=== PATIENT | male | born 1955 | race Caucasian/White ===

== ENCOUNTER 2017-11-16 15:55 | Emergency (ER) | payer OTHER, SELFPAY ==
[2017-11-16 16:01] VITALS: BP 130/86; PULSE 94; RESP 18; TEMP 36.9; O2SAT 98
--- NOTE | 2017-11-16 18:49 | ED.EXTPRO ---
HPI - Extremity Problem General Chief complaint: Extremity Problem,Nontraumatic Stated complaint: STATES NEEDS ARM DRAINED Time Seen by Provider: 11/16/17 17:33 Source: patient Limitations: no limitations History of Present Illness HPI Narrative: This a 62-year-old male comes to the emergency department with complaint of swelling and pain in his left elbow. Patient states that he noticed swelling in the last 2 days. He has always had a little bit of a fluid collection on the end of his elbow but he started getting painful just recently and then in the last day has been having swelling and redness. Had a area swelling at the end of the elbow has increased dramatically in size. Patient denies any fevers, he denies any numbness or tingling in his extremity. He is having pain, he is able to flex and extend his elbow but full flexion is comfortable. He has not had similar symptoms in the past. He has not had any nausea or vomiting no chest pain or shortness of breath. He has not had any injuries or cuts to the area. He does have a history of blood pressure, cholesterol as well as coronary artery disease with a prior CA. He states he has had no coronary artery stents. He has had drainage of his left knee in the past but states that that was a different circumstance. He denies any medication allergies. He does take aspirin daily. Related Data Home Medications Medication Instructions Recorded Confirmed ASPIRIN (#ASPIRIN) 81 mg PO QDAY #0 01/26/11 11/16/17 Previous Rx's Medication Instructions Recorded lisinopril 0 PO QDAY #180 tab 06/01/16 alendronate [Fosamax] 70 mg PO Q7D@0730 #12 tab 12/01/16 atorvastatin 80 mg PO HS #90 tab 12/01/16 prednisone 5 mg tablet See Label Instructions PO DAILY 10/13/17 #100 tab clindamycin HCl 300 mg PO QID #40 caplet 11/16/17 Allergies Allergy/AdvReac Type Severity Reaction Status Date / Time No Known Allergies Allergy Uncoded 11/16/17 16:01 Review of Systems Review of Systems All systems reviewed & are unremarkable except as noted in HPI and below Constitutional Denies fever(s) Cardiovascular Denies chest pain and Denies dyspnea Respiratory Denies dyspnea Gastrointestinal Gastrointestinal: Denies nausea and Denies vomiting Musculoskeletal Reports as per HPI, Reports joint swelling, Denies muscle weakness, Denies numbness and Denies tingling Integumentary/Breasts Reports erythema Neurologic Denies numbness and Denies tingling COUNT INCLUDES THE [facility] Medical History CAD (coronary artery disease) (Chronic) GERD (gastroesophageal reflux disease) (Chronic) Gout (Chronic) Hyperlipidemia (Chronic) Hypertension (Chronic) Osteopenia (Chronic) Steroid-dependent asthma (Chronic) Non-STEMI (non-ST elevated myocardial infarction) (Resolved 06/2009) Surgical History Status post arthroscopy (Resolved 2002) Status post cardiac catheterization (Resolved 06/2009) Social History Smoking Status: Never smoker Exam Narrative Exam Narrative: GENERAL: Alert and oriented x three, well-nourished, well-appearing male in mild distress. HEENT: Head normocephalic, atraumatic, EOMI, pupils reactive, face symmetric, moist mucous membranes NECK: Supple, full range of motion CARDIOVASCULAR: Regular rate and rhythm without murmurs, rubs or gallops. RESPIRATORY: Breath sounds equal bilaterally, no wheezes rales or rhonchi. EXTREMITIES: Normal range of motion of left upper extremity although patient has more pain with full flexion, he is fairly comfortable with flexion-extension. 2+ radial pulse on the left. He does have swelling of the left upper extremity as well as erythema extending from the elbow extending retirement up the arm. Patient also has some swelling extending towards the wrist. He has equal corpsman bilaterally. Full range of motion of all 5 fingers and muscle strength, patient has a 6 cm by 4 cm area of swelling over the elbow in the area of the bursa and extending distally. It is 10, platelets tender to palpation with what appears to be whiteheads forming although there is no drainage currently. no clubbing. Neurovascularly intact. NEUROLOGICAL: Cranial nerves II through XII grossly intact. Moving all extremities SKIN: Warm, dry, no petechiae, no rashes or lesions. Initial Vital Signs Initial Vital Signs: Vital Signs Temperature 98.4 F 11/16/17 16:01 Pulse Rate 94 H 11/16/17 16:01 Respiratory Rate 18 11/16/17 16:01 Blood Pressure 130/86 11/16/17 16:01 Pulse Oximetry 98 11/16/17 16:01 Procedures Bursa Procedure Time Out Performed: Yes Side of body: left Site of Procedure: olecranon bursa XRAY Obtained: none Antisepsis Used: Povidone-Iodine1% Local Anesthetic: lidocaine 1% Amount of anesthesia used (mL): 6 Fluid obtained (mL): 20 Fluid Type: bloody (Serosanguineous.) Patient Tolerated Procedure: Well Complications: none Additional Comments: Bandage was applied. Fluid was sent for analysis. Course Orders Ordered: ED Orders 11/16/17 22:39 Body Fluid Culture Stat Discontinued Medications Clindamycin HCl (Cleocin) 300 mg PO NOW ONE Stop: 11/16/17 21:36 Last Admin: 11/16/17 21:30 Dose: 300 mg Vancomycin HCl 1,250 mg/ (Sodium Chloride) 250 mls @ 250 mls/hr IV NOW ONE Stop: 11/16/17 18:48 Last Infusion: 11/16/17 21:10 Dose: 0 mls/hr Admin: 11/16/17 19:11 Dose: 250 mls/hr Consultations Consultation #1: Dr. Laith ndiaye, call back @[phone]. Asks for aspiration she does not currently recommend I and D and recommends keflex vs. other antibiotic. Does not recommend travel at this time. Time: 18:56 Vital Signs - 8 hr 11/16/17 16:01 11/16/17 20:29 Temperature 98.4 F 100.5 F H Pulse Rate 94 H 80 Respiratory Rate 18 18 Blood Pressure 130/86 Blood Pressure [Left Arm] 120/75 Pulse Oximetry 98 98 MDM - Extremity (Nontraumatic) Lab Data Result diagrams: 11/16/17 19:00 11/16/17 19:00 Lab Results 11/16/17 11/16/17 11/16/17 Range/Units 19:00 19:00 19:00 WBC 10.2 (4.5-11.0) X10^3/uL RBC 4.24 L (4.5-5.9) X10^6/uL Hgb 14.0 (13.5-17.5) g/dL Hct 41.3 (41-53) % MCV 97.2 (80-100) fL MCH 32.9 (26-34) PG MCHC 33.9 (30-36) % RDW 14.8 (11.6-14.8) % Plt Count 171 (150-400) X10^3/uL Neut % (Auto) 75.4 H (50-75) % Lymph % (Auto) 19.8 L (25-40) % [place] % (Auto) 3.9 (3-14) % Eos % (Auto) 0.6 L (2-4) % Baso % (Auto) 0.3 (0-2) % Neut # (Auto) 7700 H (5314-3349) /uL ESR 61 H (0-15) MM/HR Sodium 140 (137-145) mmol/L Potassium 4.2 (3.4-5.1) mmol/L Chloride 102 (98-107) mmol/L Carbon Dioxide 27 (22-32) mmol/L BUN 17 (9-20) mg/dL Creatinine 1.00 (0.66-1.25) mg/dL Estimated GFR > 60.0 (>60) mL/min BUN/Creatinine Ratio 17.0 (6-22) Glucose 95 (80-110) mg/dL Lactate (0.7-2.1) mmol/L Calcium 9.1 (8.4-10.2) mg/dL Total Bilirubin 0.7 (0.2-1.3) mg/dL AST 28 (17-59) IU/L ALT 34 (21-72) IU/L Alkaline Phosphatase 65 (38-126) U/L C-Reactive Protein 6.9 H (<1.0) mg/dL Total Protein 7.5 (6.3-8.2) g/dL Albumin 4.2 (3.5-5.0) g/dL Globulin 3.3 (1.7-4.1) g/dL Albumin/Globulin Ratio 1.3 (1.0-2.8) Procalcitonin 0.07 (<0.5) ng/mL Fluid Color Fluid Appearance Fluid RBC /uL Fld Tot Nucleated Cell /uL Fluid Polynuclear WBCs % Fluid Mononuclear WBCs % Fluid Eosinophils % Body Fluid Clot 11/16/17 11/16/17 Range/Units 19:00 21:25 WBC (4.5-11.0) X10^3/uL RBC (4.5-5.9) X10^6/uL Hgb (13.5-17.5) g/dL Hct (41-53) % MCV (80-100) fL MCH (26-34) PG MCHC (30-36) % RDW (11.6-14.8) % Plt Count (150-400) X10^3/uL Neut % (Auto) (50-75) % Lymph % (Auto) (25-40) % [place] % (Auto) (3-14) % Eos % (Auto) (2-4) % Baso % (Auto) (0-2) % Neut # (Auto) (8652-7726) /uL ESR (0-15) MM/HR Sodium (137-145) mmol/L Potassium (3.4-5.1) mmol/L Chloride (98-107) mmol/L Carbon Dioxide (22-32) mmol/L BUN (9-20) mg/dL Creatinine (0.66-1.25) mg/dL Estimated GFR (>60) mL/min BUN/Creatinine Ratio (6-22) Glucose (80-110) mg/dL Lactate 0.8 (0.7-2.1) mmol/L Calcium (8.4-10.2) mg/dL Total Bilirubin (0.2-1.3) mg/dL AST (17-59) IU/L ALT (21-72) IU/L Alkaline Phosphatase (38-126) U/L C-Reactive Protein (<1.0) mg/dL Total Protein (6.3-8.2) g/dL Albumin (3.5-5.0) g/dL Globulin (1.7-4.1) g/dL Albumin/Globulin Ratio (1.0-2.8) Procalcitonin (<0.5) ng/mL Fluid Color Yellow Fluid Appearance [place] 51579 /uL Fld Tot Nucleated Cell 520 /uL Fluid Polynuclear WBCs 90 % Fluid Mononuclear WBCs 10 % Fluid Eosinophils 0 % Body Fluid Clot Specimen clotted MDM Narrative Medical decision making narrative: Discussed with patient he does not appear to have purulent fluid on his initial evaluation. Fluid was sent for analysis. Patient was asked return in the morning for re-evaluation and possibly repeat antibiotics and/or admission. Patient does not appear to have any signs of sepsis. He does have an elevated ESR and CRP. Case was discussed with Dr. Ozuna from Orthopedic surgery. We discussed that I suspect that he has an infection of the bursa. Patient is quite adamant that he would like to return home and ordered travel to [place] tomorrow late in the afternoon. We discussed that I do not recommend this but he was given antibiotics in case he did choose to travel. Discharge Plan Departure Patient Disposition: Home Clinical Impression: Bursitis, Cellulitis Discharge Date/Time: 11/16/17 21:45 Interventions: ED Discharge Assessment Last Done: 11/16/17 21:54 Instructions: DI for Cellulitis -- Adult Activity Restrictions/Additional Instructions: Return to the ER by 9am tomorrow. Start antibiotics and take until gone. I do not recommend travel but if you do return to an ER if you have fevers greater than 100.4F, increasing swelling, numbness, weakness or worsening signs of infection. Prescriptions: New clindamycin HCl 300 mg capsule 300 mg PO QID Qty: 40 RF: 0 No Action ASPIRIN (#ASPIRIN) 81 mg PO QDAY Qty: 0 RF: 0 lisinopril 20 MG tablet PO QDAY Qty: 180 RF: 3 atorvastatin 80 MG tablet 80 mg PO HS Qty: 90 RF: 3 alendronate [Fosamax] 70 MG tablet 70 mg PO Q7D@0730 Qty: 12 RF: 3 prednisone 5 mg tablet See Label Instructions PO DAILY Qty: 100 RF: 0
--- NOTE | 2017-11-16 18:52 | ED_ITS ---
HPI - Extremity Problem General Chief complaint: Extremity Problem,Nontraumatic Stated complaint: STATES NEEDS ARM DRAINED Time Seen by Provider: 11/16/17 17:33 Source: patient Limitations: no limitations History of Present Illness HPI Narrative: This a 62-year-old male comes to the emergency department with complaint of swelling and pain in his left elbow. Patient states that he noticed swelling in the last 2 days. He has always had a little bit of a fluid collection on the end of his elbow but he started getting painful just recently and then in the last day has been having swelling and redness. Had a area swelling at the end of the elbow has increased dramatically in size. Patient denies any fevers, he denies any numbness or tingling in his extremity. He is having pain, he is able to flex and extend his elbow but full flexion is comfortable. He has not had similar symptoms in the past. He has not had any nausea or vomiting no chest pain or shortness of breath. He has not had any injuries or cuts to the area. He does have a history of blood pressure, cholesterol as well as coronary artery disease with a prior ID. He states he has had no coronary artery stents. He has had drainage of his left knee in the past but states that that was a different circumstance. He denies any medication allergies. He does take aspirin daily. Related Data Home Medications Medication Instructions Recorded Confirmed ASPIRIN (#ASPIRIN) 81 mg PO QDAY #0 01/26/11 11/16/17 Previous Rx's Medication Instructions Recorded lisinopril 0 PO QDAY #180 tab 06/01/16 alendronate [Fosamax] 70 mg PO Q7D@0730 #12 tab 12/01/16 atorvastatin 80 mg PO HS #90 tab 12/01/16 prednisone 5 mg tablet See Label Instructions PO DAILY 10/13/17 #100 tab clindamycin HCl 300 mg PO QID #40 caplet 11/16/17 Allergies Allergy/AdvReac Type Severity Reaction Status Date / Time No Known Allergies Allergy Uncoded 11/16/17 16:01 Review of Systems Review of Systems All systems reviewed & are unremarkable except as noted in HPI and below Constitutional Denies fever(s) Cardiovascular Denies chest pain and Denies dyspnea Respiratory Denies dyspnea Gastrointestinal Gastrointestinal: Denies nausea and Denies vomiting Musculoskeletal Reports as per HPI, Reports joint swelling, Denies muscle weakness, Denies numbness and Denies tingling Integumentary/Breasts Reports erythema Neurologic Denies numbness and Denies tingling [facility] Medical History CAD (coronary artery disease) (Chronic) GERD (gastroesophageal reflux disease) (Chronic) Gout (Chronic) Hyperlipidemia (Chronic) Hypertension (Chronic) Osteopenia (Chronic) Steroid-dependent asthma (Chronic) Non-STEMI (non-ST elevated myocardial infarction) (Resolved 06/2009) Surgical History Status post arthroscopy (Resolved 2002) Status post cardiac catheterization (Resolved 06/2009) Social History Smoking Status: Never smoker Exam Narrative Exam Narrative: GENERAL: Alert and oriented x three, well-nourished, well- appearing male in mild distress. HEENT: Head normocephalic, atraumatic, EOMI, pupils reactive, face symmetric, moist mucous membranes NECK: Supple, full range of motion CARDIOVASCULAR: Regular rate and rhythm without murmurs, rubs or gallops. RESPIRATORY: Breath sounds equal bilaterally, no wheezes rales or rhonchi. EXTREMITIES: Normal range of motion of left upper extremity although patient has more pain with full flexion, he is fairly comfortable with flexion- extension. 2+ radial pulse on the left. He does have swelling of the left upper extremity as well as erythema extending from the elbow extending intermediate up the arm. Patient also has some swelling extending towards the wrist. 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 Full range of motion of all 5 fingers and muscle strength, patient has a 6 cm by 4 cm area of swelling over the elbow in the area of the bursa and extending distally. It is 10, platelets tender to palpation with what appears to be whiteheads forming although there is no drainage currently. no clubbing. Neurovascularly intact. NEUROLOGICAL: Cranial nerves II through XII grossly intact. Moving all extremities SKIN: Warm, dry, no petechiae, no rashes or lesions. Initial Vital Signs Initial Vital Signs: Vital Signs Temperature 98.4 F 11/16/17 16:01 Pulse Rate 94 H 11/16/17 16:01 Respiratory Rate 18 11/16/17 16:01 Blood Pressure 130/86 11/16/17 16:01 Pulse Oximetry 98 11/16/17 16:01 Procedures Bursa Procedure Time Out Performed: Yes Side of body: left Site of Procedure: olecranon bursa XRAY Obtained: none Antisepsis Used: Povidone-Iodine1% Local Anesthetic: lidocaine 1% Amount of anesthesia used (mL): 6 Fluid obtained (mL): 20 Fluid Type: bloody (Serosanguineous.) Patient Tolerated Procedure: Well Complications: none Additional Comments: Bandage was applied. Fluid was sent for analysis. Course Orders Ordered: ED Orders 11/16/17 22:39 Body Fluid Culture Stat Discontinued Medications Clindamycin HCl (Cleocin) 300 mg PO NOW ONE Stop: 11/16/17 21:36 Last Admin: 11/16/17 21:30 Dose: 300 mg Vancomycin HCl 1,250 mg/ (Sodium Chloride) 250 mls @ 250 mls/hr IV NOW ONE Stop: 11/16/17 18:48 Last Infusion: 11/16/17 21:10 Dose: 0 mls/hr Admin: 11/16/17 19:11 Dose: 250 mls/hr Consultations Consultation #1: Dr. Laith ndiaye, call back @[phone]. Asks for aspiration she does not currently recommend I and D and recommends keflex vs. other antibiotic. Does not recommend travel at this time. Time: 18:56 Vital Signs - 8 hr 11/16/17 16:01 11/16/17 20:29 Temperature 98.4 F 100.5 F H Pulse Rate 94 H 80 Respiratory Rate 18 18 Blood Pressure 130/86 Blood Pressure [Left Arm] 120/75 Pulse Oximetry 98 98 MDM - Extremity (Nontraumatic) Lab Data Result diagrams: 11/16/17 19:00 11/16/17 19:00 Lab Results 11/16/17 11/16/17 11/16/17 Range/Units 19:00 19:00 19:00 WBC 10.2 (4.5-11.0) X10^3/uL RBC 4.24 L (4.5-5.9) X10^6/uL Hgb 14.0 (13.5-17.5) g/dL Hct 41.3 (41-53) % MCV 97.2 (80-100) fL MCH 32.9 (26-34) PG MCHC 33.9 (30-36) % RDW 14.8 (11.6-14.8) % Plt Count 171 (150-400) X10^3/uL Neut % (Auto) 75.4 H (50-75) % Lymph % (Auto) 19.8 L (25-40) % [place] % (Auto) 3.9 (3-14) % Eos % (Auto) 0.6 L (2-4) % Baso % (Auto) 0.3 (0-2) % Neut # (Auto) 7700 H (6859-0570) /uL ESR 61 H (0-15) MM/HR Sodium 140 (137-145) mmol/L Potassium 4.2 (3.4-5.1) mmol/L Chloride 102 (98-107) mmol/L Carbon Dioxide 27 (22-32) mmol/L BUN 17 (9-20) mg/dL Creatinine 1.00 (0.66-1.25) mg/dL Estimated GFR > 60.0 (>60) mL/min BUN/Creatinine Ratio 17.0 (6-22) Glucose 95 (80-110) mg/dL Lactate (0.7-2.1) mmol/L Calcium 9.1 (8.4-10.2) mg/dL Total Bilirubin 0.7 (0.2-1.3) mg/dL AST 28 (17-59) IU/L ALT 34 (21-72) IU/L Alkaline Phosphatase 65 (38-126) U/L C-Reactive Protein 6.9 H (<1.0) mg/dL Total Protein 7.5 (6.3-8.2) g/dL Albumin 4.2 (3.5-5.0) g/dL Globulin 3.3 (1.7-4.1) g/dL Albumin/Globulin Ratio 1.3 (1.0-2.8) Procalcitonin 0.07 (<0.5) ng/mL Fluid Color Fluid Appearance Fluid RBC /uL Fld Tot Nucleated Cell /uL Fluid Polynuclear WBCs % Fluid Mononuclear WBCs % Fluid Eosinophils % Body Fluid Clot 11/16/17 11/16/17 Range/Units 19:00 21:25 WBC (4.5-11.0) X10^3/uL RBC (4.5-5.9) X10^6/uL Hgb (13.5-17.5) g/dL Hct (41-53) % MCV (80-100) fL MCH (26-34) PG MCHC (30-36) % RDW (11.6-14.8) % Plt Count (150-400) X10^3/uL Neut % (Auto) (50-75) % Lymph % (Auto) (25-40) % [place] % (Auto) (3-14) % Eos % (Auto) (2-4) % Baso % (Auto) (0-2) % Neut # (Auto) (7449-2450) /uL ESR (0-15) MM/HR Sodium (137-145) mmol/L Potassium (3.4-5.1) mmol/L Chloride (98-107) mmol/L Carbon Dioxide (22-32) mmol/L BUN (9-20) mg/dL Creatinine (0.66-1.25) mg/dL Estimated GFR (>60) mL/min BUN/Creatinine Ratio (6-22) Glucose (80-110) mg/dL Lactate 0.8 (0.7-2.1) mmol/L Calcium (8.4-10.2) mg/dL Total Bilirubin (0.2-1.3) mg/dL AST (17-59) IU/L ALT (21-72) IU/L Alkaline Phosphatase (38-126) U/L C-Reactive Protein (<1.0) mg/dL Total Protein (6.3-8.2) g/dL Albumin (3.5-5.0) g/dL Globulin (1.7-4.1) g/dL Albumin/Globulin Ratio (1.0-2.8) Procalcitonin (<0.5) ng/mL Fluid Color Yellow Fluid Appearance [place] 58671 /uL Fld Tot Nucleated Cell 520 /uL Fluid Polynuclear WBCs 90 % Fluid Mononuclear WBCs 10 % Fluid Eosinophils 0 % Body Fluid Clot Specimen clotted MDM Narrative Medical decision making narrative: Discussed with patient he does not appear to have purulent fluid on his initial evaluation. Fluid was sent for analysis. Patient was asked return in the morning for re-evaluation and possibly repeat antibiotics and/or admission. Patient does not appear to have any signs of sepsis. He does have an elevated ESR and CRP. Case was discussed with Dr. Ozuna from Orthopedic surgery. We discussed that I suspect that he has an infection of the bursa. Patient is quite adamant that he would like to return home and ordered travel to [place] tomorrow late in the afternoon. We discussed that I do not recommend this but he was given antibiotics in case he did choose to travel. Discharge Plan Departure Patient Disposition: Home Clinical Impression: Bursitis, Cellulitis Discharge Date/Time: 11/16/17 21:45 Interventions: ED Discharge Assessment Last Done: 11/16/17 21:54 Instructions: DI for Cellulitis -- Adult Activity Restrictions/Additional Instructions: Return to the ER by 9am tomorrow. Start antibiotics and take until gone. I do not recommend travel but if you do return to an ER if you have fevers greater than 100.4F, increasing swelling, numbness, weakness or worsening signs of infection. Prescriptions: New clindamycin HCl 300 mg capsule 300 mg PO QID Qty: 40 RF: 0 No Action ASPIRIN (#ASPIRIN) 81 mg PO QDAY Qty: 0 RF: 0 lisinopril 20 MG tablet PO QDAY Qty: 180 RF: 3 atorvastatin 80 MG tablet 80 mg PO HS Qty: 90 RF: 3 alendronate [Fosamax] 70 MG tablet 70 mg PO Q7D@0730 Qty: 12 RF: 3 prednisone 5 mg tablet See Label Instructions PO DAILY Qty: 100 RF: 0
[2017-11-16 19:11] LABS: Add Manual Diff / Slide Review NO; Basophils Percent Auto 0.3 % (0-2); Eosinophils Percent Auto 0.6 % (2-4); Hematocrit 41.3 % (41-53); Lymphocytes Percent Auto 19.8 % (25-40); Mean Corpuscular HGB Conc 33.9 % (30-36); Mean Corpuscular Hemoglobin 32.9 PG (26-34); Mean Corpuscular Volume 97.2 fL (80-100); Monocytes Percent Auto 3.9 % (3-14); Neutrophils Absolute Auto 7700 /uL (3000-5900); Neutrophils Percent Auto 75.4 % (50-75); Platelet Count 171 X10^3/uL (150-400); Red Blood Cell Count 4.24 X10^6/uL (4.5-5.9); Red Cell Distribution Width 14.8 % (11.6-14.8); White Blood Cell Count 10.2 X10^3/uL (4.5-11.0)
[2017-11-16] MEDS: VANCOMYCIN 1,250 MG in SODIUM CHLORIDE 0.9% 250 ML IV (19:11)
[2017-11-16 19:29] LABS: Erythrocyte Sedimentation Rate 61 MM/HR (0-15)
[2017-11-16 19:31] LABS: Lactate (Lactic Acid) 0.8 mmol/L (0.7-2.1)
[2017-11-16 19:32] LABS: Alanine Aminotransferase 34 IU/L (21-72); Albumin 4.2 g/dL (3.5-5.0); Albumin Globulin Ratio 1.3 (1.0-2.8); Alkaline Phosphatase 65 U/L (38-126); Aspartate Aminotransferase 28 IU/L (17-59); Bilirubin Total 0.7 mg/dL (0.2-1.3); Blood Urea Nitrogen 17 mg/dL (9-20); C-Reactive Protein Quant 6.9 mg/dL (<1.0); Calcium 9.1 mg/dL (8.4-10.2); Carbon Dioxide 27 mmol/L (22-32); Chloride 102 mmol/L (98-107); Estimated Glomerular Filt Rate > 60.0 mL/min (>60); Globulin 3.3 g/dL (1.7-4.1); Glucose 95 mg/dL (80-110); HEMOLYSIS < 15 (0-50); Potassium 4.2 mmol/L (3.4-5.1); Sodium 140 mmol/L (137-145); Total Protein 7.5 g/dL (6.3-8.2)
[2017-11-16 20:17] LABS: Procalcitonin 0.07 ng/mL (<0.5)
[2017-11-16 20:29] VITALS: BP 120/75; PULSE 80; RESP 18; TEMP 38.1; O2SAT 98
[2017-11-16] MEDS: CLINDAMYCIN 150 MG CAPSULE 300 MG PO (21:30)
--- NOTE | 2017-11-16 21:52 | PC.NURSE ---
his left arm was dressed with 4by 4 and kerlix and then coban after had i and d the site.no drainage at site.his right arm iv was left patent and in place and covered with coban for possible use in am.
[2017-11-16 23:12] LABS: Body Fluid Appearance HAZY; Body Fluid Clotted? SPECIMEN CLOTTED; Body Fluid Color YELLOW; Body Fluid Tot Nucleated Cells 520 /uL
[2017-11-16 23:13] LABS: Body Fluid Red Blood Cells 12994 /uL
[2017-11-16 23:14] LABS: Eosinophils Body Fluid 0 %; Mononuclear WBC Body Fluid 10 %; Other Cells Body Fluid 0 %; Polynuclear WBC Body Fluid 90 %
== END 2017-11-16 21:45 | disposition home or self-care (01) ==
PROVIDERS: Emergency Provider Emergency Medicine; Family Provider Family Medicine; PCP Family Medicine
DX: M70.32 Other bursitis of elbow, left elbow (principal); L03.114 Cellulitis of left upper limb
CPT/HCPCS: 23931; 36591; 80053; 83605; 84145; 85025; 85651; 86140; 87040; 89051; 89060; 96365; 96366; 99283; 99284

== ENCOUNTER 2017-11-17 08:56 | Emergency (ER) | payer OTHER, SELFPAY ==
[2017-11-17] MEDS: VANCOMYCIN 1,000 MG/200 ML FROZ.PIGGY 200 MG IV (09:20)
--- NOTE | 2017-11-17 09:36 | ED_ITS ---
HPI - Recheck/Abnormal Lab/Rx General Chief Complaint: Recheck/Abnormal Lab/Rx Stated Complaint: ER CALLED SAID TO COME BACK (ELBOW) Time Seen by Provider: 11/17/17 09:02 Source: patient Mode of arrival: ambulatory Limitations: no limitations History of Present Illness HPI narrative: Patient is here for recheck of his left elbow bursitis and cellulitis for which she was evaluated yesterday. Patient states that he has not developed any new symptoms; he thinks the redness might be better and the swelling also. He denies fevers or increased pain in the elbow. Patient was seen yesterday by Dr. piyush portillo and Orthopedics was consulted. Per orthopedics recommendation, the patient's olecranon bursa was aspirated, but I and D was recommended against by Orthopedics. Patient was given a dose of IV vancomycin, and as he is scheduled to fly to [place] this afternoon, he was asked to return and have his elbow rechecked. complaint: other (Cellulitis recheck.) Initial visit (ago): day(s) (One) Initial visit for: cellulitis Returns today for: other Symptoms since prior visit: no new symptoms Context: planned re-check Associated symptoms: none Related Data Home Medications Medication Instructions Recorded Confirmed ASPIRIN (#ASPIRIN) 81 mg PO QDAY #0 01/26/11 11/16/17 Previous Rx's Medication Instructions Recorded lisinopril 0 PO QDAY #180 tab 06/01/16 alendronate [Fosamax] 70 mg PO Q7D@0730 #12 tab 12/01/16 atorvastatin 80 mg PO HS #90 tab 12/01/16 prednisone 5 mg tablet See Label Instructions PO DAILY 10/13/17 #100 tab clindamycin HCl 300 mg PO QID #40 caplet 11/16/17 Allergies Allergy/AdvReac Type Severity Reaction Status Date / Time No Known Drug Allergies Allergy Verified 11/17/17 09:02 Review of Systems Review of Systems All systems reviewed & are unremarkable except as noted in HPI and below Constitutional Denies chills, Denies fever(s), Denies lethargy and Denies weakness Eyes Denies change in vision, Denies eye discharge, Denies irritation and Denies loss of vision ENT Ears, Nose, Mouth, and Throat: Denies change in voice, Denies neck pain and Denies sore throat Cardiovascular Denies chest pain, Denies irregular heart rhythm, Denies lightheadedness, Denies palpitations, Denies dyspnea, Denies dyspnea on exertion and Denies orthopnea Respiratory Denies cough, Denies dyspnea, Denies dyspnea on exertion and Denies wheezing Gastrointestinal Gastrointestinal: Denies abdominal pain, Denies change in bowel habits, Denies diarrhea, Denies nausea and Denies vomiting Genitourinary Denies hematuria, Denies flank pain, Denies urinary incontinence and Denies urinary urgency Musculoskeletal Denies neck pain Comments: Swelling of left olecranon bursa. Integumentary/Breasts Denies pruritus, Reports erythema (Left elbow), Denies rash and Denies wounds Neurologic Denies confusion, Denies loss of vision and Denies weakness Psychiatric Denies anxiety, Denies confusion, Denies depression, Denies homicidal ideation and Denies suicidal ideation Endocrine Denies palpitations Hematologic/Lymphatic Denies easy bruising Allergic/Immunologic Denies wheezing [facility] Medical History CAD (coronary artery disease) (Chronic) GERD (gastroesophageal reflux disease) (Chronic) Gout (Chronic) Hyperlipidemia (Chronic) Hypertension (Chronic) Osteopenia (Chronic) Steroid-dependent asthma (Chronic) Non-STEMI (non-ST elevated myocardial infarction) (Resolved 06/2009) Surgical History Status post arthroscopy (Resolved 2002) Status post cardiac catheterization (Resolved 06/2009) Social History Smoking Status: Never smoker Exam Initial Vital Signs Initial Vital Signs: Vital Signs Pulse Rate 79 11/17/17 10:00 Blood Pressure 117/66 11/17/17 10:00 Pulse Oximetry 99 11/17/17 10:00 Const General: cooperative and well developed Nutritional Appearance: well nourished Orientation: alert, awake, oriented x3 and not confused [facility] Head: normocephalic and atraumatic Nose: external nose normal and No nasal discharge Face and sinus: face symmetric Eyes General: appearance normal, both eyes and all related structures Eyelids: eyelids normal Conjunctivae: conjunctivae normal Sclera: sclerae normal Pupils: PERRL EOM: EOM intact bilaterally Neck Neck: normal visual inspection, trachea midline, No lymphadenopathy, No midline deformity and No JVD Lymphatic: No lymphedema Chest Chest: normal inspection of the chest Resp Effort & Inspection: normal respiratory effort, able to speak in complete sentences, no respiratory distress and no use of accessory muscles Auscultation: clear to auscultation bilaterally, no rales, no rhonchi and no wheezes Cardio Rate: regular rate Rhythm: regular rhythm Heart Sounds: no click, no gallops, no murmurs and no rubs Pulses: normal peripheral pulses Back/Spine/Pelvis Other: No gross limitations of range of motion. Skin General: no rashes or lesions noted, No jaundice and No petechiae Neuro General: alert, oriented x3, gait normal and no focal motor deficits Speech: speech normal Extrem General: full ROM Other: Patient has marked, fluctuant enlargement of his left olecranon bursa extending along the ulnar aspect of his left forearm for about 4 cm. There is very localized erythema directly overlying the enlarged area, but no erythema extending beyond this. Mild tenderness is noted. Psych Appearance: well kempt Mental Status: mental status grossly normal Attitude: cooperative Thought Content: normal and suicidality Judgment: judgment good Course Course Narrative: Patient was given a 2nd dose of vancomycin in the emergency department, as his IV was still in, and he responded very well to the dose last night. Patient has erythema does markedly improved from what was observed last night when he was here. I did discuss with the patient that at this point, his fluid looks good, and there is no evidence of an infected bursitis. The patient has chronic enlargement of his olecranon bursa at this point, given that the orthopedist has recommended no I and D, we will leave this be. Patient will continue treatment with oral antibiotics after this visit. I do feel that given the appearance elbow today, he is clear to go to [place], where further medical resources are readily available, should he need them. Orders Ordered: Discontinued Medications Vancomycin HCl/Dextrose (Vancomycin) 1,000 mg in 200 mls @ 200 mls/hr IV NOW ONE Stop: 11/17/17 10:04 Last Infusion: 11/17/17 10:44 Dose: 0 mls/hr Admin: 11/17/17 09:20 Dose: 200 mls/hr MDM - Recheck/Abnormal Lab/Rx Medical Records Attestation: I reviewed the patient's medical records. Discharge Plan Departure Patient Disposition: Home Clinical Impression: Cellulitis, Bursitis, olecranon Discharge Date/Time: 11/17/17 11:12 Interventions: ED Discharge Assessment Last Done: 11/17/17 10:45 Instructions: DI for Cellulitis -- Adult, DI for Elbow Bursitis Prescriptions: No Action ASPIRIN (#ASPIRIN) 81 mg PO QDAY Qty: 0 RF: 0 lisinopril 20 MG tablet PO QDAY Qty: 180 RF: 3 atorvastatin 80 MG tablet 80 mg PO HS Qty: 90 RF: 3 alendronate [Fosamax] 70 MG tablet 70 mg PO Q7D@0730 Qty: 12 RF: 3 prednisone 5 mg tablet See Label Instructions PO DAILY Qty: 100 RF: 0 clindamycin HCl 300 mg capsule 300 mg PO QID Qty: 40 RF: 0
[2017-11-17 10:00] VITALS: BP 117/66; PULSE 79; O2SAT 99
[2017-11-17 10:45] VITALS: BP 122/78; PULSE 79; RESP 20; O2SAT 100
== END 2017-11-17 11:12 | disposition home or self-care (01) ==
PROVIDERS: Emergency Provider Emergency Medicine; Family Provider Family Medicine; PCP Family Medicine
DX: M70.22 Olecranon bursitis, left elbow (principal)
CPT/HCPCS: 96365; 96366; 99283; 99284; J3370

== ENCOUNTER → 2018-01-10 08:39 | Outpatient (CLI) | payer OTHER, SELFPAY ==
[2018-01-10 09:27] LABS: Add Manual Diff / Slide Review NO; Basophils Percent Auto 0.3 % (0-2); Eosinophils Percent Auto 3.5 % (2-4); Hematocrit 46.7 % (41-53); Hemoglobin 15.5 g/dL (13.5-17.5); Lymphocytes Percent Auto 41.4 % (25-40); Mean Corpuscular HGB Conc 33.3 % (30-36); Mean Corpuscular Hemoglobin 32.3 PG (26-34); Monocytes Percent Auto 3.4 % (3-14); Neutrophils Absolute Auto 6800 /uL (3000-5900); Neutrophils Percent Auto 51.4 % (50-75); Platelet Count 209 X10^3/uL (150-400); Red Blood Cell Count 4.81 X10^6/uL (4.5-5.9); Red Cell Distribution Width 15.1 % (11.6-14.8); White Blood Cell Count 13.2 X10^3/uL (4.5-11.0)
[2018-01-10 09:58] LABS: Alanine Aminotransferase 57 IU/L (21-72); Albumin 4.5 g/dL (3.5-5.0); Albumin Globulin Ratio 1.3 (1.0-2.8); Alkaline Phosphatase 66 U/L (38-126); Aspartate Aminotransferase 37 IU/L (17-59); BUN Creatinine Ratio 20.9 (6-22); Bilirubin Total 0.7 mg/dL (0.2-1.3); Blood Urea Nitrogen 23 mg/dL (9-20); Calcium 9.8 mg/dL (8.4-10.2); Carbon Dioxide 27 mmol/L (22-32); Chloride 100 mmol/L (98-107); Estimated Glomerular Filt Rate > 60.0 mL/min (>60); Globulin 3.4 g/dL (1.7-4.1); Glucose 86 mg/dL (80-110); HEMOLYSIS 34 (0-50); Potassium 4.8 mmol/L (3.4-5.1); Sodium 142 mmol/L (137-145); Total Protein 7.9 g/dL (6.3-8.2)
[2018-01-10 10:24] LABS: Cortisol AM (Before 10AM) 10.4 ug/dL (4.46-22.7)
[2018-01-13 07:43] LABS: Immunoglobulin E 56 kU/L (< 115)
== END ==
PROVIDERS: Family Provider Family Medicine; PCP Family Medicine; Visit Provider Allergy & Immunology
DX: J45.50 Severe persistent asthma, uncomplicated (principal)
CPT/HCPCS: 36415; 80053; 82533; 82785; 85025

== ENCOUNTER → 2018-08-01 10:05 | Outpatient (CLI) | payer OTHER, SELFPAY ==
--- NOTE | 2018-08-01 10:07 | DI.RAD.S_ITS ---
PROCEDURE: XR SHOULDER RT MIN 2V INDICATIONS: pain TECHNIQUE: 3 views of the shoulder were acquired. COMPARISON: [facility], , UP EXT WITH, 06/02/2006, 15:18. [facility], , SHOULDER INJECTION FOR MR/CT, 06/02/2006, 14:24. FINDINGS: Bones: No fractures or dislocations. No suspicious bony lesions. There is mild/moderate acromioclavicular and glenohumeral joint degeneration. Visualized ribs appear intact. Soft tissues: No suspicious soft tissue calcifications. IMPRESSION: Mild to moderate degenerative joint disease. Dictated by: Teresa Gillis M.D. on 08/01/2018 at 14:17 Approved by: Teresa Gillis M.D. on 08/01/2018 at 14:20
== END ==
PROVIDERS: PCP Family Medicine; Visit Provider Family Medicine
DX: M25.511 Pain in right shoulder (principal); M19.011 Primary osteoarthritis, right shoulder
CPT/HCPCS: 73030

== ENCOUNTER → 2018-08-05 08:32 | Outpatient (CLI) | payer OTHER, SELFPAY ==
--- NOTE | 2018-08-05 08:34 | DI.MRI.S_ITS ---
PROCEDURE: MR SHOULDER RT WO CON INDICATIONS: pain TECHNIQUE: Noncontrast oblique coronal T2 fast spin echo with fat saturation, oblique sagittal T1 spin echo and T2 fast spin echo with fat saturation, axial T1 spin echo and T2 fast spin echo with fat saturation through the shoulder. COMPARISON: None. FINDINGS: Image quality: Excellent. Rotator cuff: Supraspinatus tendinopathy with partial thickness articular and bursal sided tear. No definite full-thickness defect however. Infraspinatus tendinopathy thickening and interstitial tearing with a small full-thickness tear measuring 4 mm in AP dimension involving anterior fibers image 12 series 10. Teres minor appears grossly intact. Subscapularis tendon appears grossly intact. Fatty infiltration of the supraspinatus and infraspinatus muscles, with minimal atrophy of the infraspinatus muscle. Bones and bursae: No bone marrow contusions or fractures. Moderate hypertrophic acromioclavicular joint degeneration. Moderate glenohumeral joint degeneration. The acromion demonstrates conventional anatomy, without an os acromiale. Glenohumeral joint effusion is present, moderate. Capsule and soft tissues: Circumferential degeneration and fraying of the labrum in particular along the anterior inferior and posterior segments, however no definite intrasubstance fluid signal intensity. This is likely chronic/degenerative. The long head of the biceps tendon is not well-seen and may be ruptured. The rotator interval appears normal, without fibrosis. The coracohumeral ligament is normal in thickness. IMPRESSION: Supraspinatus tendinopathy with partial thickness articular and bursal sided tear. Infraspinatus tendinopathy, with interstitial tearing and small full-thickness tear at the anterior aspect as detailed above. Minimal atrophy of the infraspinatus muscle. Moderate glenohumeral joint effusion. Circumferential degeneration/chronic tear of the labrum, predominantly involving the anterior, inferior and posterior segments. Ruptured long head biceps tendon. Please correlate with clinical exam findings. Dictated by: Alverto Way M.D. on 08/07/2018 at 11:11 Approved by: Alverto Way M.D. on 08/07/2018 at 11:19
== END ==
PROVIDERS: PCP Family Medicine; Visit Provider Family Medicine
DX: M25.511 Pain in right shoulder (principal); M75.111 Incomplete rotator cuff tear or rupture of right shoulder, not specified as traumatic; S43.491A Other sprain of right shoulder joint, initial encounter; S46.111A Strain of muscle, fascia and tendon of long head of biceps, right arm, initial encounter; M25.411 Effusion, right shoulder
CPT/HCPCS: 73221

== ENCOUNTER → 2018-12-07 12:55 | Outpatient (CLI) | payer OTHER, SELFPAY ==
--- NOTE | 2018-12-07 | DI.CT.S_ITS ---
PROCEDURE: CT SINUS SCREEN WO CON INDICATIONS: Anosmia,Chronic cough,Asthma TECHNIQUE: Noncontrast 3.0 mm axial images acquired from the frontal sinuses to the mid-sella, with coronal and sagittal reformats. For radiation dose reduction, the following was used: automated exposure control, adjustment of mA and/or kV according to patient size. COMPARISON: [facility], CT, SINUS SCREEN, 08/09/2008, 16:49. [facility], CT, SINUS SCREEN, 02/15/2008, 9:42. CT, SINUS SCREEN, 06/07/2007, 10:58. FINDINGS: Image quality: Excellent. Maxillary Sinuses: No bony remodeling or destruction. Bilateral antrectomies. There is mucosal thickening bilaterally. The right maxillary sinus is near completely opacified.. Ethmoid Air Cells: No bony remodeling or destruction. Marked bilateral mucosal thickening. Sphenoid Sinuses: No bony remodeling or destruction. Bilateral mucosal thickening. Frontal Sinuses: No bony remodeling or destruction. Bilateral mucosal thickening. Ostiomeatal Complexes: Ostiomeatal complexes are patent. No Tank cells. Miscellaneous: Visualized intra-orbital contents are normal. No jerry bullosa or paradoxical turbinate curvature. No nasal septal deviation. IMPRESSION: Persistent pansinusitis. Dictated by: Teresa Gillis M.D. on 12/07/2018 at 13:21 Transcribed by: JOSE C on 12/07/2018 at 13:29 Approved by: Teresa Gillis M.D. on 12/07/2018 at 17:46
== END ==
PROVIDERS: PCP Family Medicine; Visit Provider Physician Assistant Medical
DX: J32.4 Chronic pansinusitis (principal); R43.0 Anosmia; R05 Cough; J45.909 Unspecified asthma, uncomplicated
CPT/HCPCS: 70486

== ENCOUNTER → 2019-01-16 12:16 | Outpatient (CLI) | payer OTHER, SELFPAY ==
--- NOTE | 2019-01-16 12:18 | DI.RAD.S_ITS ---
PROCEDURE: XR HIP W PEL IF DONE LT MIN 4V INDICATIONS: Pain TECHNIQUE: AP pelvis with lateral view(s) of the right and left hip(s). COMPARISON: None. FINDINGS: Bones: No fractures or dislocations. Pelvic ring appears intact. No suspicious bony lesions. Mild joint narrowing with periarticular osteophyte formation. Degenerative disc and facet disease involves the inferior lumbar spine. Soft tissues: The visualized bowel gas pattern is normal. No suspicious soft tissue calcifications. IMPRESSION: Mild symmetric hip joint degeneration. Dictated by: Luis GAMA Interpreted: Odette Lucas MD on 01/16/2019 at 17:37 Approved by: Odette Lucas M.D. on 01/16/2019 at 18:37
--- NOTE | 2019-01-16 12:18 | DI.RAD.S_ITS ---
PROCEDURE: XR LUMBAR SPINE MIN 4V INDICATIONS: Pain TECHNIQUE: 5 views of the lumbar spine were acquired. COMPARISON: None. FINDINGS: Bones: 5 nonrib-bearing vertebrae are present. Loss of lordosis which could be related to muscle spasm, rigidity or simply positional. Multilevel disc degeneration, severe at the L3-L4, L4-L5 and L5-S1 levels. Moderate lower lumbar spine facet joint arthropathy.. No vertebral body compression fractures. No suspicious bony lesions. Soft tissues: Overlying bowel gas pattern is normal. No suspicious soft tissue calcifications. Oblique images: No pars defects. IMPRESSION: Multilevel spondylosis. Dictated by: Luis GAMA Interpreted: Odette Lucas MD on 01/16/2019 at 17:38 Approved by: Odette Lucas M.D. on 01/16/2019 at 18:37
== END ==
PROVIDERS: PCP Family Medicine; Visit Provider Family Medicine
DX: M54.5 Low back pain (principal); M16.12 Unilateral primary osteoarthritis, left hip; M47.816 Spondylosis without myelopathy or radiculopathy, lumbar region; M47.817 Spondylosis without myelopathy or radiculopathy, lumbosacral region
CPT/HCPCS: 72110; 73522

== ENCOUNTER 2019-01-21 15:21 | Emergency (ER) | payer OTHER, SELFPAY ==
[2019-01-21 15:23] VITALS: BP 135/80; PULSE 102; RESP 18; TEMP 36.9; O2SAT 96; BMI 24.3
[2019-01-21 16:30] VITALS: BP 109/71; PULSE 79; O2SAT 95
--- NOTE | 2019-01-21 16:48 | ED.SEIZURE ---
HPI - Seizure General Chief Complaint: Seizure Stated Complaint: Possible seizure, no history Time Seen by Provider: 01/21/19 15:22 Source: patient Mode of arrival: EMS History of Present Illness HPI Narrative: 63-year-old gentleman with a history of a steroid dependent COPD, hyperlipidemia coronary artery disease status post STEMI, hypertension and reflux presents with new onset seizure. He states that he has not felt 100% over the last few days but has no specific complaints. No fever cough cold chills, shortness of breath, rashes, myalgia, headache, vision changes or perceptual changes. He drove over to his son's house was talking to his son have been his son noticed that his speech was more gibberish and becoming more unintelligible. He then slumped forward onto a table and had upper and lower extremity seizure-like activity and his son noted that his eyes rolled up to the left and the back of his head. 911 was called. By the time medics arrived patient was no longer having any motor activity and was becoming more alert. Continued to protect his airway. Speaking in full sentences without recollection of events upon arrival in the emergency room. He initially had no recollection at all of the events and is time is progressing he is having more memory return. Postictal he has no headache no other neurologic complaints and states he generally is feeling well Related Data Home Medications Medication Instructions Recorded Confirmed ASPIRIN (#ASPIRIN) 81 mg PO QDAY #0 01/26/11 01/16/19 omeprazole 20 mg tablet,delayed 20 mg PO DAILY 10/11/18 01/16/19 release Previous Rx's Medication Instructions Recorded allopurinol 300 mg tablet 300 mg PO DAILY #90 tab 12/07/17 lisinopril 20 mg tablet 40 mg PO QDAY #180 tab 01/18/18 atorvastatin 80 mg PO HS #90 tab 03/09/18 cyclobenzaprine 10 mg tablet 10 mg PO TID PRN #20 tab 10/11/18 indomethacin 25 mg capsule See Rx Instructions .ROUTE 10/25/18 .COMPLEX #150 cap Allergies Allergy/AdvReac Type Severity Reaction Status Date / Time No Known Drug Allergies Allergy Verified 01/16/19 11:53 Review of Systems Review of Systems ROS Unobtainable: All systems reviewed & are unremarkable except as noted in HPI and below Patient History Medical History CAD (coronary artery disease) (Chronic) GERD (gastroesophageal reflux disease) (Chronic) Gout (Chronic) Hyperlipidemia (Chronic) Hypertension (Chronic) Non-STEMI (non-ST elevated myocardial infarction) (Resolved 06/2009) Osteopenia (Chronic) Steroid-dependent asthma (Chronic) Surgical History Status post arthroscopy (Resolved 2002) Status post cardiac catheterization (Resolved 06/2009) Social History Smoking Status: Never smoker Smoking Status: Never smoker alcohol intake frequency: 0-2 drinks per day Substance Use Type: does not use Exam Narrative Exam Narrative: General: Healthy appearing, in no acute distress. Able to give a complete and coherent history, with retrograde amnesia surrounding the actual event. Well-nourished well-developed HEENT: Moist mucous membranes, normal sclera with reactive pupils. No trauma to his tongue. Neck: No JVD, supple Respiratory: Lungs are clear to auscultation, no wheezing no rales no rhonchi. Full and symmetrical air movement Cardiac: Regular rate and rhythm no murmurs no bruits Abdomen: Soft, mildly tender along the upper epigastrium where he slumped forward onto the table. Good bowel tones, no flank pain Skin: Warm and dry, no rashes Neurologic: Grossly neurologically intact with no obvious asymmetries or abnormalities. He is not hyperreflexic. Extremities: No trauma, well perfused Psych: Cooperative, appropriate insight and affect Initial Vital Signs Initial Vital Signs: Vital Signs Temperature 98.4 F 01/21/19 15:23 Pulse Rate 102 H 01/21/19 15:23 Respiratory Rate 18 01/21/19 15:23 Blood Pressure 135/80 01/21/19 15:23 Pulse Oximetry 96 01/21/19 15:23 Course Orders Ordered: ED Orders 01/21/19 16:57 Complete Blood Count AUTO DIFF Stat Comprehensive Metabolic Panel Stat Magnesium Stat Prolactin Stat Urinalysis Sreen (Dip Only) Stat Urine Drug Screen, Rapid Stat 01/21/19 16:58 CT head/brain wo con Stat 01/21/19 18:22 CT cervical spine wo con Stat Reevaluation(s) Reevaluation #1: All findings are reviewed with patient. He continues to feel relatively well but is now complaining about neck and head pain. On reexamination he does have some bilateral occipital tenderness as well as some tenderness midline in the C3-[address] him in a modified soft collar (is neck is short enough of a hard collar is going to be exceptionally uncomfortable) and will obtain CT scan of his neck. I also working on admission. I am concerned about possibility of seizure, TIA, cardiac syncope. As [facility] does not have Neurology available Dr. Johnson is not willing to accept him. There are no beds available at [facility] or [facility] in [place]. Phone calls were being made to [facility] and telling him currently Time: 18:21 Reevaluation #2: Spoke with Dr. Dorsey, neurology, [facility]. She states that she will be happy to consult on this admission. Beds are available. Will recheck to the hospitalist service to see if this can be a direct admit if they would prefer ago through the emergency department Time: 18:33 Reevaluation #3: Dr Stapleton, admitting Hospitalist [facility] has accepted the patient in direct transfer. He will be transported by BLS. All forms are filled out. Safe for transfer Time: 19:08 Vital Signs Vital signs: Vital Signs - 8 hr 01/21/19 15:23 01/21/19 16:30 Temperature 98.4 F Pulse Rate 102 H 79 Respiratory Rate 18 Blood Pressure 135/80 Blood Pressure [Left Arm] 109/71 Pulse Oximetry 96 95 MDM - Seizure Differential Diagnosis Differential diagnosis: Likely focal seizure, generalized seizure, new onset seizure, epileptic seizure and other (acute arrythmia with syncope) Medical Records Attestation: I reviewed the patient's medical records. Lab Data Attestation: I reviewed the patient's lab results. Result diagrams: 01/21/19 16:57 01/21/19 16:57 Labs: Lab Results 01/21/19 01/21/19 Range/Units 16:57 16:57 WBC 11.1 H (4.5-11.0) X10^3/uL RBC 4.53 (4.5-5.9) X10^6/uL Hgb 15.0 (13.5-17.5) g/dL Hct 44.6 (41-53) % MCV 98.4 (80-100) fL MCH 33.1 (26-34) PG MCHC 33.7 (30-36) % RDW 14.9 H (11.6-14.8) % Plt Count 198 (150-400) X10^3/uL Neut % (Auto) 63.4 (50-75) % Lymph % (Auto) 34.3 (25-40) % Walker % (Auto) 1.6 L (3-14) % Eos % (Auto) 0.1 L (2-4) % Baso % (Auto) 0.6 (0-2) % Neut # (Auto) 7100 H (8181-1649) /uL Lymph # (Auto) 3800 (9053-5251) /uL Walker # (Auto) 200 (0-900) /uL Eos # (Auto) 0 (0-450) /uL Baso # (Auto) 100 (0-100) /uL Sodium 138 (137-145) mmol/L Potassium 4.1 (3.4-5.1) mmol/L Chloride 98 (98-107) mmol/L Carbon Dioxide 14 L (22-32) mmol/L BUN 21 H (9-20) mg/dL Creatinine 1.20 (0.66-1.25) mg/dL Estimated GFR > 60.0 (>60) mL/min BUN/Creatinine Ratio 17.5 (6-22) Glucose 147 H (80-110) mg/dL Calcium 9.8 (8.4-10.2) mg/dL Magnesium 2.0 (1.6-2.3) mg/dL Total Bilirubin 0.8 (0.2-1.3) mg/dL AST 42 (17-59) IU/L ALT 32 (<50) IU/L Alkaline Phosphatase 63 (38-126) U/L Total Protein 8.1 (6.3-8.2) g/dL Albumin 5.0 (3.5-5.0) g/dL Globulin 3.1 (1.7-4.1) g/dL Albumin/Globulin Ratio 1.6 (1.0-2.8) Prolactin 45.7 H (3.7-17.9) ng/mL Point of Care Testing Glucose POC [address] scan - head: Radiologist's impression: IMPRESSION: 1. No CT evidence of acute intracranial pathology. 2. Bilateral ethmoid and maxillary sinusitis with post surgical changes. Dictated by: Juan Ovalles M.D. on 01/21/2019 at 17:34 CT cervical spine: Attestation: I personally reviewed and interpreted this imaging study as follows: Radiologist's impression: IMPRESSION: 1. No acute cervical spine fracture or dislocation. 2. Degenerative disc disease throughout cervical spine with likely degenerative spondylolisthesis at C5-6 through C7-T1 levels. Dictated by: Juan Ovalles M.D. on 01/21/2019 at 18:59 ECG Data Attestation: I personally reviewed and interpreted this ECG as follows: Interpretation: Normal sinus rhythm at a rate of [address] T wave changes No evidence of ischemia Discharge Plan Departure Patient Disposition: [facility] Clinical Impression: New onset seizure Prescriptions: No Action ASPIRIN (#ASPIRIN) 81 mg PO QDAY Qty: 0 RF: 0 allopurinol 300 mg tablet 300 mg PO DAILY Qty: 90 RF: 3 lisinopril 20 mg tablet 40 mg PO QDAY Qty: 180 RF: 3 atorvastatin 80 mg tablet 80 mg PO HS Qty: 90 RF: 3 indomethacin 25 mg capsule See Rx Instructions .ROUTE .COMPLEX Qty: 150 RF: 1 omeprazole 20 mg tablet,delayed release (DR/EC) 20 mg PO DAILY RF: 0 cyclobenzaprine 10 mg tablet 10 mg PO TID PRN (Reason: muscle spasm) Qty: 20 RF: 1 Referrals: Wan Luna MD [Primary Care Provider] -
--- NOTE | 2019-01-21 16:58 | DI.CT.S_ITS ---
PROCEDURE: CT HEAD/BRAIN WO CON INDICATIONS: new onset seizure TECHNIQUE: Noncontrast 4.5 mm thick angled axial sections acquired from the foramen magnum to the vertex, with coronal and sagittal reformats. For radiation dose reduction, the following was used: automated exposure control, adjustment of mA and/or kV according to patient size. COMPARISON: [facility], CT, HEAD WITHOUT CONTRAST, 05/19/2013, 13:02. FINDINGS: Image quality: Excellent. CSF spaces: Basal cisterns are patent. No extra-axial fluid collections. The ventricles are symmetric in size and shape. Brain: No intracranial bleeds or masses. There is cerebral volume loss for age, with resultant ventricular and sulcal prominence. There are periventricular and deep white matter chronic small vessel ischemic changes. There is intracranial internal carotid artery atherosclerosis. Skull and face: Calvarium and visualized facial bones appear intact, without suspicious lesions. Sinuses: Mucosal thickening in bilateral ethmoid and maxillary sinuses are seen with prior surgical procedure involving medial wall of bilateral maxillary sinuses. IMPRESSION: 1. No CT evidence of acute intracranial pathology. 2. Bilateral ethmoid and maxillary sinusitis with post surgical changes. Dictated by: Juan Ovalles M.D. on 01/21/2019 at 17:34 Approved by: Juan Ovalles M.D. on 01/21/2019 at 17:35
[2019-01-21 17:19] LABS: Add Manual Diff / Slide Review NO; Basophils Absolute Auto 100 /uL (0-100); Basophils Percent Auto 0.6 % (0-2); Eosinophils Absolute Auto 0 /uL (0-450); Eosinophils Percent Auto 0.1 % (2-4); Hematocrit 44.6 % (41-53); Lymphocytes Absolute Auto 3800 /uL (1100-4500); Lymphocytes Percent Auto 34.3 % (25-40); Mean Corpuscular HGB Conc 33.7 % (30-36); Mean Corpuscular Hemoglobin 33.1 PG (26-34); Mean Corpuscular Volume 98.4 fL (80-100); Monocytes Absolute Auto 200 /uL (0-900); Monocytes Percent Auto 1.6 % (3-14); Neutrophils Absolute Auto 7100 /uL (1500-7000); Neutrophils Percent Auto 63.4 % (50-75); Platelet Count 198 X10^3/uL (150-400); Red Blood Cell Count 4.53 X10^6/uL (4.5-5.9); Red Cell Distribution Width 14.9 % (11.6-14.8); White Blood Cell Count 11.1 X10^3/uL (4.5-11.0)
[2019-01-21 17:24] LABS: Albumin Globulin Ratio 1.6 (1.0-2.8); Alkaline Phosphatase 63 U/L (38-126); Aspartate Aminotransferase 42 IU/L (17-59); BUN Creatinine Ratio 17.5 (6-22); Bilirubin Total 0.8 mg/dL (0.2-1.3); Blood Urea Nitrogen 21 mg/dL (9-20); Calcium 9.8 mg/dL (8.4-10.2); Carbon Dioxide 14 mmol/L (22-32); Chloride 98 mmol/L (98-107); Estimated Glomerular Filt Rate > 60.0 mL/min (>60); Globulin 3.1 g/dL (1.7-4.1); Glucose 147 mg/dL (80-110); HEMOLYSIS 22 (0-50); Potassium 4.1 mmol/L (3.4-5.1); Sodium 138 mmol/L (137-145); Total Protein 8.1 g/dL (6.3-8.2)
[2019-01-21 17:30] LABS: Alanine Aminotransferase 32 IU/L (<50)
[2019-01-21 17:40] LABS: Prolactin 45.7 ng/mL (3.7-17.9)
--- NOTE | 2019-01-21 18:22 | DI.CT.S_ITS ---
PROCEDURE: CT CERVICAL SPINE WO CON INDICATIONS: Seizure/syncope, fell forward, now neck pain TECHNIQUE: Noncontrast 3 mm thick sections acquired from the skull base to the T4 level. Sagittal and coronal reformats were then constructed. For radiation dose reduction, the following was used: automated exposure control, adjustment of mA and/or kV according to patient size. COMPARISON: None. FINDINGS: Image quality: Excellent. Bones: There is no acute fracture or dislocation. Jaramillo-white retrolisthesis of C5 on C6 and C6 on C7 is seen. Jaramillo-white retrolisthesis of C7 on T1 is also noted. Degenerative endplate changes and decreased intervertebral disc space at C4-5 through C7-T1 levels are seen. There is suggestion of broad-based disc bulge and dorsal disc osteophyte complex formation at C5-6, C6-7 and C7-T1 levels causing mild to moderate central canal stenosis and bilateral neuroforaminal narrowing. Soft tissues: Prevertebral soft tissues are normal in thickness. No paravertebral hematomas. No apical pneumothoraces. IMPRESSION: 1. No acute cervical spine fracture or dislocation. 2. Degenerative disc disease throughout cervical spine with likely degenerative spondylolisthesis at C5-6 through C7-T1 levels. Dictated by: Juan Ovalles M.D. on 01/21/2019 at 18:59 Approved by: Juan Ovalles M.D. on 01/21/2019 at 19:02
[2019-01-21 18:51] VITALS: BP 134/90; PULSE 76; RESP 15; O2SAT 97
[2019-01-21 19:30] VITALS: BP 141/96; PULSE 85; RESP 18; O2SAT 97
[2019-01-21] MEDS: IBUPROFEN 400 MG TABLET PO (19:33)
[2019-01-21] MEDS: ACETAMINOPHEN 325 MG TABLET PO (19:33)
[2019-01-21 19:34] LABS: Appearance Urine UA CLEAR; Bilirubin Urine UA NEGATIVE (NEGATIVE); Color Urine UA YELLOW; Glucose Urine UA NEGATIVE (Negative); Ketones Urine UA NEGATIVE (NEGATIVE); Leukocyte Esterase Urine UA NEGATIVE (NEGATIVE); Nitrite Urine UA NEGATIVE (Negative); Occult Blood Urine UA NEGATIVE (Negative); Protein Urine UA NEGATIVE (Negative); Specific Gravity Urine UA <=1.005 (1.000-1.035); Urobilinogen Urine UA 0.2 E.U./dL (0.2); pH Urine UA 6.5 (4.5-8.0)
[2019-01-21 19:41] LABS: UR Morphine/Opiate cutoff 300 Negative (Negative); Ur Creatinine Normal (Normal); Ur Specific Gravity Normal (Normal); Urine Amphetamines Negative (Negative); Urine Barbiturates Negative (Negative); Urine Benzodiazepines Negative (Negative); Urine Cocaine Negative (Negative); Urine MDMA Negative (Negative); Urine Methadone Negative (Negative); Urine Methamphetamines Negative (Negative); Urine Oxycodone Negative (Negative); Urine Phencyclidine Negative (Negative); Urine Tetrahydrocannabinol Positive (Negative); Urine Tricyclic Antidepressant Negative (Negative); Urine pH Normal (Normal)
[2019-01-21 20:06] VITALS: BP 139/94; PULSE 86; RESP 17; O2SAT 94
== END 2019-01-21 21:00 | disposition short-term general hospital (02) ==
PROVIDERS: Emergency Provider Emergency Medicine; PCP Family Medicine
DX: R56.9 Unspecified convulsions (principal); I10 Essential (primary) hypertension; E78.5 Hyperlipidemia, unspecified
CPT/HCPCS: 36415; 70450; 72125; 80053; 80305; 81003; 82962; 83735; 84146; 85025; 93005; 93010; 99284; 99285

== ENCOUNTER → 2019-11-13 08:02 | Outpatient (CLI) | payer OTHER, SELFPAY ==
[2019-11-13 10:01] LABS: Add Manual Diff / Slide Review NO; Basophils Absolute Auto 100 /uL (0-100); Basophils Percent Auto 0.9 % (0-2); Eosinophils Absolute Auto 200 /uL (0-450); Eosinophils Percent Auto 1.9 % (2-4); Hematocrit 41.6 % (41-53); Hemoglobin 14.2 g/dL (13.5-17.5); Lymphocytes Absolute Auto 2500 /uL (1100-4500); Lymphocytes Percent Auto 29.2 % (25-40); Mean Corpuscular HGB Conc 34.2 % (30-36); Mean Corpuscular Hemoglobin 33.7 PG (26-34); Mean Corpuscular Volume 98.5 fL (80-100); Monocytes Absolute Auto 300 /uL (0-900); Monocytes Percent Auto 3.1 % (3-14); Neutrophils Absolute Auto 5600 /uL (1500-7000); Neutrophils Percent Auto 64.9 % (50-75); Platelet Count 166 X10^3/uL (150-400); Red Blood Cell Count 4.22 X10^6/uL (4.5-5.9); Red Cell Distribution Width 14.4 % (11.6-14.8); White Blood Cell Count 8.7 X10^3/uL (4.5-11.0)
[2019-11-13 10:21] LABS: Alanine Aminotransferase 42 IU/L (<50); Albumin 4.3 g/dL (3.5-5.0); Albumin Globulin Ratio 1.6 (1.0-2.8); Alkaline Phosphatase 51 U/L (38-126); Aspartate Aminotransferase 34 IU/L (17-59); BUN Creatinine Ratio 22.2 (6-22); Bilirubin Total 0.7 mg/dL (0.2-1.3); Blood Urea Nitrogen 24 mg/dL (9-20); Calcium 9.3 mg/dL (8.4-10.2); Carbon Dioxide 31 mmol/L (22-32); Chloride 100 mmol/L (98-107); Cholesterol 238 mg/dL (140-199); Estimated Glomerular Filt Rate > 60.0 mL/min (>60); Globulin 2.7 g/dL (1.7-4.1); Glucose 85 mg/dL (80-110); HDL Cholesterol 108 mg/dL (40-60); HEMOLYSIS < 15 (0-50); LDL Cholesterol Calculated 100 mg/dL (<100); Potassium 4.5 mmol/L (3.4-5.1); Sodium 137 mmol/L (137-145); Triglycerides 150 mg/dL (35-150)
[2019-11-13 10:49] LABS: Prostate Specific Antigen Scrn 0.616 ng/mL (0.1-4.0)
== END ==
PROVIDERS: PCP Family Medicine; Referring Provider Family Medicine; Visit Provider Family Medicine
DX: I10 Essential (primary) hypertension (principal)
CPT/HCPCS: 36415; 80053; 80061; 85025; G0103

== ENCOUNTER → 2019-11-17 11:01 | Outpatient (CLI) | payer OTHER, SELFPAY ==
--- NOTE | 2019-11-17 11:02 | DI.MRI.S_ITS ---
PROCEDURE: MR LUMBAR SPINE WO CON INDICATIONS: chronic lumbar spine pain x1 year TECHNIQUE: Noncontrast sagittal T1 spin echo and T2 fast echo, sagittal STIR, axial T1 and T2 fast spin echo through the lumbar spine. In cases with scoliosis, additional coronal T2 fast spin echo may be performed. COMPARISON: [facility], CR, XR LUMBAR SPINE MIN 4V, 01/16/2019, 12:15. FINDINGS: Image quality: Excellent. Alignment and Curvature: There is right lateral subluxation of L3 over L4. Convex left curvature of the lower lumbar spine is noted. Bone Marrow: Reactive endplate changes noted adjacent to the L2-L3, L3-L4, L4-L5 and L5-S1 discs. No acute vertebral body compression fractures. Spinal Cord: Conus medullaris terminates at the L1 level. Visualized cord demonstrates normal signal and size. Paraspinous Soft Tissues: No paravertebral masses. L1-L2: Normal appearance. L2-L3: Loss of disc signal and height. Moderate, diffuse disc bulge. Mild bilateral facet hypertrophy. Mild ligamentum flavum hypertrophy. Moderate narrowing of the central canal. Mild right and moderate left neural foraminal narrowing. No neural compression. L3-L4: Loss of disc signal and height. Moderate, diffuse disc bulge. Mild bilateral facet hypertrophy. Mild ligamentum flavum hypertrophy. Moderate to severe narrowing of the central canal with crowding of the nerve roots of the cauda equina. Moderate to severe right and moderate left neural foraminal narrowing with slight compression of the exiting right L3 nerve root. L4-L5: Loss of disc signal and height. Mild to moderate diffuse disc bulge. Mild bilateral facet hypertrophy. Moderate narrowing of the central canal. Severe right and moderate left neural foraminal narrowing with marked compression of the exiting right L4 nerve root. L5-S1: Loss of disc signal and height. Mild to moderate diffuse disc bulge. Mild bilateral facet hypertrophy. Epidural lipomatosis. Severe narrowing of the central canal predominantly related to epidural lipomatosis. Moderate right and severe left neural foraminal narrowing with marked compression of the exiting left L5 nerve root. IMPRESSION: 1. Multilevel degenerative disc disease. 2. Multilevel facet arthropathy. 3. Severe L5-S1 central canal narrowing. Moderate to severe L3-L4 central canal narrowing. Four. Severe right L4-L5 neural foraminal narrowing with marked compression exiting right L4 nerve root. Severe left L5-S1 neural foraminal narrowing with marked compression of the exiting left L5 nerve root. Moderate to severe right L3-L4 neural foraminal narrowing with slight compression of the exiting right L3 nerve root Dictated by: Corina Arboleda MD, PhD on 11/19/2019 at 8:49 Approved by: Corina Arboleda MD, PhD on 11/19/2019 at 8:55
--- NOTE | 2019-11-17 11:02 | DI.MRI.S_ITS ---
PROCEDURE: MR SHOULDER RT WO CON INDICATIONS: Pain TECHNIQUE: Noncontrast oblique coronal T2 fast spin echo with fat saturation, oblique sagittal T1 spin echo and T2 fast spin echo with fat saturation, axial T1 spin echo and T2 fast spin echo with fat saturation through the shoulder. COMPARISON: [facility], MR, MR SHOULDER RT WO CON, 08/05/2018, 8:46. FINDINGS: Image quality: Excellent. Rotator cuff: Tendinosis and low to moderate grade articular and bursal surface partial thickness tear involving distal supraspinatus at its insertion on the humeral head is seen extending to musculotendinous junction. Distal infraspinatus tendinosis and low-grade articular surface partial-thickness tear at its insertion on the humeral head is also seen. Distal subscapularis tendinosis and low-grade intrasubstance partial-thickness tear is noted. No gross full-thickness rotator cuff tendon rupture. Sagittal images demonstrate moderate supraspinatus muscle atrophy. Bones and bursae: No bone marrow contusions or fractures. Moderate acromioclavicular joint osteoarthritic changes are seen with downward osteophyte formation depressing the musculotendinous junction of supraspinatus. Small to moderate amount of subacromial subdeltoid bursal fluid is seen. Capsule and soft tissues: In the absence of intra-articular contrast, there is suggestion of anterior-inferior labral tear at 5 to 6 o'clock position. The glenohumeral ligaments appear intact. The long head of the biceps tendinosis is noted. The rotator interval appears normal, without fibrosis. The coracohumeral ligament is normal in thickness. IMPRESSION: 1. Tendinosis and low to moderate grade articular and bursal surface partial thickness tear involving distal supraspinatus extending to musculotendinous junction. Moderate supraspinatus muscle atrophy. 2. Tendinosis and low-grade articular surface partial-thickness tear involving distal infraspinatus. Tendinosis and low-grade intrasubstance partial-thickness tear involving distal subscapularis. 3. Moderate acromioclavicular joint osteoarthritis. Small to moderate amount of subacromial subdeltoid bursal fluid. 4. Suggestion of anterior-inferior labral tear at 5 to 6 o'clock position. 5. Proximal intra-articular portion of long head of biceps tendinosis. Dictated by: Juan Ovalles M.D. on 11/19/2019 at 8:22 Approved by: Juan Ovalles M.D. on 11/19/2019 at 8:33
== END ==
PROVIDERS: PCP Family Medicine; Referring Provider Family Medicine; Visit Provider Family Medicine
DX: M25.511 Pain in right shoulder (principal); M75.111 Incomplete rotator cuff tear or rupture of right shoulder, not specified as traumatic; M19.011 Primary osteoarthritis, right shoulder; M54.5 Low back pain; M51.36 Other intervertebral disc degeneration, lumbar region; M51.37 Other intervertebral disc degeneration, lumbosacral region; M47.816 Spondylosis without myelopathy or radiculopathy, lumbar region; M47.817 Spondylosis without myelopathy or radiculopathy, lumbosacral region; M48.061 Spinal stenosis, lumbar region without neurogenic claudication; M48.07 Spinal stenosis, lumbosacral region; G89.29 Other chronic pain
CPT/HCPCS: 72148; 73221

== ENCOUNTER → 2020-05-20 07:07 | Outpatient (CLI) | payer OTHER, SELFPAY ==
[2020-05-20 08:43] LABS: Alanine Aminotransferase 27 IU/L (<50); Albumin 4.1 g/dL (3.5-5.0); Albumin Globulin Ratio 1.6 (1.0-2.8); Alkaline Phosphatase 55 U/L (38-126); Aspartate Aminotransferase 28 IU/L (17-59); BUN Creatinine Ratio 18.8 (6-22); Bilirubin Total 0.5 mg/dL (0.2-1.3); Blood Urea Nitrogen 19 mg/dL (9-20); Calcium 9.8 mg/dL (8.4-10.2); Carbon Dioxide 28 mmol/L (22-32); Chloride 102 mmol/L (98-107); Cholesterol 237 mg/dL (140-199); Estimated Glomerular Filt Rate > 60.0 mL/min (>60); Globulin 2.6 g/dL (1.7-4.1); Glucose 81 mg/dL (80-110); HDL Cholesterol 99 mg/dL (40-60); HEMOLYSIS < 15 (0-50); LDL Cholesterol Calculated 106 mg/dL (<100); Potassium 4.4 mmol/L (3.4-5.1); Sodium 139 mmol/L (137-145); Total Protein 6.7 g/dL (6.3-8.2); Triglycerides 160 mg/dL (35-150)
== END ==
PROVIDERS: PCP Internal Medicine; Referring Provider Internal Medicine; Visit Provider Internal Medicine
DX: E78.2 Mixed hyperlipidemia (principal); I10 Essential (primary) hypertension; I25.10 Atherosclerotic heart disease of native coronary artery without angina pectoris
CPT/HCPCS: 36415; 80053; 80061

== ENCOUNTER → 2020-12-22 08:37 | Outpatient (CLI) | payer OTHER, SELFPAY ==
[2020-12-22 09:28] LABS: Alanine Aminotransferase 25 IU/L (<50); Albumin 4.2 g/dL (3.5-5.0); Albumin Globulin Ratio 1.6 (1.0-2.8); Alkaline Phosphatase 58 U/L (38-126); Aspartate Aminotransferase 27 IU/L (17-59); BUN Creatinine Ratio 21.1 (6-22); Bilirubin Total 0.6 mg/dL (0.2-1.3); Blood Urea Nitrogen 20 mg/dL (9-20); Calcium 9.4 mg/dL (8.4-10.2); Carbon Dioxide 28 mmol/L (22-32); Chloride 100 mmol/L (98-107); Cholesterol 217 mg/dL (140-199); Estimated Glomerular Filt Rate > 60.0 mL/min (>60); Globulin 2.7 g/dL (1.7-4.1); Glucose 104 mg/dL (80-110); HDL Cholesterol 103 mg/dL (40-60); HEMOLYSIS < 15 (0-50); LDL Cholesterol Calculated 88 mg/dL (<100); Potassium 4.9 mmol/L (3.4-5.1); Sodium 138 mmol/L (137-145); Total Protein 6.9 g/dL (6.3-8.2); Triglycerides 131 mg/dL (35-150)
[2020-12-22 09:53] LABS: Prostate Specific Antigen Scrn 0.867 ng/mL (0.1-4.0)
== END ==
PROVIDERS: PCP Internal Medicine; Referring Provider Internal Medicine; Visit Provider Internal Medicine
DX: E78.2 Mixed hyperlipidemia (principal); I25.10 Atherosclerotic heart disease of native coronary artery without angina pectoris; I10 Essential (primary) hypertension; Z12.5 Encounter for screening for malignant neoplasm of prostate
CPT/HCPCS: 36415; 80053; 80061; G0103

== ENCOUNTER → 2020-12-23 09:50 | Outpatient (CLI) | payer OTHER, SELFPAY ==
--- NOTE | 2020-12-23 | DI.RAD.S_ITS ---
PROCEDURE: XR CHEST 2V INDICATIONS: ASTHMA/STEROID USE/PERSISTANT COUGH TECHNIQUE: 2 views of the chest were acquired. COMPARISON: [facility], , CHEST 2 VIEW, 10/25/2016, 13:53. FINDINGS: Surgical changes and devices: None. Lungs and pleura: Lungs are clear. No pleural effusions or pneumothorax. Mediastinum: Mediastinal contours are normal. Heart size is normal. Bones and chest wall: No suspicious bony abnormalities. Soft tissues appear unremarkable. IMPRESSION: No acute cardiopulmonary findings Approved by: Nael Blount M.D. on 12/23/2020 at 11:33
== END ==
PROVIDERS: PCP Internal Medicine; Referring Provider Otolaryngology Facial Plastic Surgery; Visit Provider Otolaryngology Facial Plastic Surgery
DX: J45.50 Severe persistent asthma, uncomplicated (principal); Z79.52 Long term (current) use of systemic steroids
CPT/HCPCS: 71046

== ENCOUNTER → 2021-02-12 13:22 | Outpatient (CLI) | payer OTHER, SELFPAY ==
--- NOTE | 2021-02-12 | DI.CT.S_ITS ---
PROCEDURE: CT LUMBAR SPINE WO CON INDICATIONS: Spinal stenosis, lumbar region with neurogenic claudication TECHNIQUE: Noncontrast 3 mm thick sections acquired from the T12 level to the sacrum. Sagittal and coronal reformats were constructed. For radiation dose reduction, the following was used: automated exposure control. COMPARISON: [facility], MR, MR LUMBAR SPINE WO CON, 11/17/2019, 11:04. FINDINGS: Image quality: Excellent. Bones: There is normal bony alignment. No acute vertebral body compression fractures. No suspicious lytic or blastic bony lesions. No pars defects. Mild physiologic wedging of T12 and L1, unchanged. Convex right thoracolumbar scoliosis present. T12-L1: Unremarkable L1-L2: Unremarkable L2-L3: Disc space narrowing with vacuum disc phenomena and endplate sclerosis noted. Circumferential disc bulge with marginal osteophyte and hypertrophic facet joints combined result in moderate central stenosis. Moderate left and mild right foraminal stenosis. L3-L4: Disc space narrowing, degenerative endplate changes and circumferential disc bulge combines with hypertrophic facet joints to result in moderate central stenosis air effacement of both lateral recesses. There is severe right and left foraminal stenosis L4-L5: Disc space narrowing, degenerative endplate changes and circumferential disc bulge combined with hypertrophic facet joints result in moderate central stenosis. Ventral epidural lipomatosis noted as well resulting in effacement of the right lateral recess. Severe right and mild left foraminal stenosis L5-S1: A disc space narrowing, degenerative endplate changes and circumferential disc bulge combined with hypertrophic facet joints. With epidural lipomatosis present as well. There is effacement of the right lateral recess and mild central stenosis. Severe left and moderate right foraminal stenosis Soft tissues: No retroperitoneal masses or hematomas. Visualized aorta is normal in caliber. IMPRESSION: 1. Multilevel degenerative disc disease and arthropathy results in varying degrees of central and foraminal stenosis including moderate central stenosis at L4-5 and severe foraminal stenosis and at L4-5 and L5-S1 as above Approved by: Nael Blount M.D. on 02/12/2021 at 16:39
== END ==
PROVIDERS: PCP Internal Medicine; Referring Provider Orthopaedic Surgery Orthopaedic Surgery of the Spine; Visit Provider Orthopaedic Surgery Orthopaedic Surgery of the Spine
DX: M48.062 Spinal stenosis, lumbar region with neurogenic claudication (principal); M48.07 Spinal stenosis, lumbosacral region; M51.36 Other intervertebral disc degeneration, lumbar region; M51.37 Other intervertebral disc degeneration, lumbosacral region; M47.816 Spondylosis without myelopathy or radiculopathy, lumbar region; M47.817 Spondylosis without myelopathy or radiculopathy, lumbosacral region
CPT/HCPCS: 72131

== ENCOUNTER → 2021-04-17 07:26 | Outpatient (CLI) | payer OTHER, MEDICARE, SELFPAY ==
[2021-04-17 08:16] LABS: Add Manual Diff / Slide Review NO; Basophils Absolute Auto 300 /uL (0-100); Basophils Percent Auto 2.6 % (0-2); Eosinophils Absolute Auto 100 /uL (0-450); Eosinophils Percent Auto 0.9 % (2-4); Hematocrit 39.7 % (41-53); Hemoglobin 13.2 g/dL (13.5-17.5); Lymphocytes Absolute Auto 4200 /uL (1100-4500); Lymphocytes Percent Auto 34.7 % (25-40); Mean Corpuscular HGB Conc 33.1 % (30-36); Mean Corpuscular Hemoglobin 31.2 PG (26-34); Mean Corpuscular Volume 94.3 fL (80-100); Monocytes Absolute Auto 500 /uL (0-900); Monocytes Percent Auto 3.9 % (3-14); Neutrophils Absolute Auto 7000 /uL (1500-7000); Neutrophils Percent Auto 57.9 % (50-75); Platelet Count 187 X10^3/uL (150-400); Red Blood Cell Count 4.21 X10^6/uL (4.5-5.9); Red Cell Distribution Width 15.1 % (11.6-14.8)
[2021-04-17 08:33] LABS: BUN Creatinine Ratio 19.5 (6-22); Blood Urea Nitrogen 23 mg/dL (9-20); Calcium 9.4 mg/dL (8.4-10.2); Carbon Dioxide 32 mmol/L (22-32); Chloride 104 mmol/L (98-107); Estimated Glomerular Filt Rate > 60.0 mL/min (>60); Glucose 85 mg/dL (80-110); HEMOLYSIS < 15 (0-50); Potassium 3.8 mmol/L (3.4-5.1); Sodium 139 mmol/L (137-145)
== END ==
PROVIDERS: PCP Internal Medicine; Referring Provider Orthopaedic Surgery Orthopaedic Surgery of the Spine; Visit Provider Orthopaedic Surgery Orthopaedic Surgery of the Spine
DX: Z01.812 Encounter for preprocedural laboratory examination (principal); Z01.818 Encounter for other preprocedural examination
CPT/HCPCS: 36415; 80048; 85025; 93005; 93010

== ENCOUNTER → 2021-05-18 09:52 | Outpatient (CLI) | payer OTHER, MEDICARE, SELFPAY ==
[2021-05-18 12:42] LABS: COVID19 -Nasal RAPID Negative (Negative)
== END ==
PROVIDERS: PCP Internal Medicine; Visit Provider Family Medicine Sleep Medicine
DX: Z20.822 Contact with and (suspected) exposure to COVID-19 (principal)
CPT/HCPCS: 87635; C9803

== ENCOUNTER 2021-05-21 15:02 | Observation (INO) | payer OTHER, MEDICARE, SELFPAY ==
[2021-05-13 10:44] VITALS: BMI 25.8
[2021-05-20] VITALS (12 sets, daily range): BP systolic 77–146; BP diastolic 52–97; PULSE 70–96; RESP 12–16; TEMP 36.3–37.4; O2SAT 94–99; BMI 25.8
--- NOTE | 2021-05-20 | DI.RAD.S_ITS ---
PROCEDURE: XR LUMBAR SPINE 2-3V INDICATIONS: L2-S1 TLIF TECHNIQUE: 3 views of the lumbar spine were acquired. COMPARISON: [facility], , XR LUMBAR SPINE MIN 4V, 01/16/2019, 12:15. FINDINGS: Intraoperative images demonstrate lumbosacral fusion hardware as well as interbody devices. IMPRESSION: Postsurgical sequelae. Dictated by: Adeline Garcia M.D. on 05/20/2021 at 15:50 Approved by: Adeline Garcia M.D. on 05/20/2021 at 15:51
[2021-05-20] MEDS: LACTATED RINGERS 1,000 ML 42 ML IV ×3 (07:15→13:39)
[2021-05-20] MEDS: ACETAMINOPHEN 325 MG TABLET 975 MG PO (07:16)
--- NOTE | 2021-05-20 07:44 | PM.PREOP ---
Pre-operative Note COVID-19 COVID-19 status: Negative Result date/Date tested (Pos, Neg/Pending): 05/19/21 Criteria for continued procedure: Expected advancement of disease process, Possibility delay results in more complex future surgery or treatment, Increased loss of function, Continuing or worsening of significant or severe pain, Deterioration of the patient's condition or overall health and Delay expected to result in less-positive ultimate med/surg outcome Interval Note History & Physical reviewed/Exam performed by Physician: Yes Changes to H&P: No
[2021-05-20] MEDS: CEFAZOLIN 2 GM/20 ML SYRINGE IV ×3 (08:40→20:22)
--- NOTE | 2021-05-20 09:05 | SUR.OPER ---
Prone on spine table, head in foam head support, padded chest and pelvic supports, gel pad at knees, lower legs supported by pillows; nipples, genitalia and toes free of pressure, arms secured on foam padded arm boards at <90 degrees abduction. Tape over blanket at thigh secured to table.
[2021-05-20] MEDS: BUPIVACAINE LIPOSOME 266 MG/20 ML VIAL INJ (09:20)
[2021-05-20] MEDS: BUPIVACAINE 0.25% (PF) 30 ML, EPINEPHrine 0.3 MG INJ (09:20)
--- NOTE | 2021-05-20 15:27 | P.OP_ITS ---
Operative Date/Time/Diagnoses Date of procedure: 05/20/21 Time of procedure: 08:45 Pre-op diagnosis: 1. Lumbar scoliosis 2. L2-3, L3-4, L4-5, L5-S1 spinal stenosis with radiculopathy 3. L2-3, L3-4, L4-5, L5-S1 spondylosis with radiculopathy Post-op diagnosis: same Procedure & Clinicians Procedure: 1. L2-3, L3-4, L4-5, L5-S1 Postero-lateral and posterior interbody fusion 2. L2-3, L3-4, L4-5, L5-S1 interbody cage placement. 3. L2-3, L3-4, L4-5, L5-S1 decompressive laminectomy with bilateral facetecomies 4. L2-3, L3-4, L4-5, L5-S1 Posterior segmental instrumentation 5. [place] of bone marrow from iliac crest 6. Utilization of microsurgical technique and operating microscope 7. Utilization of [employer] robotic navigation Same procedure as scheduled: Yes Indications: Patient has been having chronic back pain and worsening lumbar radiculopathy. Patient has been having progressive worsening back pain and leg pain with difficulty ambulating. Patient failed multiple conservative management with worsening pain weakness and numbness in his lower extremity. Patient has been having difficulty performing activity of daily living. After discussing risks benefits of treatment options, patient elected proceed with surgery. Surgeon: Guru Flores Global Manager: Angelica Negrete Click Yes if Unassisted: No Anesthesia Type: General Operative Notes Closure Type: primary Specimen(s): none sent Prosthetic devices, grafts, tissues, transplants, or devices: Globus CREO MIS screws, Rise cages Estimated Blood Loss (mL): 200 Blood products transfused: none Procedure in detail: Patient was seen in the preoperative area. Risks and benefits of the surgery was discussed with the patient. Informed consent was obtained from the patient and placed in the chart. Surgical site was marked. Patient was taken to the operative room. General anesthesia was administered. Prophylactic antibiotic was given to the patient less than 30 min before the incision was made. Patient was placed into a prone position on the Hira table. Patient's back was then prepped and draped in the sterile fashion. Time-out was performed at this time. After patient was prepped and draped, patient's PSIS was palpated and marked bilaterally. Small 1 cm incision was made over the PSIS for placement of the reference probes. Two trocar was placed into the PSIS 1 on each side. The reference probe was attached to the trocar of the reference apparatus. At this time the C-arm imaging was used to confirm AP and lateral of L2-3, L3-4, L4-L5, L5-S1 vertebrae and merged the C-arm imaging using the [employer] robotic navigation system with the CT of the lumbar spine. After successful merging was completed and confirmed, skin marker was used to josue out the skin incision using the [employer] robotic arm. Bilateral incision was made at this time. Pre templated trajectory was used and guided using the [employer] robotic navigation system for bilateral L2, L3, L4, L5, S1 pedicle screw placement. This was done by using the robotic arm to guide the high-speed bur to make a cortical entry point. Next a drill was placed also using the robotic arm and guided using the navigation system drilling partially through bilateral L2, L3, L4, L5 and S1 pedicles. Next L2, L3, L4, L5, S1 pedicle screws it was pre templated and measured was placed onto the power team cdl driver and inserted into the pedicles bilaterally. After all 8 screws were placed C-arm imaging was taken of both AP and lateral to confirm the placement. Excellent placement of the screws were confirmed and a matched precisely with the pre planned screw placement using the navigation system. The pedicle screws were put in and the serpentine fashion by placing alternating screws from left and right from cephalad toward the caudal direction. Right L4 screw was found to be losing purchase after decompression due to the size of the small pedicle and scant amount of decompression required to decompress the neural foramen and central canal. Decision was made to remove the right L4 pedicle screw since it did not have adequate purchase. MARs retractor was inserted using [employer] guidence. Globus MARS retractors was placed inside the incision and docked onto the L2, L3, L4 and L5 lamina. Using microsurgical technique and operating microscope, a L2, L3, L4, L5 laminectomy and L2-3, L3-4, L4-5, L5-S1 facetectomy was performed using a [employer] rongeur. Patient was found have severe lateral recess and neural foramen stenosis which was fully decompressed after the laminectomy facetectomy. More than 75% of the facets were removed during the process of decompression rendering L2, L3-4, L4-5, L5-S1 level grossly unstable and required a fusion procedure at the same time. The disc space at L2, L3-4, L4-5, L5-S1 was identified, and a total diskectomy was performed at L2-3, L3-4, L4-5, L5-S1 level. The endplates were decorticated using a rasp and shaver. The total diskectomy and decortication was performed at L2-3, L3-4, L4-5, L5-S1 level in order to to accomplish a L2-3, L3-4, L4-5, L5-S1 fusion. The local bone from the laminectomy and facetectomy was saved for local bone grafting. After the total diskectomy and decortication was completed, Trifecta bone graft material was combined with local bone that was harvested earlier. L2-3 L3-4 decompression and disc preparation was performed from the left side. L4-5 L5-S1 decompression and disc preparation was performed from the right side. Both using globus MARs retractor. At this time, a separate skin is incision was made over the iliac crest. A Jamshidi needle was inserted into the iliac crest through a separate skin incision. 5 cc of bone marrow aspiration was obtained through the separate skin incision using a Jamshidi needle from the iliac crest. The bone marrow aspiration was combined with local bone and the Trifecta bone grafting material. The bone grafting material was placed into the L2-3, L3-4, L4-5, L5-S1 interbody space along with a expandable cage. The cage was expanded to its maximum height using the torque limiting screwdriver. The disc preparation as well as the cage insertion were also performed under navigation guidance. After the cage was placed, AP and lateral C-arm imaging was taken to confirm placement of the cage and excellent position was confirmed. Globus MARS retractor was inserted and docked onto the L2-3, L3-4, L4-5, L5-S1 posterolateral gutter on the right side. Using the power drill, posterior- lateral decortication was performed at L2-3, L3-4, L4-5, L5-S1 level until bleeding cortical bone was identified. The remaining bone grafting material was placed into the L2-3, L3-4, L4-5, L5-S1 posterior lateral gutter he order to accomplish posterolateral fusion at the L2-3, L3-4, L4-5, L5-S1 level. At this time the tulips were attached to the L2, L3, L4, L5, S1 pedicle screw shanks. After measuring the length of the rods, they were inserted into the tulips of the pedicle screws and locked in place using locking caps and torque limiting screwdriver bilaterally. Total 6 caps and 2 titanium rods was used in order to complete the posterior instrumentation construct. After all the hardware was placed, and confirmed with AP and lateral C-arm imaging, the wound was then irrigated with sterile normal saline and packed with Ray-João gauze for 3 min to accomplish hemostasis. After the gauze was removed the deep fascia was closed with #1 Vicryl suture. The subcutaneous layer was closed with 2-0 Vicryl. The skin was closed with skin rolo. Patient tolerated the procedure well. There were no complications. Neuro monitoring system was used to monitor patient's neurologic status throughout entire procedure. There was no disturbance of the neural monitoring signals throughout the case. Complications: none Post-operative Condition: stable Disposition: PACU Plan for aftercare: Admit to inpatient hospital
[2021-05-20] MEDS: HYDROMORPHONE 2 MG INJ IV (16:29)
[2021-05-20] MEDS: hydrOXYzine 50 MG/ML INJ IM (16:34)
[2021-05-20] MEDS: OXYCODONE IR 5 MG TABLET PO (16:46)
[2021-05-20] MEDS: HYDROMORPHONE 0.5 MG INJ IV ×2 (17:40→22:13)
[2021-05-20] MEDS: SODIUM CHLORIDE 0.9% 1,000 ML 100 ML IV (17:40)
[2021-05-20] MEDS: OXYCODONE IR 5 MG TABLET 10 MG PO ×2 (18:02→21:07)
--- NOTE | 2021-05-20 18:12 | PC.NURSE ---
1740: Pt arrived to unit via stretcher from PACU. Dressing CDI to mid/lower back, no drainage noted. Mccullough intact and draining clear yellow urine. Pt c/o 08/16 mid/lower back pain, medicated with PRNs as ordered. VSS. Oriented pt to room and unit procedures, pt offers no questions or concerns at this time. Bed locked and in low position with call light in reach.
[2021-05-20] MEDS: HYDROCORTISONE 100 MG/2 ML VIAL 25 MG IV ×2 (20:21→22:13)
[2021-05-20] MEDS: SENNOSIDES 8.6 MG TABLET 17.2 MG PO (20:21)
[2021-05-20] MEDS: DOCUSATE 100 MG CAPSULE PO (20:22)
[2021-05-20] MEDS: ATORVASTATIN 20 MG TABLET 80 MG PO (20:22)
[2021-05-20] MEDS: ACETAMINOPHEN 325 MG TABLET 650 MG PO (21:07)
[2021-05-21 01:00] VITALS: BP 105/57; PULSE 72; RESP 16; TEMP 37.5; O2SAT 97
[2021-05-21] MEDS: SODIUM CHLORIDE 0.9% 1,000 ML 100 ML IV (03:21)
[2021-05-21] MEDS: hydrOXYzine pamoate 25 MG CAPSULE PO (03:22)
[2021-05-21] MEDS: OXYCODONE IR 5 MG TABLET 10 MG PO ×5 (03:22→23:08)
[2021-05-21 04:29] LABS: Hematocrit 32.7 % (41-53); Hemoglobin 11.2 g/dL (13.5-17.5)
[2021-05-21] MEDS: CEFAZOLIN 2 GM/20 ML SYRINGE IV (05:11)
[2021-05-21 05:26] VITALS: BP 116/72; PULSE 74; RESP 16; TEMP 37.2; O2SAT 96
[2021-05-21] MEDS: PANTOPRAZOLE DR 20 MG TABLET PO (06:18)
--- NOTE | 2021-05-21 06:43 | PC.NURSE ---
Shift Note-Patient has been drowsy but oriented x3. Drsg on back intact with moderate bloody drainage, reenforced, log rolls, reminded not to twist at waist. Tylenol given for Temp 99.4, placed on 2L NC while asleep for SpO2 briefly dipping down to 84%. Medicated with oxycodone, Vistaril, and Dilaudid for back pain.
[2021-05-21 07:44] VITALS: BP 121/75; PULSE 85; RESP 15; TEMP 36.6; O2SAT 97
--- NOTE | 2021-05-21 07:51 | PM.PNPO.1 ---
Subjective Subjective Date Patient Seen: 05/21/21 Time Patient Seen: 07:51 Interval history: Patient's pain is moderate. Patient states he is tired. Denies fever or chills. No nausea vomiting. Exam Vital Signs (past 8 hours): - 05/21/21 01:00 05/21/21 05:26 05/21/21 07:44 Temperature 99.5 F 99.0 F 97.8 F Pulse Rate 72 74 85 Respiratory Rate 16 16 15 Blood Pressure 105/57 L 116/72 121/75 Pulse Oximetry 97 96 97 Oxygen Delivery Method Room Air Oxygen Flow Rate 2 Narrative Exam Narrative: 66-year-old resting comfortably in bed in no apparent distress. Motor functions intact bilateral lower extremities. Sensation grossly intact to light touch bilateral lower extremities. Const General: cooperative Nutritional Appearance: average body habitus Orientation: alert Resp Effort & Inspection: normal respiratory effort and able to speak in complete sentences Objective Labs Result Diagrams: 05/21/21 04:05 Labs: Laboratory Results - last 24 hr 05/21/21 04:05 Hgb 11.2 L Hct 32.7 L PFSH Medical History BPH w urinary obs/LUTS CAD (coronary artery disease) Cerebrovascular accident (CVA) (05/29/13) Chronic back pain Chronic rhinosinusitis Complex partial seizure disorder Easy bruisability Enlarged prostate Essential hypertension (06/01/16) GERD (gastroesophageal reflux disease) Gout Gout, chronic (01/26/11) HTN (hypertension) Mixed hyperlipidemia (06/23/16) Non-STEMI (non-ST elevated myocardial infarction) (06/2009) Osteopenia Steroid-dependent asthma Unspecified asthma (01/26/11) Surgical History Hx of LASIK Hx of sinus surgery S/P shoulder surgery (02/07/20) Status post arthroscopy (2002) Status post cardiac catheterization (06/2009) Social History household members: spouse Smoking Status: Never smoker alcohol intake: current Assessment & Plan Post-op Postoperative Procedures: Procedures Operation Date: 05/20/21 07:45 Actual Procedure Side Surgeon p L2-3, L3-4, L4-5, L5-S1 TLIF w. posterior instrumentation-Robot Guru Flores MD Postoperative day: 1 Postoperative status: doing well Postoperative status narrative: Patient progressing as expected Postoperative plan narrative: Mobilize with physical therapy Limit bending, twisting, lifting Multimodal pain management Disposition home 1-2 days Quality VTE Deep Vein Thrombosis/Pulmonary Embolism Present on Admission: No
[2021-05-21] MEDS: DOCUSATE 100 MG CAPSULE PO ×2 (08:02→22:00)
[2021-05-21] MEDS: HYDROMORPHONE 0.5 MG INJ IV ×3 (08:02→13:45)
[2021-05-21] MEDS: predniSONE 5 MG TABLET 10 MG PO (09:52)
[2021-05-21] MEDS: levETIRAcetam 250 MG TABLET 500 MG PO (09:52)
[2021-05-21] MEDS: lisinopriL 20 MG TABLET 40 MG PO (09:52)
[2021-05-21] MEDS: allopurinoL 300 MG TABLET PO (09:52)
--- NOTE | 2021-05-21 10:53 | OT.IP.EVAL ---
Current Diagnoses Other secondary scoliosis, lumbar region (05/20/21) Spondylolisthesis, site unspecified (05/20/21) Spinal stenosis, lumbar region with neurogenic claudication (05/20/21) Surgery Performed Operation Date: 05/20/21 07:45 Actual Procedures p L2-3, L3-4, L4-5, L5-S1 TLIF w. posterior instrumentation-Robot - Guru Flores MD Past Medical History (Last Reviewed 05/21/21 @ 07:52 by Umair Layton PA-C) BPH w urinary obs/LUTS CAD (coronary artery disease) Cerebrovascular accident (CVA) (05/29/13) Chronic back pain Chronic rhinosinusitis Complex partial seizure disorder Easy bruisability Enlarged prostate Essential hypertension (06/01/16) GERD (gastroesophageal reflux disease) Gout Gout, chronic (01/26/11) HTN (hypertension) Hx of LASIK Hx of sinus surgery Mixed hyperlipidemia (06/23/16) Non-STEMI (non-ST elevated myocardial infarction) (06/2009) Osteopenia S/P shoulder surgery (02/07/20) Steroid-dependent asthma Unspecified asthma (01/26/11) Surgical History (Last Reviewed 05/21/21 @ 07:52 by Umair Layton PA-C) Hx of LASIK Hx of sinus surgery S/P shoulder surgery (02/07/20) Status post arthroscopy (2002) Status post cardiac catheterization (06/2009) Occupational Therapy Inpatient Evaluation/Re-Eval M1 PT/OT-IP Prior Functional Status Start: 05/21/21 08:28 Freq: NEEDED Status: Active Protocol: Document 05/21/21 13:32 [facility] (Rec: 05/21/21 13:48 [facility] [id number]) Medical Review Prior Functional Status Medical History Reviewed Yes Communication Pt is able to make his needs known. Mobility and Gait Pt states he holds on to furniture in the house. He uses a cane to get to the car. Activities of Daily Living and IADL's Pt states needing increased time to do ADl needs and having to do IADl needs due to his pain. Prior Functional Level (Other details) PMH includes NSTEMI, HTN, and gout. Social History Household Members spouse Living Arrangements House Number of Floors (Floors) One Floor Number of Stairs To Enter/Railing? 1 platform ANGELLA with no rail Home Environment High Toilet,Walk in Shower Home Equipment Straight Cane,Hand Held Shower ,Grab Bars In Shower Additional Social History Comment Pt lives with his spouse, Lula, who returns to full- time work this Tuesday. Pt identifies no other source of help. Pt has 30ft in order to get into his house, therefore go up a curb, walk 30ft and up 1/2 step to his deck per pt. M2 OT-IP Current Condition Start: 05/21/21 13:31 Freq: Status: Active Protocol: Document 05/21/21 13:32 [facility] (Rec: 05/21/21 13:48 [facility] [id number]) Occupational Therapy Current Condition Current Condition Evaluation Date 05/21/21 Treatment Diagnosis S/p L2-3,L3-4,L4-5, L5-S1 TLIF , decreased mobility Diagnosis Onset Date 05/20/21 Post Operative Precautions Lumbar Precautions Log Roll,No Twisting,Limit Bending,Lifting Restriction of 10 lbs,Gait Belt above Incisional Area M3 OT- IP Subjective and Pain Start: 05/21/21 13:31 Freq: Status: Active Protocol: Document 05/21/21 13:32 [facility] (Rec: 05/21/21 13:48 [facility] [id number]) OT- Subjective Occupational Therapy Visit Type Type Initial Evaluation Visit Start Time 10:10 Visit Stop Time 10:53 Total Visit Minutes 43 Occupational Therapy Visit Comments Patient Comments Pt agreed to get up. Patient/Caregiver Goals To go home. OT Pain Assessment Pain When Pain Assessed During Mobility Pain Present Pain Present Pain Reported Location back Intensity 5 Scale Used Numeric (0 - 10) M4 OT- IP ADL's Start: 05/21/21 13:31 Freq: Status: Active Protocol: Document 05/21/21 13:32 [facility] (Rec: 05/21/21 13:48 [facility] [id number]) OT [id number] Comments OT Self-Feeding Comments Not at meal time. OT ADL-Grooming General Evaluation Grooming Ability Standby Assistance Areas Needing Assistance Retrieving/Set-up of Grooming Items OT ADL-Oral Care General Eval Oral Care Ability Standby Assistance Areas of Assistance Retrieving/Set-Up of Items Comments Oral Care Comments Education best to spit into a cup or hinge at his hips to best follow his back precautions. OT ADL-Dressing General Eval Lower Body Dressing Ability Maximum Assistance Areas Needing Assistance Socks Comments OT Dressing Comments Able to initiate use of shoe salesman and sock aid for ADL needs. OT ADL-Toileting Comments OT Toileting Comments Pt not having to go, montano in place. OT ADL-Bathing Comments OT Bathing Comments NOt performed, to do tomorrow. Suggested pt to get a shower chair for home use. M5 OT- IP IADL's Start: 05/21/21 13:31 Freq: Status: Active Protocol: Document 05/21/21 13:32 [facility] (Rec: 05/21/21 13:48 [facility] [id number]) OT-Instrumental Activities of Daily Living Home Safety Awareness Home Safety Comments Pt a little groggy and not able to recall his back precautions and to have his assist him at home. To clarify how long his will be off of work to assist him. Money Management Money Management Caregiver Provides Assistance Meal Preparation Meal Preparation Caregiver Provides Assist Scale Attendant Scale Attendant Caregiver Provides Assist M6 OT- IP Functional Cognition Start: 05/21/21 13:31 Freq: Status: Active Protocol: Document 05/21/21 13:32 [facility] (Rec: 05/21/21 13:48 [facility] [id number]) Cognitive Factors Limiting Selfcare Function Cognitive Ability Level of Alertness Alert,Drowsy Patient Orientation Name,Place,Situation Attention Span Ability Capable of Focused Attention, Capable of Sustained Attention Ability to Follow Commands Able to Follow One Step Commands with Increased Time, Able to Follow One Step Commands with Repetition Safety Awareness Decreased Recall of Precautions Cognitive Comments Cognitive Assessment Comments Pt needing safety cues for hand placement as tends to want to grab the FWW to stand. Pt needing reminders for his back precautions as well for ADl and mobility needs. OT- Vision and Hearing OT- Hearing Assessment OT- Hearing Assessment WFL OT- Vision Assessment Visual Acuity WFL M7 OT- IP Mobility and Balance Start: 05/21/21 13:31 Freq: Status: Active Protocol: Document 05/21/21 13:32 [facility] (Rec: 05/21/21 13:48 [facility] [id number]) OT- Bed Mobility Assessment Rolling Type of Rolling Roll to Left Level of Assistance Minimal Assistance Supine to Sit Supine to Sit Assist Moderate Assistance OT-Transfer Assessment Sit to and From Stand Sit to and from Stand Moderate Assistance,1 Person Assistance Transfers Transfer Ability Minimal Assistance,Moderate Assistance,1 Person Assistance Technique Transfer Destination Bed,Chair Transfer Technique Stand Step Pivot Devices Transfer Assistive Devices Gait Belt,Front Wheeled Walker OT- Balance Assessment Sitting Balance and Reactions Static Sitting Balance Ability Good Dynamic Sitting Balance Ability Fair Standing Balance and Reactions Static Standing Balance Ability Fair M8 OT- IP Objective Assessments Start: 05/21/21 13:31 Freq: Status: Active Protocol: Document 05/21/21 13:32 [facility] (Rec: 05/21/21 13:48 [facility] [id number]) OT-Muscle Tone Assessment Muscle Tone WNL Yes M9 OT- IP Assessment and Plan Start: 05/21/21 13:31 Freq: Status: Active Protocol: Document 05/21/21 13:32 [facility] (Rec: 05/21/21 13:48 [facility] [id number]) OT Summary Assessment and Plan Potential Rehabilitation Potential Good Analytic Complexity at Evaluation Low Summary OT Impairments Pain,Balance,Functional Mobility,Dressing,Toileting, Bathing,Toilet Transfers, Shower Transfers,Activity Tolerance Progress Towards Goals Slow Progress due to Pain,Slow Progress due to Medical Issues,Slow Progress due to Activity Tolerance Assessment Summary Pt low complexity and main barrier is pain, decreased activity tolerance and now needing MODA for mobility needs and will benefit from BSC, shower chair, LB dressing equipment and FWW in addition to his 's assist. Pt will benefit from 24/7 asisst at home and home health versus possible short rehab stay pending pt's progress and caregiver training. Goals Grooming Goal Independent Dressing Goal Independent Toileting Goal Independent Bathing Goal Standby Assistance Toilet Transfer Goal Independent Shower Transfer Goal Independent Patient/Caregiver Education Goal Demonstrate Post-Op Precautions,Caregiver Independent Assisting Patient Days to Meet Goals 10 Frequency of Treatment Frequency Of Treatment Once a Day Treatment Plan OT Treatment Plan ADL Training,Functional Cognition Training,Functional Mobility,Patient/Family Education,Discharge Planning Other Treatment Recommendations and Next shower Treatment Focus Discharge Recommendations OT Discharge Recommendations Home with 24/7 Assist Available,Home Health,SNF Rehab,Home vs SNF Home Equipment Needs Shower chair, FWW, LB dresing equipment, BSC? Transportation Needs at Discharge Private Vehicle,Wheelchair/ Cabulance
--- NOTE | 2021-05-21 11:35 | PT.IIE ---
Current Diagnoses Other secondary scoliosis, lumbar region (05/20/21) Spondylolisthesis, site unspecified (05/20/21) Spinal stenosis, lumbar region with neurogenic claudication (05/20/21) Surgery Performed Operation Date: 05/20/21 07:45 Actual Procedures p L2-3, L3-4, L4-5, L5-S1 TLIF w. posterior instrumentation-Robot - Guru Flores MD Surgical History (Last Reviewed 05/21/21 @ 07:52 by Umair Layton PA-C) Status post arthroscopy (2002) Status post cardiac catheterization (06/2009) Medical History (Last Reviewed 05/21/21 @ 07:52 by Umair Layton PA-C) BPH w urinary obs/LUTS CAD (coronary artery disease) Cerebrovascular accident (CVA) (05/29/13) Chronic back pain Chronic rhinosinusitis Complex partial seizure disorder Easy bruisability Enlarged prostate Essential hypertension (06/01/16) GERD (gastroesophageal reflux disease) Gout Gout, chronic (01/26/11) HTN (hypertension) Mixed hyperlipidemia (06/23/16) Non-STEMI (non-ST elevated myocardial infarction) (06/2009) Osteopenia Steroid-dependent asthma Unspecified asthma (01/26/11) Physical Therapy Inpatient Evaluation/Re-Eval M1 PT/OT-IP Prior Functional Status Start: 05/21/21 08:28 Freq: NEEDED Status: Active Protocol: Document 05/21/21 11:35 AW (Rec: 05/21/21 13:07 AW [id number]) Medical Review Prior Functional Status Medical History Reviewed Yes Communication Pt is able to make his needs known. Mobility and Gait Pt states he holds on to furniture in the house. He uses a cane to get to the car. Prior Functional Level (Other details) PMH includes NSTEMI, HTN, and gout. Social History Household Members spouse Living Arrangements House Number of Floors (Floors) One Floor Number of Stairs To Enter/Railing? 1 platform ANGELLA with no rail Home Environment High Toilet,Walk in Shower Home Equipment Straight Cane,Hand Held Shower Additional Social History Comment Pt lives with his spouse, Lula, who returns to full- time work this Tuesday. Pt identifies no other source of help. M2 PT-IP Current Condition Start: 05/21/21 08:28 Freq: NEEDED Status: Active Protocol: Document 05/21/21 11:35 AW (Rec: 05/21/21 13:07 AW [id number]) Physical Therapy Current Condition Current Condition Evaluation Date 05/21/21 Treatment Diagnosis L2-S1 TLIF; difficulty in walking Onset Date 05/20/21 M3 PT-IP Subjective Start: 05/21/21 08:28 Freq: NEEDED Status: Active Protocol: Document 05/21/21 11:35 [facility] (Rec: 05/21/21 13:07 AW [id number]) Subjective Physical Therapy Visit Type Type Initial Evaluation Visit Start Time 11:16 Visit Stop Time 11:35 Total Visit Minutes 19 Physical Therapy Visit Comments Patient Comments Pt is willing to participate with PT Patient Goals Return home with spouse support Therapy Pain Assessment Pain When Pain Assessed During Mobility Pain Present Pain Present Pain Reported Location back Intensity 9 Scale Used 6/10 at rest Pain Behaviors Facial Grimacing,Wincing Pain Management Techniques Modification of Treatment,Re- positioning,Timing of Activity with Medications M4 PT-IP Mobility and Gait Start: 05/21/21 08:28 Freq: NEEDED Status: Active Protocol: Document 05/21/21 11:35 AW (Rec: 05/21/21 13:07 AW [id number]) PT-Bed Mobility Assessment Rolling Type of Rolling Log Rolling,Roll to Left Level of Assist Moderate Assistance,1 Person Assistance Supine to Sit Supine to Sit Moderate Assistance,1 Person Assistance Sit to Supine Sit to Supine Moderate Assistance,1 Person Assistance Scooting Scooting to Edge of Bed Contact Guard Assistance PT-Transfer Assessment Sit to and From Stand Sit to and from Stand Moderate Assistance,1 Person Assistance,Use of Upper Extremities Equipment Transfer Assistive Device Gait Belt,Front Wheeled Walker Transfers Transfer Destination Bed,Chair Transfer Technique pt ambulated with FWW Transfer Ability Level of Assist Minimal Assistance Comments Mobility Comments Pt was sitting upright in the chair as PT arrived. He stood from the chair with cues for back precautions and mod A x 1 . He needed assist for hand to walker handle and cues for quad activation. Once standing with FWW, he was able to walk with slow pace and kyle around the bed toward the door . He turned and walked to the bed. PT demonstrated hip hinge form and pt was able to return demonstrate, sitting EOB. PT provided min A for sit to supine with log roll and mod A for log roll supine to sit. Pt stood from the bed ( raised slightly to mimic bed at home) mod A and used FWW to walk around the foot of the bed back to the chair. Pt sat on the chair and was positioned with legs elevated, ice pack on low back, call light and tray table in reach. Gait Assessment Gait Gait Assistance Required: Contact Guard Assist Distance (Feet) 20 Able to Maintain Weight Bearing Status Yes During Gait Assistive Devices Assistive Device Gait Belt,Front Wheeled Walker Orthotic/Prosthetic Devices or Brace: No Gait Deviations General Gait Pattern Antalgic,Decreased Stride Length,Decreased Feet Clearance Factors Limiting Gait Function Factors Limiting Gait Function Decreased Strength,Limited Range of Motion,Pain,Poor Balance,Poor Safety Awareness Comments Gait Comments Pt required intermittent cues to attend to task during gait but had no buckling or LOB. Stair Climbing Assessment Comments Stair Climbing Comments Not assessed. PT-Balance Assessment Sitting Balance and Reactions Static Sitting Balance Ability Good Dynamic Sitting Balance Ability Good Standing Balance and Reactions Static Standing Balance Ability Fair Dynamic Standing Balance Ability Fair Device Used FWW M5 PT-IP Objective Assessments Start: 05/21/21 08:28 Freq: NEEDED Status: Active Protocol: Document 05/21/21 11:35 AW (Rec: 05/21/21 13:07 AW [id number]) Orientation Orientation/Cognition Level of Alertness Alert Orientation Name,Day of Week,Place, Situation Language Function Ability No Deficits Noted Safety Awareness Decreased Safety Awareness Comments Safety awareness likely affected by pain medication. Gross Range of Motion Lower Extremity ROM Assessment Within Functional Limits Strength Lower Extremity Strength Assessment Bilaterally Impaired Hip 4/5 Knee 4/5 Ankle 4-/5 Sensation Assessment Sensation Gross Sensation WNL Muscle Tone Muscle Tone WNL Yes M6 PT-IP Treatment Start: 05/21/21 08:28 Freq: NEEDED Status: Active Protocol: Document 05/21/21 11:35 AW (Rec: 05/21/21 13:07 AW [id number]) Physical Therapy Treatment Education Education Provided Precautions,Weight Bearing Status,Post-Op Packet,Safety Other Treatments Other Treatment Performed Educated pt on PT plan of care , post-op precautions, recommendation for FWW at this time. M7 PT-IP Assessment and Plan Start: 05/21/21 08:28 Freq: NEEDED Status: Active Protocol: Document 05/21/21 11:35 AW (Rec: 05/21/21 13:07 AW [id number]) PT Summary Assessment and Plan Potential Rehabilitation Potential Good Status of Condition at Evaluation Evolving Summary Impairments Pain,ROM,Strength,Balance, Cognition,Bed Mobility, Transfers,Gait,Activity Tolerance Assessment Summary Marco is a 66 yo man seen for PT evaluation on POD1 following L2-S1 TLIF. He is modified independent with mobility at baseline using SPC outside of the house. On assessment, he required mod assist for sit to stand and bed mobility, CGA for ambulation with FWW. He will most likely be safe to discharge home with assist but pt is unclear about how much time his is able to take off of work. Pending progress and level of assist available at home, pt may require HH PT or SNF rehab. Will continue to assess for safe discharge plan. Goals Bed Mobility Goal Standby Assistance Transfer Goal Standby Assistance,Front Wheeled Walker Gait Goal Standby Assistance,Front Wheel Walker Gait Distance 150 Other Goals -- up/down platform step x 1 with FWW CGA Days to Meet Goals 5 Frequency of Treatment Frequency Of Treatment Twice a Day Treatment Plan Physical Therapy Treatment Plan Bed Mobility Training,Transfer Training,Gait Training, Therapeutic Exercise,Balance Retraining,Post Op Education, Discharge Planning,Hot or Cold Pack,Neuromuscular Re-ed Other Recommendations and Next Treatment transfers, gait with FWW, sit Focus to stands for hip hinge Precautions Lumbar Precautions Log Roll,No Twisting,Limit Bending,Lifting Restriction of 10 lbs,Gait Belt above Incisional Area Recommendations To Nursing Amount of Assist Needed 1 Person Assist Discharge Recommendations PT Discharge Recommendations Home with Assistance,Home Health,Home vs SNF Transportation Needs at Discharge Private Vehicle,Wheelchair/ Cabulance
--- NOTE | 2021-05-21 14:33 | CM.DANOTE ---
Addendum entered by Maggie Pinedo R.N. 05/21/21 15:28: Spoke to Sabra from [employer] about the referral, she indicated, they can run his insurance, since he has [employer]. Asked patient and spouse if he wanted to go to rehab, and spouse stated, she will take some time off of work to help him at home, would rather him go home with home health. Addendum entered by Maggie Pinedo R.N. 05/21/21 15:07: Spoke to patient's , Lula, for patient is sleeping. Discussed home healths services, spouse indicated they have no preference on agencies, have not used home health before. Went ahead and gave her the [employer] brochure, since it was listed on the calendar for this week. Will complete face to face and fax the referral. Original Note: DCP: Case received, EMR reviewed and met with patient. Spouse, Lula, was also at bedside. Introduced self and role. Was able to obtain some information regarding patient's baseline activity level prior to surgery. DCP assessment completed with information currently available. Patient is a 66 year old male who admitted yesterday morning to the care of the surgical team. PCP: Dr. Holt. Payer: [employer]/Medicare. Patient came to the hospital via private vehicle for a surgical procedure. Patient had L2-3, L3-4, L4-5, L5-S1 postero-lateral and posterior interbody fusion. Patient has history of spinal stenosis with radiculopathy and spondylosis. Met with patient in his room. He resides here in [place] with his spouse, Lula, who was also present. At patient's baseline, he has been independent, he drives, does have a cane. He has one step to get into the house. Spouse's concerns are that she works, but patient does also have a son in his 30s at home that may also be able to give some support. Patient stated, as long as I'm set up at home, I should be ok. He will be working with therapy. Did mention the option of having home health, and he indicated, he would be open to that if needed. P: DCP to continue to follow closely for needs, and see how he does with P.T. Home is the plan, but home health may also be an option. Maggie Pinedo RN/Tree Wrapper Discharge Planning/Care Management Discharge Assessment Start: 05/21/21 14:31 Freq: Status: Active Protocol: Document 05/21/21 14:31 (Rec: 05/21/21 14:33 [id number]) Discharge Planning Assessment Advance Directives? No History Provided By Significant Other,Medical Record Prior Living Arrangements House Household Members spouse Type of transporation used prior to Drives own vehicle admit Independent with ADL's Yes Is patient alert and oriented? Yes DME Already Rented / Owned Cane Patient/Family Preference Home with Home Health Comment Mentioned briefly to patient pending upon how he does with P.T. Discharge Plan Home Transportation Arrangement Spouse Referrals Initiated Other Additional Comment Will see how patient does with P.T. If patient plan is home with home health There are some presigned face : Has signed face to face form been to face forms completed? Review Status In Process Next Review Type Continued Stay Review Pre-Anesthesia Assessment Start: 05/13/21 10:44 Freq: Status: Complete Protocol: Document 05/13/21 10:44 [facility] (Rec: 05/13/21 11:26 [facility] [id number]) Pre-Anesthesia Assessment Preferred Name Marco Patient Information Reviewed Via Phone Assessment Assessment Completed With Patient H&P Completed Within 30 Days Yes Diagnostic Results BMP/CMP,CBC,EKG Comment Labs/ECG @ 04/17/21, COVID screen @ 05/18/21 Primary Care Provider Kelvin Holt Medical Clearance Received Yes Specialist Seen Orthopedist Comment PCP clearance scanned Primary 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 Height 5 ft 9 in Weight 175 lb Body Mass Index (BMI) 25.8 Hearing Ability Normal Visual Impairment No Limitations Visual Assist None Dentition Type Teeth, Natural Present Barriers to Learning None Hx Anesthesia Reactions No Hx Family Anesthesia Reaction No Hx Malignant Hyperthermia No Hx Blood Transfusions No Anesthesia Review Requested No alcohol intake current alcohol intake frequency 0-2 drinks per day Smoking Status Never smoker Substance Use Type does not use Pain Present Pain Reported Musculoskeletal Symptoms Abnormal Gait,Back Pain, Difficulty Walking,Joint Pain, Radiating Pain into Limb History of Falling (Recent or History of No ) Patient is completely paralyzed or No completely immobile Mental Status Oriented to own ability Is patient on oxygen? No Does patient have ORELLANA/SOB No Hx Sleep Apnea No Currently Taking a Beta Errol No Hx Chest Pain No: Denies with ND Hx SOB Yes: r/t ND, asthma Hx Syncope or Dizziness No Anti-Coagulant Therapy Yes: 81mg ASA, pt will check w /PCP if to continue Has a Artificial Breast Fabricator No Cardiac Testing No Hx Pacemaker/ICD No Pacemaker Rep Required? No Cardiac Clearance Received Not Applicable Diet Type At Home Regular dysphagia No Gastrointestinal Symptoms Reflux Urinary Catheter Present No Hx Urinary Self Catheterization No Diabetes No Hx Drug Resistant Organism No Presence of External or Internal Medical No Devices Have you had any close contact with No someone diagnosed with COVID-19? Received a COVID vaccine? Yes Received all doses? Yes Marital Status Lives With spouse Prior Living Arrangements House Number of Floors (Floors) One Floor Support System Spouse Does the Patient Have Assistance After Yes Surgery Patient Discharge Plan Description Return Home Comment Pt advised 2-3 day length of stay per surgeon Feels Safe in Current Environment Yes Been Physically Hurt or Threatened By a No Person in Current Environment Do you have thoughts of harming yourself None or others? Are you currently considering suicide? No Do you have a plan to hurt yourself or No Plan others? Do You Have Any Spiritual Beliefs That No May Affect Your HC Choices? Do You Have Any Cultural Practices That No May Affect Your HC Choices? Who Can We Speak to About Patient's Care Family, friends Identifying Code for Release of Patient Declines to issue Information Health Care Proxy/Next of Kin Lula () Brice (son) Health Care Proxy Phone Number Lula: [phone] Brice: [phone] Emergency Contact Name Lula () Brice (son) Emergency Contact Phone Number Lula: [phone] Brice: [phone] Advance Directives? No Power of In Home Baby Sitter No PAC Instructions Durable medical equipment, Medications to take/avoid, Nasal antibiotic,No ETOH/ petroleum product on skin DOS, NPO,Post-op transportation,Pre -surgical wash,Sensory aids, Sturdy shoes/comfortable clothes,Do not bring valuables and remove jewelry
--- NOTE | 2021-05-21 15:13 | PC.NURSE ---
1500: Pt with adequate PO intake and no complaints of nausea/vomiting. IVF discontinued per order. Mccullough catheter also discontinued per order as today is post operative day 2. Pt offers no commplaints or concerns.
--- NOTE | 2021-05-21 15:17 | PT-IP ANOTE ---
Attempted to see pt for PM treatment. Pt was sleeping soundly and allowed to rest. PT did speak with pt's who confirms she is going back to work on Tuesday. Pt's son may be able to assist some at home. PT reviewed recommended equipment list with pt's spouse who states she will go to [facility] tomorrow. Spouse, Lula, agrees to caregiver training at 11:00 a.m. tomorrow and understands PT and OT are continuing to assess for best discharge plan.
[2021-05-21 17:41] VITALS: BP 126/71; PULSE 85; RESP 20; TEMP 37.2; O2SAT 93
[2021-05-21 19:35] VITALS: BP 104/62; PULSE 79; RESP 18; TEMP 37.5; O2SAT 93
[2021-05-21 20:45] VITALS: PULSE 89; RESP 20; O2SAT 93
[2021-05-21] MEDS: ATORVASTATIN 20 MG TABLET 80 MG PO (22:00)
[2021-05-21] MEDS: SENNOSIDES 8.6 MG TABLET 17.2 MG PO (22:00)
[2021-05-21] MEDS: SODIUM CHLORIDE 0.9% FLUSH 10 ML IV (22:01)
[2021-05-22] VITALS (7 sets, daily range): BP systolic 103–120; BP diastolic 64–72; PULSE 82–89; RESP 14–18; TEMP 36.6–37.5; O2SAT 93–94
[2021-05-22] MEDS: PANTOPRAZOLE DR 20 MG TABLET PO (05:43)
[2021-05-22] MEDS: OXYCODONE IR 5 MG TABLET 10 MG PO ×2 (05:43→10:10)
[2021-05-22] MEDS: ACETAMINOPHEN 325 MG TABLET 650 MG PO (05:44)
--- NOTE | 2021-05-22 07:33 | PC.NURSE ---
Shift Note-Patient unable to void by 8 hrs of removal of Mcclulough, scanned 425ml, In/Out straight cath done. Oxycodone controlling back pain, Tylenol given for temp 99.5. Drsg to back reenforced again d/t moderate serous drainage.
[2021-05-22] MEDS: DOCUSATE 100 MG CAPSULE PO ×2 (08:45→20:59)
[2021-05-22] MEDS: lisinopriL 20 MG TABLET 40 MG PO (08:46)
[2021-05-22] MEDS: levETIRAcetam 250 MG TABLET 500 MG PO (08:46)
[2021-05-22] MEDS: allopurinoL 300 MG TABLET PO (08:47)
[2021-05-22] MEDS: predniSONE 5 MG TABLET 10 MG PO (08:47)
--- NOTE | 2021-05-22 09:22 | PM.DS.1 ---
History of Present Illness History of Present Illness Date Patient Seen: 05/22/21 Time Patient Seen: 09:22 Chief complaint: Back pain Narrative: Pain is been moderate to severe. Denies fever or chills. No nausea vomiting. Discharge Providers Provider Date of admission: 05/21/21 15:02 Discharge Date: 05/22/21 Primary care physician: Kelvin Holt MD Consults: 05/20/21 17:19 Consult to Occupational Therapy Evaluate & Treat Comment: Physician Instructions: Evaluate and treat Consult to Physical Therapy Evaluate & Treat Comment: Physician Instructions: Evaluate and Treat Discharge provider: Umair Layton PA-C Summary Hospital Course Discharge Diagnosis: 1. Lumbar scoliosis 2. L2-3, L3-4, L4-5, L5-S1 spinal stenosis with radiculopathy 3. L2-3, L3-4, L4-5, L5-S1 spondylosis with radiculopathy Hospital Course: 1. L2-3, L3-4, L4-5, L5-S1 Postero-lateral and posterior interbody fusion 2. L2-3, L3-4, L4-5, L5-S1 interbody cage placement. 3. L2-3, L3-4, L4-5, L5-S1 decompressive laminectomy with bilateral facetecomies 4. L2-3, L3-4, L4-5, L5-S1 Posterior segmental instrumentation 5. [place] of bone marrow from iliac crest 6. Utilization of microsurgical technique and operating microscope 7. Utilization of Siensius robotic navigation Same procedure as scheduled: Yes Indications: Patient has been having chronic back pain and worsening lumbar radiculopathy. Patient has been having progressive worsening back pain and leg pain with difficulty ambulating. Patient failed multiple conservative management with worsening pain weakness and numbness in his lower extremity.? Patient has been having difficulty performing activity of daily living.? After discussing risks benefits of treatment options, patient elected proceed with surgery. Surgeon: Guru Flores Velvet Steamer: Angelica Negrete Click Yes if Unassisted: No Anesthesia Type: General Operative Notes Closure Type: primary Specimen(s): none sent Prosthetic devices, grafts, tissues, transplants, or devices: Globus CREO MIS screws, Rise cages Estimated Blood Loss (mL): 200 Blood products transfused: none Patient admitted to the hospital for the above-mentioned procedure. Patient consented to the same. Patient taken operating room on May 20, 2021 underwent lumbar fusion. Patient back in his room recovering well as in stable condition. Status at Discharge Cognitive/behavioral status at discharge: at baseline, oriented Functional status at discharge: uses cane/walker Overall status at discharge: patient is progressing back to baseline Exam Vital Signs (past 8 hours): - 05/22/21 04:15 05/22/21 05:44 05/22/21 08:39 Temperature 99.5 F 99.5 F 98.6 F Pulse Rate 82 84 Respiratory Rate 18 17 Blood Pressure 115/68 117/69 Pulse Oximetry 94 93 Oxygen Delivery Method Nasal Cannula Oxygen Flow Rate 0 Narrative Exam Narrative: 66-year-old male resting comfortably in bed in no apparent distress. Motor functions intact bilateral lower extremities. Sensation grossly intact to light touch bilateral lower extremities. Const General: cooperative, healthy appearing and comfortable Orientation: alert Resp Effort & Inspection: normal respiratory effort and able to speak in complete sentences Objective Labs Result Diagrams: 05/21/21 04:05 [facility] Medical History BPH w urinary obs/LUTS CAD (coronary artery disease) Cerebrovascular accident (CVA) (05/29/13) Chronic back pain Chronic rhinosinusitis Complex partial seizure disorder Easy bruisability Enlarged prostate Essential hypertension (06/01/16) GERD (gastroesophageal reflux disease) Gout Gout, chronic (01/26/11) HTN (hypertension) Mixed hyperlipidemia (06/23/16) Non-STEMI (non-ST elevated myocardial infarction) (06/2009) Osteopenia Steroid-dependent asthma Unspecified asthma (01/26/11) Surgical History Hx of LASKIM Hx of sinus surgery S/P shoulder surgery (02/07/20) Status post arthroscopy (2002) Status post cardiac catheterization (06/2009) Social History household members: spouse Smoking Status: Never smoker alcohol intake: current Discharge Assessment & Plan Assessment and Plan Assessment: Patient progressing as expected status post lumbar fusion Plan of Treatment: Mobilize with physical therapy Limit bending, twisting, lifting Multimodal pain management Disposition, home today Discharge Plan Discharge Plan Patient Disposition: Home Discharge orders & Medications Prescriptions: New acetaminophen 325 mg Tablet 650 mg PO Q6HR PRN (Reason: Pain, Mild (1-3)) Qty: 60 0RF docusate sodium 100 mg Capsule 100 mg PO BID Qty: 20 0RF oxycodone 5 mg Tablet 10 mg PO Q3HR PRN (Reason: Pain, Severe (7-10)) Qty: 60 0RF hydroxyzine pamoate 25 mg Capsule 25 mg PO Q4HR PRN (Reason: Nausea And Vomiting) Qty: 40 0RF hydromorphone [Dilaudid] 2 mg tablet 2 mg PO Q6H Qty: 30 0RF Continued prednisone 10 mg tablet 10 mg PO DAILY Qty: 30 0RF atorvastatin 80 mg tablet 80 mg PO HS Qty: 90 3RF lisinopril 40 mg tablet 40 mg PO QDAY Qty: 90 3RF omeprazole 20 mg tablet,delayed release (DR/EC) 20 mg PO DAILY Qty: 90 3RF albuterol sulfate 90 mcg/actuation HFA aerosol inhaler 2 puff inhalation Q4-6H PRN (Reason: Shortness Of Breath) 0RF allopurinol 300 mg tablet 300 mg PO DAILY Qty: 90 3RF Rx Instructions: Take 1 tablet every day when acute gout attack is over. (DME) Disabled Parking See Rx Instructions .ROUTE .MEDSUPPLY Qty: 1 0RF Rx Instructions: Patient qualifies for disabled parking as per the attached form. levetiracetam 500 mg tablet 500 mg PO DAILY 0RF Discontinued aspirin [Aspir-Low] 81 mg Tablet,Delayed Release (Dr/Ec) 81 mg PO DAILY Qty: 0 0RF indomethacin 25 mg capsule 50 mg PO TID Qty: 360 3RF Follow up/Referrals: Guru Flores MD [Physician] - (2 weeks) Kelvin Holt MD [Primary Care Provider] - Diet/Activity/Treatments Diet: Diet as Tolerated Activity: Limit bending, twisting, lifting Skin/Wound/Dressing Care Report to your healthcare provider any signs of infection, such as:: chills, fever, increased pain, unusual drainage and unusual redness Dressing: Keep dressing clean and dry Visit Report/Discharge Packet Instructions: DI for Prescription Opioid Use, DI for Transforaminal Lumbar Interbody Fusion Stand Alone Forms: Surgery Discharge Discharge Data Primary Care Provider: Kelvin Holt Attending Provider: Sandra,Dawei Quality VTE Deep Vein Thrombosis/Pulmonary Embolism Present on Admission: No
[2021-05-22] MEDS: SODIUM CHLORIDE 0.9% FLUSH 10 ML IV ×2 (10:18→21:00)
--- NOTE | 2021-05-22 10:54 | CM.DPC ---
DCP Cont: Patient is to be discharging home today. There will be more caregiver training today with patient's spouse, Lula. Went ahead and faxed [facility] the orders, face to face, DC Summary. Let Farideh QUALITY SPECIALIST, know, since she is upper caser for patient, and this DC account planner is assisting her with this case. Sabra from [facility] called back, and has referral. She stated, if she has any problems with his insurance, she will let us know, otherwise, he is good to go. Let Sabra also know that if patient somehow does not go today, will update her. P: Patient is to discharge home today when cleared by P.T, and when caregiver training is completed. Maggie Pinedo RN/[employer]
[2021-05-22] MEDS: TAMSULOSIN 0.4 MG CAPSULE PO (11:14)
--- NOTE | 2021-05-22 11:46 | PT.IPTN ---
Current Diagnoses Other secondary scoliosis, lumbar region (05/21/21) Spondylolisthesis, site unspecified (05/21/21) Spinal stenosis, lumbar region with neurogenic claudication (05/21/21) Surgery Performed Operation Date: 05/20/21 07:45 Actual Procedures p L2-3, L3-4, L4-5, L5-S1 TLIF w. posterior instrumentation-Robot - Guru Flores MD Physical Therapy Treatment Note M2 PT-IP Current Condition Start: 05/21/21 08:28 Freq: NEEDED Status: Active Protocol: Document 05/22/21 10:56 SP (Rec: 05/22/21 13:58 SP [id number]) Physical Therapy Current Condition Current Condition Evaluation Date 05/21/21 Treatment Diagnosis L2-S1 TLIF; difficulty in walking Onset Date 05/20/21 M3 PT-IP Subjective Start: 05/21/21 08:28 Freq: NEEDED Status: Active Protocol: Document 05/22/21 10:56 SP (Rec: 05/22/21 13:58 SP [id number]) Subjective Physical Therapy Visit Type Type Treatment Note Visit Start Time 10:56 Visit Stop Time 11:46 Total Visit Minutes 50 Notes Lula in room, completed caregiver training: donned gait belt and provided physical assist required throughout tx. Number of PROJECT ADMINISTRATOR Visits 1 Physical Therapy Visit Comments Patient Comments Pt is willing to participate with PT. Patient Goals Return home with spouse support. Therapy Pain Assessment Pain When Pain Assessed During Mobility Pain Present Pain Present Pain Reported Location back Intensity 6 Scale Used Numeric (0 - 10) Description With Movement Pain Behaviors Facial Grimacing Pain Management Techniques Distraction,Modification of Treatment,Re-positioning, Timing of Activity with Medications M4 PT-IP Mobility and Gait Start: 05/21/21 08:28 Freq: NEEDED Status: Active Protocol: Document 05/22/21 10:56 SP (Rec: 05/22/21 13:58 SP [id number]) PT-Bed Mobility Assessment Rolling Type of Rolling Log Rolling,Roll to Left Level of Assist Moderate Assistance,1 Person Assistance Supine to Sit Supine to Sit Moderate Assistance,1 Person Assistance Scooting Scooting to Edge of Bed Contact Guard Assistance PT-Transfer Assessment Sit to and From Stand Sit to and from Stand Minimal Assistance,1 Person Assistance,Use of Upper Extremities Equipment Transfer Assistive Device Gait Belt,Front Wheeled Walker Orthotic/Prosthetic Devices or Brace: No Transfers Transfer Destination Chair Transfer Technique pt ambulated with FWW Transfer Ability Level of Assist Contact Guard Assistance, Minimal Assistance Comments Mobility Comments Pt was supine in bed when arrived. Completed LR L (side bed uses at home), L SL>sit, support BLE to EOB then pulled from 's hand and support at L upper back to right trunk sit, Mod A, scoot to EOB CGA. Sit>stand Min A with cues from PROJECT ADMINISTRATOR and education to to tell pt pushing from bed to come complete stand w/ FWW. Pt progressed gait around end bed to chair Min A, cued increased foot clearance and body closer to FWW at times assisted fWW repositioning and pivot/back up and center front chair then reach back slow descent chair Min A. Cued scoot back fully in chair for safety and trunk alignment, SBA self BUE on chair arms. 3 min rest then Sit>stand from chair Min A BUE on chair arms cued by , gait outside door w/ FWW CG-Min A improved step over step patterning better foot clearance. Ascend/ descend 1 PF step w/ FWW max cues for pt and positioning and assist FWW Wolfgang by and CGA for safety by PROJECT ADMINISTRATOR, cued quad fac ascend and eccentric lowering, hip hinge to maintain spinal precautions no bending. Pt completed 2nd set PF step, Min A by only, improved able to selves, stable. Pt walked further distance hallway 100ft total, ended back room chair Min A slow sit in chair. PROJECT ADMINISTRATOR discussed pt needs 24/7 and recommending HHPT for improve strength and functional mobility. stated has grass area 10-20ft to walk over to get to step and got FWW and when can use SPC again . PROJECT ADMINISTRATOR proceeded CGT: STS from chair use of SPC to sink and back Min- Mod A with cues for foot clerance, noted trunk sway stabilizing and states not as safe as with FWW . Pt returned to chair both in agreement HHPT and use FWW she acquired. PROJECT ADMINISTRATOR also suggested use of chairs to sit ouside for tiring recovery if needed pre step and gait over grass w/ FWW lift advance with verbal good strategies. Also recommended 2nd person if feel needed, friend due to son not coming til after 5 pm today, both agreed. Pt is ok return home when medically cleared. Gait Assessment Gait Gait Assistance Required: Contact Guard Assist,Minimum Assistance,1 Person Assist Distance (Feet) 100 Able to Maintain Weight Bearing Status Yes During Gait Assistive Devices Assistive Device Gait Belt,Straight Cane,Front Wheeled Walker Orthotic/Prosthetic Devices or Brace: No Gait Deviations General Gait Pattern Antalgic,Decreased Stride Length,Decreased Feet Clearance,Lateral Trunk Lean, Narrow Based Gait,Step-to Gait Factors Limiting Gait Function Factors Limiting Gait Function Decreased Activity Tolerance, Decreased Strength,Difficulty Following Directions,Limited Range of Motion,Pain,Poor Balance,Poor Safety Awareness Comments Gait Comments Pt has trunk sway during short distance gait using SPC Min- Mod A and place closer, improved step to then step over step patternining usign fWW CG-Wolfgang. Stair Climbing Assessment Evaluation Level of Assist On Stairs Minimal Assistance,1 Person Assistance Devices Stair Climbing Assistive Devices Front Wheel Walker Technique/Endurance Stair Climbing Direction Ascend and Descend Stair Climbing Technique Step to Step Number of Steps Climbed 1 Stair Climbing Set # Repetitions (reps) 2 Comments Stair Climbing Comments see mobility comments PT-Balance Assessment Sitting Balance and Reactions Static Sitting Balance Ability Good Dynamic Sitting Balance Ability Fair Standing Balance and Reactions Static Standing Balance Ability Fair Dynamic Standing Balance Ability Fair Device Used FWW M5 PT-IP Objective Assessments Start: 05/21/21 08:28 Freq: NEEDED Status: Active Protocol: Document 05/21/21 11:35 AW (Rec: 05/21/21 13:07 AW [id number]) Orientation Orientation/Cognition Level of Alertness Alert Orientation Name,Day of Week,Place, Situation Language Function Ability No Deficits Noted Safety Awareness Decreased Safety Awareness Comments Safety awareness likely affected by pain medication. Gross Range of Motion Lower Extremity ROM Assessment Within Functional Limits Strength Lower Extremity Strength Assessment Bilaterally Impaired Hip 4/5 Knee 4/5 Ankle 4-/5 Sensation Assessment Sensation Gross Sensation WNL Muscle Tone Muscle Tone WNL Yes M6 PT-IP Treatment Start: 05/21/21 08:28 Freq: NEEDED Status: Active Protocol: Document 05/22/21 10:56 SP (Rec: 05/22/21 13:58 SP [id number]) Physical Therapy Treatment Education Education Provided Precautions,Weight Bearing Status,Post-Op Packet,Safety Other Treatments Other Treatment Performed Pt recalled 1/3 precautions, cues for BLT then remembered no twisiting but needed to tell him no Lifting heavy items > 8lbs for safety. knew all precautions and was able assist cues/ support maintain. will be asking for more time off and son will be there to assist 7 as long as needed. M7 PT-IP Assessment and Plan Start: 05/21/21 08:28 Freq: NEEDED Status: Active Protocol: Document 05/22/21 10:56 SP (Rec: 05/22/21 13:58 SP [id number]) PT Summary Assessment and Plan Potential Rehabilitation Potential Good Status of Condition at Evaluation Evolving Summary Impairments Pain,ROM,Strength,Balance, Cognition,Bed Mobility, Transfers,Gait,Activity Tolerance Progress Towards Goals Progressing Toward Goals,Slow Progress due to Pain,Slow Progress due to Activity Tolerance Assessment Summary Pt Mod A LR, L SL>sit, Sit<> Stand Mod>Min A, CG- Min A during gait improved gait using FWW, unsafe balance Mod A using SPC. Recommending use FWW, acquired. Pt is ok return home assist him / when medically cleared and son coming later this evening. HHPT for improve strength and functional mobiltiy toward PLOF. Goals Bed Mobility Goal Standby Assistance Transfer Goal Standby Assistance,Front Wheeled Walker Gait Goal Standby Assistance,Front Wheel Walker Gait Distance 150 Other Goals -- up/down platform step x 1 with FWW CGA Days to Meet Goals 5 Frequency of Treatment Frequency Of Treatment Twice a Day Treatment Plan Physical Therapy Treatment Plan Bed Mobility Training,Transfer Training,Gait Training, Therapeutic Exercise,Balance Retraining,Post Op Education, Discharge Planning,Hot or Cold Pack,Neuromuscular Re-ed Other Recommendations and Next Treatment Bed mob, transfers w/FWW, gait Focus LRAD progression. Balance activities. Precautions Lumbar Precautions Log Roll,No Twisting,Limit Bending,Lifting Restriction of 10 lbs,Gait Belt above Incisional Area Recommendations To Nursing Amount of Assist Needed 1 Person Assist Discharge Recommendations PT Discharge Recommendations Home with 30/08 Assist Available,Home Health Equipment Needed for Home Before acquried BSC, FWW, SPC ( Discharge when able use). Transportation Needs at Discharge Private Vehicle
--- NOTE | 2021-05-22 12:20 | PC.NURSE ---
Umair CAUSEY assessed Pt who is feeling ready to D/c, ,however, unable to void well since montano out. Multiple attempts this am and minimal success. Bladder scan for 562 mls, call into [facility] , rec'd orders for Flomax, will try voiding trial this afternoon.
--- NOTE | 2021-05-22 12:35 | OT.IP.TRT ---
Current Diagnoses Other secondary scoliosis, lumbar region (05/21/21) Spondylolisthesis, site unspecified (05/21/21) Spinal stenosis, lumbar region with neurogenic claudication (05/21/21) Surgery Performed Operation Date: 05/20/21 07:45 Actual Procedures p L2-3, L3-4, L4-5, L5-S1 TLIF w. posterior instrumentation-Robot - Guru Flores MD Occupational Therapy Treatment Note M2 OT-IP Current Condition Start: 05/21/21 13:31 Freq: Status: Active Protocol: Document 05/21/21 13:32 [facility] (Rec: 05/21/21 13:48 [facility] [id number]) Occupational Therapy Current Condition Current Condition Evaluation Date 05/21/21 Treatment Diagnosis S/p L2-3,L3-4,L4-5, L5-S1 TLIF , decreased mobility Diagnosis Onset Date 05/20/21 Post Operative Precautions Lumbar Precautions Log Roll,No Twisting,Limit Bending,Lifting Restriction of 10 lbs,Gait Belt above Incisional Area M3 OT- IP Subjective and Pain Start: 05/21/21 13:31 Freq: Status: Active Protocol: Document 05/22/21 11:42 [facility] (Rec: 05/22/21 12:34 [facility] [id number]) OT- Subjective Occupational Therapy Visit Type Type Treatment Note Visit Start Time 11:42 Visit Stop Time 12:25 Total Visit Minutes 43 Occupational Therapy Visit Comments Patient Comments Pt's present for caregiver training and pt agreed to shower and dress. Patient/Caregiver Goals TO go home. OT Pain Assessment Pain When Pain Assessed During Mobility Pain Present Pain Present Pain Reported M4 OT- IP ADL's Start: 05/21/21 13:31 Freq: Status: Active Protocol: Document 05/22/21 11:42 [facility] (Rec: 05/22/21 12:34 [facility] [id number]) OT [id number] Comments OT Self-Feeding Comments Not at meal time. OT ADL-Oral Care General Eval Oral Care Ability Standby Assistance Areas of Assistance Retrieving/Set-Up of Items OT ADL-Dressing General Eval Lower Body Dressing Ability Maximum Assistance Areas Needing Assistance Socks,Shoes Comments OT Dressing Comments Pt very tired from just completing PT ,showering and just wanting assist to get dressed. Able to show pt's use of rickshaw driver. OT ADL-Bathing General Evaluation Bathing Ability Moderate Assistance,Maximal Assistance Areas Needing Assistance Wash/Dry Back,Wash/Dry Perineal Area,Wash/Dry Lower Extremities Comments OT Bathing Comments Pt's able to get a shower chair with arms. Able to show her how to assist pt to stand at the hips if the gait belt is not on. Reminded his to try to use good body mechanics when helping her . M6 OT- IP Functional Cognition Start: 05/21/21 13:31 Freq: Status: Active Protocol: Document 05/22/21 11:42 [facility] (Rec: 05/22/21 12:34 [facility] [id number]) Cognitive Factors Limiting Selfcare Function Cognitive Comments Cognitive Assessment Comments Pt a little impulsive at times . M7 OT- IP Mobility and Balance Start: 05/21/21 13:31 Freq: Status: Active Protocol: Document 05/22/21 11:42 [facility] (Rec: 05/22/21 12:34 [facility] [id number]) OT-Transfer Assessment Sit to and From Stand Sit to and from Stand Minimal Assistance,Moderate Assistance Transfers Transfer Ability Contact Guard Assistance, Minimal Assistance Technique Transfer Destination Chair,Shower Stall Transfer Technique Stand Step Pivot Devices Transfer Assistive Devices Gait Belt,Front Wheeled Walker Comments Mobility Comments Pt's able to safely assist pt to flakita/doff gait belt, assist to stand and for transfers. OT- Balance Assessment Sitting Balance and Reactions Static Sitting Balance Ability Good Dynamic Sitting Balance Ability Fair Standing Balance and Reactions Static Standing Balance Ability Fair M8 OT- IP Objective Assessments Start: 05/21/21 13:31 Freq: Status: Active Protocol: Document 05/21/21 13:32 [facility] (Rec: 05/21/21 13:48 [facility] [id number]) OT-Muscle Tone Assessment Muscle Tone WNL Yes M9 OT- IP Assessment and Plan Start: 05/21/21 13:31 Freq: Status: Active Protocol: Document 05/22/21 11:42 [facility] (Rec: 05/22/21 12:34 [facility] [id number]) OT Summary Assessment and Plan Potential Rehabilitation Potential Good Analytic Complexity at Evaluation Low Summary OT Impairments Pain,Balance,Functional Mobility,Dressing,Toileting, Bathing,Toilet Transfers, Shower Transfers,Activity Tolerance Progress Towards Goals Progressing Assessment Summary Pt's able to participate in caregiver training and after training able to show and demonstrate good safety and understanding how to assist her with all Adl and mobility needs. Pt's able to get all equipment needs for the pt yesterday. Pt to go home when medically stable. Goals Grooming Goal Independent Dressing Goal Independent Toileting Goal Independent Bathing Goal Standby Assistance Toilet Transfer Goal Independent Shower Transfer Goal Independent Patient/Caregiver Education Goal Demonstrate Post-Op Precautions,Caregiver Independent Assisting Patient Days to Meet Goals 10 Frequency of Treatment Frequency Of Treatment Once a Day Treatment Plan OT Treatment Plan ADL Training,Functional Cognition Training,Functional Mobility,Patient/Family Education,Discharge Planning Other Treatment Recommendations and Next shower Treatment Focus Discharge Recommendations OT Discharge Recommendations Home with 24/ Assist Available,Home Health Home Equipment Needs Shower chair, FWW, LB dresing equipment, BSC? Transportation Needs at Discharge Private Vehicle,Wheelchair/ Cabulance
--- NOTE | 2021-05-22 15:47 | PC.NURSE ---
Addendum entered by Radhames Nair R.N. 05/22/21 21:52: patient still unable to urinate more that 100-150mls, denies pain,discomfort, urge to urinate more Addendum entered by Radhames Nair R.N. 05/22/21 16:25: URINE OUTPUT 100MLS, BLADDER SCAN >400 ,PATIENT WANTS TO DRINK MORE AND TRY AGAIN WITHOUT CATH. Original Note: PATIENT AMBULATED FROM ROOM 229 TO NEW ROOM 205, URINATING SMALL AMOUNTS WITH BM AND ONE OTHER TIME BUT NOT LARGE VOLUMES
[2021-05-22] MEDS: SENNOSIDES 8.6 MG TABLET 17.2 MG PO (20:59)
[2021-05-22] MEDS: ATORVASTATIN 20 MG TABLET 80 MG PO (20:59)
[2021-05-23 00:02] VITALS: BP 111/72; PULSE 81; RESP 18; TEMP 37.5; O2SAT 96
[2021-05-23] MEDS: OXYCODONE IR 5 MG TABLET 10 MG PO ×2 (01:23→08:46)
--- NOTE | 2021-05-23 01:44 | PC.NURSE ---
Pts abdomen was slightly distended and pt stated he wanted to try to void. Pt attempted to void but was not able to. A bladder scan was done at 2236 showing 556mL. Straight cath was done and 650mL was drained from the bladder. Pt stated he felt relief and would attempt to void on his own in the morning. Will continue to monitor and scan as needed.
[2021-05-23 04:25] VITALS: BP 113/68; PULSE 80; RESP 15; TEMP 37.2; O2SAT 95
[2021-05-23] MEDS: PANTOPRAZOLE DR 20 MG TABLET PO (05:49)
[2021-05-23 07:00] VITALS: BP 112/59; PULSE 81; RESP 12; TEMP 37.3; O2SAT 95
[2021-05-23 08:45] VITALS: BP 112/59; PULSE 81
[2021-05-23] MEDS: lisinopriL 20 MG TABLET 40 MG PO (08:45)
[2021-05-23] MEDS: predniSONE 5 MG TABLET 10 MG PO (08:46)
[2021-05-23] MEDS: levETIRAcetam 250 MG TABLET 500 MG PO (08:46)
[2021-05-23] MEDS: TAMSULOSIN 0.4 MG CAPSULE PO (08:46)
[2021-05-23] MEDS: allopurinoL 300 MG TABLET PO (08:47)
[2021-05-23] MEDS: SODIUM CHLORIDE 0.9% FLUSH 10 ML IV (08:47)
[2021-05-23] MEDS: DOCUSATE 100 MG CAPSULE PO (08:47)
--- NOTE | 2021-05-23 09:37 | OT.IP.TRT ---
Current Diagnoses Other secondary scoliosis, lumbar region (05/21/21) Spondylolisthesis, site unspecified (05/21/21) Spinal stenosis, lumbar region with neurogenic claudication (05/21/21) Surgery Performed Operation Date: 05/20/21 07:45 Actual Procedures p L2-3, L3-4, L4-5, L5-S1 TLIF w. posterior instrumentation-Robot - Guru Flores MD Occupational Therapy Treatment Note M2 OT-IP Current Condition Start: 05/21/21 13:31 Freq: Status: Active Protocol: Document 05/21/21 13:32 [facility] (Rec: 05/21/21 13:48 [facility] [id number]) Occupational Therapy Current Condition Current Condition Evaluation Date 05/21/21 Treatment Diagnosis S/p L2-3,L3-4,L4-5, L5-S1 TLIF , decreased mobility Diagnosis Onset Date 05/20/21 Post Operative Precautions Lumbar Precautions Log Roll,No Twisting,Limit Bending,Lifting Restriction of 10 lbs,Gait Belt above Incisional Area M3 OT- IP Subjective and Pain Start: 05/21/21 13:31 Freq: Status: Active Protocol: Document 05/23/21 09:41 [facility] (Rec: 05/23/21 09:48 [facility] [id number]) OT- Subjective Occupational Therapy Visit Type Type Treatment Note Visit Start Time 09:15 Visit Stop Time 09:37 Total Visit Minutes 12 Occupational Therapy Visit Comments Patient Comments Pt agreed to get up to do grooming needs and pt's agreed to do caregiver training. Patient/Caregiver Goals TO go home. OT Pain Assessment Pain When Pain Assessed At Rest Pain Present Pain Present Denied Pain M4 OT- IP ADL's Start: 05/21/21 13:31 Freq: Status: Active Protocol: Document 05/23/21 09:41 [facility] (Rec: 05/23/21 09:48 [facility] [id number]) OT [id number] Comments OT Self-Feeding Comments Set-up OT ADL-Grooming General Evaluation Grooming Ability Standby Assistance Areas Needing Assistance Retrieving/Set-up of Grooming Items OT ADL-Oral Care General Eval Oral Care Ability Standby Assistance Areas of Assistance Retrieving/Set-Up of Items Comments Oral Care Comments Pt able to appropriately hinge at his hips to spit into the sink. OT ADL-Dressing General Eval Lower Body Dressing Ability Minimal Assistance Areas Needing Assistance Socks Comments OT Dressing Comments Pt needing review again how to use senior storage administrator and sock aid and needing LELO to help get his foot initially into the sock aid as has a wide foot, pt would benefit from a wide sock aid. OT ADL-Toileting Comments OT Toileting Comments Pt not having to go, per chart pt having urinary retention. M6 OT- IP Functional Cognition Start: 05/21/21 13:31 Freq: Status: Active Protocol: Document 05/23/21 09:41 [facility] (Rec: 05/23/21 09:48 [facility] [id number]) Cognitive Factors Limiting Selfcare Function Cognitive Ability Level of Alertness Alert Patient Orientation Name,Place,Situation Attention Span Ability Capable of Focused Attention, Capable of Sustained Attention Ability to Follow Commands Able to Follow One Step Commands with Increased Time, Able to Follow One Step Commands with Repetition Cognitive Comments Cognitive Assessment Comments Pt needing reminders for hand placement and FWW use from his . M7 OT- IP Mobility and Balance Start: 05/21/21 13:31 Freq: Status: Active Protocol: Document 05/23/21 09:41 [facility] (Rec: 05/23/21 09:48 [facility] [id number]) OT-Transfer Assessment Sit to and From Stand Sit to and from Stand Minimal Assistance Transfers Transfer Ability Standby Assistance,Contact Guard Assistance Technique Transfer Destination Chair Transfer Technique Stand Step Pivot Devices Transfer Assistive Devices Gait Belt,Front Wheeled Walker OT- Balance Assessment Sitting Balance and Reactions Static Sitting Balance Ability Good Dynamic Sitting Balance Ability Fair Standing Balance and Reactions Static Standing Balance Ability Fair M8 OT- IP Objective Assessments Start: 05/21/21 13:31 Freq: Status: Active Protocol: Document 05/21/21 13:32 [facility] (Rec: 05/21/21 13:48 [facility] [id number]) OT-Muscle Tone Assessment Muscle Tone WNL Yes M9 OT- IP Assessment and Plan Start: 05/21/21 13:31 Freq: Status: Active Protocol: Document 05/23/21 09:41 [facility] (Rec: 05/23/21 09:48 [facility] [id number]) OT Summary Assessment and Plan Potential Rehabilitation Potential Good Analytic Complexity at Evaluation Low Summary Progress Towards Goals Progressing Toward Goals Assessment Summary Pt having urinary retention and did not go home yesterday. Pt 's able to practice how to flakita/doff gait belt and go over again how to best assist pt for ADl and mobility needs. Pt to go home with 24/7 assist and home health when medically stable. Goals Grooming Goal Independent Dressing Goal Independent Toileting Goal Independent Bathing Goal Standby Assistance Toilet Transfer Goal Independent Shower Transfer Goal Independent Patient/Caregiver Education Goal Demonstrate Post-Op Precautions,Caregiver Independent Assisting Patient Days to Meet Goals 7 Frequency of Treatment Frequency Of Treatment Once a Day Discharge Recommendations OT Discharge Recommendations Home with 24/7 Assist Available,Home Health Transportation Needs at Discharge Private Vehicle
--- NOTE | 2021-05-23 11:00 | PT.IPTN ---
Current Diagnoses Other secondary scoliosis, lumbar region (05/21/21) Spondylolisthesis, site unspecified (05/21/21) Spinal stenosis, lumbar region with neurogenic claudication (05/21/21) Surgery Performed Operation Date: 05/20/21 07:45 Actual Procedures p L2-3, L3-4, L4-5, L5-S1 TLIF w. posterior instrumentation-Robot - Guru Flores MD Physical Therapy Treatment Note M2 PT-IP Current Condition Start: 05/21/21 08:28 Freq: NEEDED Status: Discharge Protocol: Document 05/23/21 11:13 RBD (Rec: 05/23/21 11:47 RBD [id number]) Physical Therapy Current Condition Current Condition Evaluation Date 05/21/21 Treatment Diagnosis L2-S1 TLIF; difficulty in walking Onset Date 05/20/21 M3 PT-IP Subjective Start: 05/21/21 08:28 Freq: NEEDED Status: Discharge Protocol: Document 05/23/21 11:13 RBD (Rec: 05/23/21 11:47 RBD [id number]) Subjective Physical Therapy Visit Type Type Treatment Note Visit Start Time 10:43 Visit Stop Time 11:00 Total Visit Minutes 17 Notes in room upon arrival. Number of DIE SIZER Visits 2 Physical Therapy Visit Comments Patient Comments Pt is willing to participate with PT. Patient Goals Return home with spouse support. Therapy Pain Assessment Pain When Pain Assessed During Mobility Pain Present Pain Present Pain Reported Location back Intensity 4 Scale Used Numeric (0 - 10) Description With Movement Pain Behaviors Facial Grimacing Pain Management Techniques Distraction,Modification of Treatment,Re-positioning, Timing of Activity with Medications M4 PT-IP Mobility and Gait Start: 05/21/21 08:28 Freq: NEEDED Status: Discharge Protocol: Document 05/23/21 11:13 RBD (Rec: 05/23/21 11:47 RBD [id number]) PT-Bed Mobility Assessment Rolling Type of Rolling Log Rolling,Roll to Left Level of Assist Moderate Assistance,1 Person Assistance Supine to Sit Supine to Sit Minimal Assistance,1 Person Assistance Sit to Supine Sit to Supine Moderate Assistance,1 Person Assistance Scooting Scooting to Edge of Bed Contact Guard Assistance PT-Transfer Assessment Sit to and From Stand Sit to and from Stand Contact Guard Assistance,1 Person Assistance,Use of Upper Extremities Equipment Transfer Assistive Device Gait Belt,Front Wheeled Walker Orthotic/Prosthetic Devices or Brace: No Transfers Transfer Destination Bed Transfer Technique pt ambulated with FWW Transfer Ability Level of Assist Contact Guard Assistance, Minimal Assistance Comments Mobility Comments Pt was supine in bed as DIE SIZER arrived. Completed LR to L w/ Min A. SL to sit Mod A for LE managemnt and he used UE support. Seated EOB SBA. Ambulated ~ 212 feet CGA and retuned to sitting EOB. Mod A cueing required for spinal precaustions when sitting and bed mobility. Mod A sit to SL and Log roll. Once suipne He required Mod A to adjust position in bed. Pt left in bed w/ all needs in reach. Gait Assessment Gait Gait Assistance Required: Contact Guard Assist,1 Person Assist Distance (Feet) 212 Able to Maintain Weight Bearing Status Yes During Gait Assistive Devices Assistive Device Gait Belt,Front Wheeled Walker Orthotic/Prosthetic Devices or Brace: No Gait Deviations General Gait Pattern Antalgic,Decreased Stride Length,Decreased Feet Clearance,Step-to Gait Factors Limiting Gait Function Factors Limiting Gait Function Decreased Activity Tolerance, Decreased Strength,Limited Range of Motion,Pain,Poor Balance,Poor Safety Awareness Comments Gait Comments Pt required Min A cueing for walker management and Step to gait when ambulationg w/ FWW. Stair Climbing Assessment Comments Stair Climbing Comments Did not perform PT-Balance Assessment Sitting Balance and Reactions Static Sitting Balance Ability Good Dynamic Sitting Balance Ability Good Standing Balance and Reactions Static Standing Balance Ability Good Dynamic Standing Balance Ability Fair Device Used FWW M5 PT-IP Objective Assessments Start: 05/21/21 08:28 Freq: NEEDED Status: Discharge Protocol: Document 05/21/21 11:35 AW (Rec: 05/21/21 13:07 AW [id number]) Orientation Orientation/Cognition Level of Alertness Alert Orientation Name,Day of Week,Place, Situation Language Function Ability No Deficits Noted Safety Awareness Decreased Safety Awareness Comments Safety awareness likely affected by pain medication. Gross Range of Motion Lower Extremity ROM Assessment Within Functional Limits Strength Lower Extremity Strength Assessment Bilaterally Impaired Hip 4/5 Knee 4/5 Ankle 4-/5 Sensation Assessment Sensation Gross Sensation WNL Muscle Tone Muscle Tone WNL Yes M6 PT-IP Treatment Start: 05/21/21 08:28 Freq: NEEDED Status: Discharge Protocol: Document 05/23/21 11:13 RBD (Rec: 05/23/21 11:47 RBD [id number]) Physical Therapy Treatment Exercises Exercises Seated Knee Flexion/Extension Education Education Provided Precautions,Weight Bearing Status,Post-Op Packet,Safety Other Treatments Other Treatment Performed Pt able to recall 2/3 precauations and min cueing for bending precaution. Spouse able to recall all precuaseions w/o cueing. Performed LAQ and seat marches on EOB. M7 PT-IP Assessment and Plan Start: 05/21/21 08:28 Freq: NEEDED Status: Discharge Protocol: Document 05/23/21 11:13 RBD (Rec: 05/23/21 11:47 RBD [id number]) PT Summary Assessment and Plan Potential Rehabilitation Potential Good Status of Condition at Evaluation Evolving Summary Impairments Pain,ROM,Strength,Balance, Cognition,Bed Mobility, Transfers,Gait,Activity Tolerance Assessment Summary Pt is Min to Mod A for bed moblily. He CGA for ambulation w/ FWW. He required Min cueing for precausetions. Would benifit from 30/08 from spouse and HHPT to improve strenght and mobility. Goals Bed Mobility Goal Standby Assistance Transfer Goal Standby Assistance,Front Wheeled Walker Gait Goal Standby Assistance,Front Wheel Walker Gait Distance 150 Other Goals -- up/down platform step x 1 with FWW CGA Days to Meet Goals 5 Frequency of Treatment Frequency Of Treatment Twice a Day Treatment Plan Physical Therapy Treatment Plan Bed Mobility Training,Transfer Training,Gait Training, Therapeutic Exercise,Balance Retraining,Post Op Education, Discharge Planning,Hot or Cold Pack,Neuromuscular Re-ed Other Recommendations and Next Treatment Bed mob, transfers w/FWW, Focus Balance activities. Precautions Lumbar Precautions Log Roll,No Twisting,Limit Bending,Lifting Restriction of 10 lbs,Gait Belt above Incisional Area Recommendations To Nursing Amount of Assist Needed 1 Person Assist Discharge Recommendations PT Discharge Recommendations Home with 30/08 Assist Available,Home Health Transportation Needs at Discharge Private Vehicle
--- NOTE | 2021-05-23 11:29 | PC.NURSE ---
Patient A&O x4, d/c instructions reviewed with spouse and patient. All questions and concerns addressed. Meds sent to [facility], pt aware. IV removed, pt. alayna. well. VSS. Patient ambulated to w/ FWW. Escorted down to personal vehicle where spouse was waiting. Patient left in stable condition. Drg. CDI.
--- NOTE | 2021-05-23 12:57 | CM.DPC ---
DCP Discharge Home with HH Per MD, pt's discharge from yesterday was cancelled due to pt's inability to void independently. Per RN, pt had to be straight cath'd middle of the night but was then able to void independently this morning after receiving medication yesterday and discharge instructions given and spouse provided transport home and no concerns at this time. Previous DCP had faxed Sig pt's signed F2Yon, orders, and d/c summary yesterday anticipating he would d/c yesterday. Sig HH updated that pt now discharged to home today and left via spouse POV. Plan: Patient discharged this morning via spouse POV and Sig to follow after d/c for HH RN/PT. Helen Marrufo MSW
== END 2021-05-23 11:31 | disposition home or self-care (01) ==
LOC: OR 15:07 → ICU 15:07 → AC 05-22 14:42
PROVIDERS: Admitting Provider Orthopaedic Surgery Orthopaedic Surgery of the Spine; PCP Internal Medicine; Referring Provider Orthopaedic Surgery Orthopaedic Surgery of the Spine; Visit Provider Orthopaedic Surgery Orthopaedic Surgery of the Spine
PROC: (CPT 22633; principal; 2021-05-20 07:45)
DX: M48.062 Spinal stenosis, lumbar region with neurogenic claudication (principal); M47.26 Other spondylosis with radiculopathy, lumbar region; M41.56 Other secondary scoliosis, lumbar region; I25.10 Atherosclerotic heart disease of native coronary artery without angina pectoris; I25.2 Old myocardial infarction; J45.20 Mild intermittent asthma, uncomplicated; J32.8 Other chronic sinusitis; Z79.51 Long term (current) use of inhaled steroids; I10 Essential (primary) hypertension; E78.5 Hyperlipidemia, unspecified
CPT/HCPCS: 22633; 22634 ×3; 22853 ×4; 22842; 63052; 63053 ×3; 20939; 36415; 72100; 76000; 85014; 85018; 97116; 97162; 97165; 97530; 97535; G0378; C1713; C9290; J0171; J0330; J0690; J1100; J1170; J1720; J2250; J2405; J2704; J3010; J3410

== ENCOUNTER 2021-09-30 14:09 | Inpatient (IN) | payer OTHER, MEDICARE, SELFPAY ==
[2021-05-20 06:42] VITALS: BMI 25.8
[2021-09-30] VITALS (14 sets, daily range): BP systolic 92–134; BP diastolic 58–77; PULSE 72–98; RESP 15–21; TEMP 37.5; O2SAT 97–100; BMI 23.3
--- NOTE | 2021-09-30 14:20 | DI.RAD.S_ITS ---
PROCEDURE: XR CHEST 1V INDICATIONS: suspected sepsis TECHNIQUE: One view of the chest was acquired. COMPARISON: [facility], CR, XR CHEST 2V, 12/23/2020, 9:56. FINDINGS: Surgical changes and devices: None. Lungs and pleura: Lungs are clear. No pleural effusions or pneumothorax. Mediastinum: Mediastinal contours appear normal. Heart size is normal. Bones and chest wall: No suspicious bony lesions. Overlying soft tissues appear unremarkable. IMPRESSION: No acute process. Dictated by: Adeline Garcia M.D. on 09/30/2021 at 15:02 Approved by: Adeline Garcia M.D. on 09/30/2021 at 15:02
[2021-09-30] MEDS: SODIUM CHLORIDE 0.9% 1,000 ML 1000 ML IV (14:26)
[2021-09-30] MEDS: SODIUM CHLORIDE 0.9% 716.68 ML IV (14:45)
[2021-09-30 14:46] LABS: Add Manual Diff / Slide Review NO; Basophils Absolute Auto 200 /uL (0-100); Eosinophils Absolute Auto 300 /uL (0-450); Hematocrit 41.8 % (41-53); Hemoglobin 14.3 g/dL (13.5-17.5); Lymphocytes Absolute Auto 2200 /uL (1100-4500); Lymphocytes Percent Auto 13.9 % (25-40); Mean Corpuscular HGB Conc 34.3 % (30-36); Mean Corpuscular Hemoglobin 31.5 PG (26-34); Mean Corpuscular Volume 91.8 fL (80-100); Monocytes Absolute Auto 400 /uL (0-900); Monocytes Percent Auto 2.7 % (3-14); Neutrophils Absolute Auto 12900 /uL (1500-7000); Neutrophils Percent Auto 80.4 % (50-75); Platelet Count 187 X10^3/uL (150-400); Red Blood Cell Count 4.55 X10^6/uL (4.5-5.9); Red Cell Distribution Width 16.7 % (11.6-14.8); White Blood Cell Count 16.1 X10^3/uL (4.5-11.0)
[2021-09-30 14:57] LABS: PTT Partial Thromboplastin Tim 30 SECONDS (26-36)
[2021-09-30 14:58] LABS: Alanine Aminotransferase 18 IU/L (<50); Albumin 3.9 g/dL (3.5-5.0); Albumin Globulin Ratio 1.3 (1.0-2.8); Alkaline Phosphatase 70 U/L (38-126); Aspartate Aminotransferase 26 IU/L (17-59); BUN Creatinine Ratio 20.4 (6-22); Bilirubin Total 0.7 mg/dL (0.2-1.3); Blood Urea Nitrogen 22 mg/dL (9-20); Calcium 8.5 mg/dL (8.4-10.2); Carbon Dioxide 27 mmol/L (22-32); Chloride 101 mmol/L (98-107); Estimated Glomerular Filt Rate > 60 mL/min (>60); Glucose 136 mg/dL (80-110); HEMOLYSIS < 15 (0-50); Lipase 85 U/L (23-300); Potassium 3.9 mmol/L (3.4-5.1); Sodium 136 mmol/L (137-145); Total Protein 6.9 g/dL (6.3-8.2)
[2021-09-30 15:00] LABS: Lactate (Lactic Acid) 1.2 mmol/L (0.7-2.1)
--- NOTE | 2021-09-30 15:02 | ED_ITS ---
HPI - Skin/Abscess/Foreign Bdy General Chief complaint: Skin/Abscess/Foreign Body Stated complaint: LT. elbow swollen post op Time Seen by Provider: 09/30/21 14:43 Source: patient Mode of arrival: Ambulatory Limitations: no limitations History of Present Illness HPI narrative: Patient is a 66-year-old male history of hyperlipidemia recent left elbow surgery for gout as an outpatient with Dr. Mckee on 09/17/2021. Presents today with low-grade fever and increased elbow pain and swelling. He says he woke up this morning with a temperature 100.2?. Yesterday they started to notice some swelling is some drainage. This morning he was really unable to bend it due to the swelling, however this improved throughout the day. He the came to the ED for further evaluation. Related Data Home Medications Medication Instructions Recorded Confirmed albuterol sulfate 90 mcg/actuation 2 puff inhalation Q4-6H PRN 12/05/20 05/20/21 aerosol inhaler Shortness Of Breath aspirin 81 mg tablet,delayed 81 mg PO DAILY 09/30/21 09/30/21 release indomethacin 25 mg capsule 25 mg PO PRN PRN Gout 09/30/21 09/30/21 Previous Rx's Medication Instructions Recorded omeprazole 20 mg tablet,delayed 20 mg PO DAILY #90 tabs 11/12/19 release atorvastatin 80 mg tablet 80 mg PO HS #90 tabs 01/19/21 lisinopril 40 mg tablet 40 mg PO QDAY #90 tabs 01/29/21 Disabled Parking #1 ea 03/17/21 levetiracetam 500 mg tablet 500 mg PO DAILY #90 tabs 06/26/21 prednisone 10 mg tablet 10 mg PO DAILY #90 tabs 09/07/21 probenecid 500 mg tablet 250 mg PO BID #60 tabs 09/07/21 Allergies Allergy/AdvReac Type Severity Reaction Status Date / Time No Known Drug Allergies Allergy Verified 09/30/21 14:16 Review of Systems Review of Systems Narrative: GENERAL: +fever HEENT: Denies sinus pain, ear pain, sore throat, difficulty swallowing, neck pain RESPIRATORY: Denies dyspnea, cough, wheezing, hemoptysis, sputum. CARDIOVASCULAR: Denies chest pain, palpitations, orthopnea, edema GASTROINTESTINAL: Denies nausea, vomiting, abdominal pain, diarrhea, constipation, melena. : Denies dysuria, frequency, incontinence, hematuria, urinary retention, flank pain. MUSCULOSKELETAL: Denies weakness, joint pain, or bony pain SKIN: See HPI NEUROLOGIC: Denies weakness, dizziness, headache, numbness, change in speech, confusion PSYCHIATRIC: No concerning psychosocial issues. 12 point review of systems is negative except for those stated above and HPI Patient History Medical History BPH w urinary obs/LUTS CAD (coronary artery disease) Cerebrovascular accident (CVA) (05/29/13) Chronic back pain Chronic rhinosinusitis Complex partial seizure disorder Easy bruisability Enlarged prostate Essential hypertension (06/01/16) GERD (gastroesophageal reflux disease) Gout Gout, chronic (01/26/11) HTN (hypertension) Mixed hyperlipidemia (06/23/16) Non-STEMI (non-ST elevated myocardial infarction) (06/2009) Osteopenia Steroid-dependent asthma Unspecified asthma (01/26/11) Surgical History Hx of LASKIM Hx of sinus surgery S/P shoulder surgery (02/07/20) Status post arthroscopy (2002) Status post cardiac catheterization (06/2009) Social History household members: spouse Smoking Status: Never smoker alcohol intake: current Smoking Status: Never smoker alcohol intake frequency: 3 or more drinks per day Substance Use Type: does not use Exam Initial Vital Signs Initial Vital Signs: Vital Signs Temperature 99.5 F 09/30/21 14:16 Pulse Rate 98 H 09/30/21 14:16 Respiratory Rate 15 09/30/21 14:16 Blood Pressure 103/66 09/30/21 14:16 Pulse Oximetry 97 09/30/21 14:16 Oxygen Delivery Method 09/30/21 14:16 GENERAL: Alert 66-year-old male appears well HEENT: Head atraumatic,EOMI, pupils reactive, face symmetric, moist mucous membranes CARDIOVASCULAR: Regular rate and rhythm without murmurs, rubs or gallops. RESPIRATORY: Breath sounds equal bilaterally, no wheezes rales or rhonchi. ABDOMEN: Soft, nontender. Normoactive bowel sounds all 4 quadrants. No guarding or rebound. EXTREMITIES: Normal range of motion, no clubbing or edema. Neurovascularly intact NEUROLOGICAL: Alert and oriented x4.Normal gait and speech. SKIN: Left elbow incisions sites to a crooks 9 cm x 6 cm otherwise some clear drainage but unable to reproduce again. Mild erythema Course Orders Ordered: ED Orders 09/30/21 14:20 XR chest 1V Stat EKG-12 Lead Stat RT Consult Eval and Treat NOW 09/30/21 14:30 Complete Blood Count AUTO DIFF Stat Comprehensive Metabolic Panel Stat Lactate (Lactic Acid) Stat Lipase Stat Partial Thromboplastin Time Stat Procalcitonin Stat Prothrombin Time INR Stat 09/30/21 14:41 Blood Culture Stat 09/30/21 15:06 XR elbow LT min 3V Stat 09/30/21 15:26 CRP [C-Reactive Protein Quant] Stat ESR [Erythrocyte Sedimentation Rate] Stat 09/30/21 16:42 Wound Culture and Gram Stain Stat 09/30/21 17:55 Consult to Orthopedic Surgery Stat Discontinued Medications Sodium Chloride (Normal Saline 0.9%) 1,000 mls @ 1,000 mls/hr IV BOLUS ONE Stop: 09/30/21 15:18 Last Infusion: 09/30/21 15:45 Dose: 0 mls/hr Documented By: Admin: 09/30/21 14:26 Dose: 1,000 mls/hr Documented By: HILARIA Sodium Chloride (Normal Saline 0.9%) 2,150.04 mls @ 716.68 mls/hr 30 ml/kg infuse over 3 hr (2150.04 ml) IV NOW ONE Stop: 09/30/21 18:05 Last Infusion: 09/30/21 18:13 Dose: 0 mls/hr Documented By: Admin: 09/30/21 14:45 Dose: 716.68 mls/hr Documented By: RJ Ceftriaxone Sodium 2,000 mg/ (Sodium Chloride) 100 mls @ 200 mls/hr IV NOW ONE Stop: 09/30/21 16:40 Last Infusion: 09/30/21 17:57 Dose: 0 mls/hr Documented By: Admin: 09/30/21 17:15 Dose: 200 mls/hr Documented By: EDUARDO Vital Signs Vital signs: Vital Signs - 8 hr 09/30/21 14:16 09/30/21 14:44 09/30/21 15:00 Temperature 99.5 F Pulse Rate 98 H 86 Respiratory Rate 15 Blood Pressure 103/66 92/58 L Pulse Oximetry 97 97 Oxygen Delivery Method Room Air 09/30/21 15:00 09/30/21 15:06 09/30/21 15:06 Temperature Pulse Rate 80 82 Respiratory Rate 15 20 Blood Pressure 95/62 Pulse Oximetry 97 98 Oxygen Delivery Method 09/30/21 15:30 09/30/21 15:30 09/30/21 16:00 Temperature Pulse Rate 80 Respiratory Rate 19 Blood Pressure 95/59 L 95/60 Pulse Oximetry 98 Oxygen Delivery Method 09/30/21 16:00 09/30/21 16:30 09/30/21 16:30 Temperature Pulse Rate 78 74 Respiratory Rate 17 18 Blood Pressure 99/76 Pulse Oximetry 100 100 Oxygen Delivery Method 09/30/21 16:54 09/30/21 16:54 09/30/21 17:00 Temperature Pulse Rate 73 Respiratory Rate 16 Blood Pressure 116/73 115/72 Pulse Oximetry 100 Oxygen Delivery Method 09/30/21 17:00 09/30/21 17:30 09/30/21 17:30 Temperature Pulse Rate 72 73 Respiratory Rate 15 19 Blood Pressure 118/72 Pulse Oximetry 100 99 Oxygen Delivery Method MDM - Skin/Abscess/Foreign Bdy Lab Data Result diagrams: 09/30/21 14:30 09/30/21 14:30 Labs: Lab Results 09/30/21 09/30/21 09/30/21 Range/Units 14:30 14:30 14:30 WBC 16.1 H (4.5-11.0) X10^3/uL RBC 4.55 (4.5-5.9) X10^6/uL Hgb 14.3 (13.5-17.5) g/dL Hct 41.8 (41-53) % MCV 91.8 (80-100) fL MCH 31.5 (26-34) PG MCHC 34.3 (30-36) % RDW 16.7 H (11.6-14.8) % Plt Count 187 (150-400) X10^3/uL Neut % (Auto) 80.4 H (50-75) % Lymph % (Auto) 13.9 L (25-40) % Henderson % (Auto) 2.7 L (3-14) % Eos % (Auto) 2.0 (2-4) % Baso % (Auto) 1.0 (0-2) % Neut # (Auto) 09278 H (9301-4174) /uL Lymph # (Auto) 2200 (8251-0816) /uL Henderson # (Auto) 400 (0-900) /uL Eos # (Auto) 300 (0-450) /uL Baso # (Auto) 200 H (0-100) /uL ESR (0-15) MM/HR PT 12.0 (10.1-12.7) SECONDS INR 1.0 (0.9-1.3) APTT 30 (26-36) SECONDS Sodium 136 L (137-145) mmol/L Potassium 3.9 (3.4-5.1) mmol/L Chloride 101 (98-107) mmol/L Carbon Dioxide 27 (22-32) mmol/L BUN 22 H (9-20) mg/dL Creatinine 1.08 (0.66-1.25) mg/dL Estimated GFR > 60 (>60) mL/min BUN/Creatinine Ratio 20.4 (6-22) Glucose 136 H (80-110) mg/dL Lactate (0.7-2.1) mmol/L Calcium 8.5 (8.4-10.2) mg/dL Total Bilirubin 0.7 (0.2-1.3) mg/dL AST 26 (17-59) IU/L ALT 18 (<50) IU/L Alkaline Phosphatase 70 (38-126) U/L C-Reactive Protein (<1.0) mg/dL Total Protein 6.9 (6.3-8.2) g/dL Albumin 3.9 (3.5-5.0) g/dL Globulin 3.0 (1.7-4.1) g/dL Albumin/Globulin Ratio 1.3 (1.0-2.8) Lipase 85 (23-300) U/L Procalcitonin 0.49 (<0.5) ng/mL 09/30/21 09/30/21 09/30/21 Range/Units 14:30 15:26 15:26 WBC (4.5-11.0) X10^3/uL RBC (4.5-5.9) X10^6/uL Hgb (13.5-17.5) g/dL Hct (41-53) % MCV (80-100) fL MCH (26-34) PG MCHC (30-36) % RDW (11.6-14.8) % Plt Count (150-400) X10^3/uL Neut % (Auto) (50-75) % Lymph % (Auto) (25-40) % Henderson % (Auto) (3-14) % Eos % (Auto) (2-4) % Baso % (Auto) (0-2) % Neut # (Auto) (4567-3441) /uL Lymph # (Auto) (6571-1825) /uL Henderson # (Auto) (0-900) /uL Eos # (Auto) (0-450) /uL Baso # (Auto) (0-100) /uL ESR 22 H (0-15) MM/HR PT (10.1-12.7) SECONDS INR (0.9-1.3) APTT (26-36) SECONDS Sodium (137-145) mmol/L Potassium (3.4-5.1) mmol/L Chloride (98-107) mmol/L Carbon Dioxide (22-32) mmol/L BUN (9-20) mg/dL Creatinine (0.66-1.25) mg/dL Estimated GFR (>60) mL/min BUN/Creatinine Ratio (6-22) Glucose (80-110) mg/dL Lactate 1.2 (0.7-2.1) mmol/L Calcium (8.4-10.2) mg/dL Total Bilirubin (0.2-1.3) mg/dL AST (17-59) IU/L ALT (<50) IU/L Alkaline Phosphatase (38-126) U/L C-Reactive Protein 3.9 H (<1.0) mg/dL Total Protein (6.3-8.2) g/dL Albumin (3.5-5.0) g/dL Globulin (1.7-4.1) g/dL Albumin/Globulin Ratio (1.0-2.8) Lipase (23-300) U/L Procalcitonin (<0.5) ng/mL Imaging Data Extremity x-ray #1: Radiologist's Impression: XRay Report Signed Patient: Sal Blount MR#: [id number] : 1955 Acct:[id number] Age/Sex: 66 / M Date of Service: 09/30/21 Loc: ED Accession Number: [id number] ?? Procedure: XR elbow LT min 3V Ordering Provider: Nahomy Kulkarni D.O. PROCEDURE:? XR ELBOW LT MIN 3V ? INDICATIONS:? post op swelling ? TECHNIQUE:? 3 views of the elbow were acquired.? ? COMPARISON:? None. ? FINDINGS:? ? Bones:? No fractures or dislocations.? No suspicious bony lesions.? ? Soft tissues:? No elbow joint effusion.? There is subtle increased density near the tendinous insertion of the olecranon.? There is mild swelling about the olecranon bursa.? No suspicious soft tissue calcifications.? No radiopaque foreign body. ? ? IMPRESSION:? No fracture or dislocation.? ? Swelling about the olecranon bursa.? Subtle increased density near the tendinous insertion at the olecranon.? Calcific tendinitis could have this appearance. ? ? Dictated by: Chepe Proctor M.D. on 09/30/2021 at 15:45 ? ? Approved by: Chepe Proctor M.D. on 09/30/2021 at 15:4 Chest x-ray: Radiologist's Impression: [place] [address] XRay Report Signed Patient: Sal Blount MR#: [id number] : 1955 Acct:[id number] Age/Sex: 66 / M Date of Service: 09/30/21 Loc: ED Accession Number: [id number] ?? Procedure: XR chest 1V Ordering Provider: Nahomy Kulkarni D.O. PROCEDURE:? XR CHEST 1V ? INDICATIONS:? suspected sepsis ? TECHNIQUE:? One view of the chest was acquired.? ? COMPARISON:? [facility], TIANA, XR CHEST 2V, 12/23/2020, 9:56. ? FINDINGS:? ? Surgical changes and devices:? None.? ? Lungs and pleura:? Lungs are clear.? No pleural effusions or pneumothorax.? ? Mediastinum:? Mediastinal contours appear normal.? Heart size is normal.? ? Bones and chest wall:? No suspicious bony lesions.? Overlying soft tissues appear unremarkable.? ? IMPRESSION:? No acute process. ? ? Dictated by: Adeline Garcia M.D. on 09/30/2021 at 15:02 ? ? [facility] Narrative Medical decision making narrative: Patient concerned for sepsis. Hypotensive with a blood pressure in the 90s not tachycardic found to have leukocytosis and obvious source of his left elbow excision. There is some drainage in some fluctuance possible seroma however with hypotension, low-grade fever leukocytosis concern for sepsis. 3pm-Dr. Alexander orthopedics consult. States he has not the original surgeon and happy to pass message 430pm-Dr. Mckee orthopedics updated patient's symptoms test results. States that it is unlikely to be a septic joint surgery did involve the joint itself. Suspects that it is all subcutaneous infection. Patient has a follow-up appoin tment with him this week, if patient is stable he is happy to see patient as an outpatient top bar out. Unfortunately patient is not stable with the hypotension. Patient actually responded really well to the sepsis fluids blood pressure improved. He is not tachycardic or febrile. Blood cultures and wound culture pending. Given 1 dose of Rocephin and. Dr. Mckee actually suggested Keflex. Dr. Romo kindly accepts patient , agrees that at this time the patient is no longer hypotensive and kids go to the medical floor. Discharge Plan Departure Patient Disposition: Admitted As Inpatient Clinical Impression: Sepsis Admit Date/Time: 09/30/21 17:57 Admit Provider: Gurjit Carrasco
--- NOTE | 2021-09-30 15:06 | DI.RAD.S_ITS ---
PROCEDURE: XR ELBOW LT MIN 3V INDICATIONS: post op swelling TECHNIQUE: 3 views of the elbow were acquired. COMPARISON: None. FINDINGS: Bones: No fractures or dislocations. No suspicious bony lesions. Soft tissues: No elbow joint effusion. There is subtle increased density near the tendinous insertion of the olecranon. There is mild swelling about the olecranon bursa. No suspicious soft tissue calcifications. No radiopaque foreign body. IMPRESSION: No fracture or dislocation. Swelling about the olecranon bursa. Subtle increased density near the tendinous insertion at the olecranon. Calcific tendinitis could have this appearance. Dictated by: Chepe Proctor M.D. on 09/30/2021 at 15:45 Approved by: Chepe Proctor M.D. on 09/30/2021 at 15:47
[2021-09-30 15:15] LABS: Procalcitonin 0.49 ng/mL (<0.5)
[2021-09-30 15:41] LABS: C-Reactive Protein Quant 3.9 mg/dL (<1.0)
[2021-09-30 15:55] LABS: Erythrocyte Sedimentation Rate 22 MM/HR (0-15)
[2021-09-30] MEDS: cefTRIAXone 2,000 MG in SODIUM CHLORIDE 0.9% 100 ML 200 MG IV (17:15)
[2021-09-30 19:56] LABS: COVID19 -Nasal RAPID Negative (Negative)
[2021-09-30] MEDS: cefTRIAXone 1,000 MG in SODIUM CHLORIDE 0.9% 100 ML 200 MG IV (20:54)
[2021-09-30] MEDS: ATORVASTATIN 20 MG TABLET 80 MG PO (22:53)
[2021-10-01 05:00] VITALS: BP 120/66; PULSE 66; RESP 20; TEMP 36.2; O2SAT 96
[2021-10-01 05:58] LABS: Add Manual Diff / Slide Review NO; Basophils Absolute Auto 200 /uL (0-100); Basophils Percent Auto 1.5 % (0-2); Eosinophils Absolute Auto 300 /uL (0-450); Eosinophils Percent Auto 1.9 % (2-4); Hematocrit 38.8 % (41-53); Hemoglobin 13.2 g/dL (13.5-17.5); Lymphocytes Absolute Auto 3400 /uL (1100-4500); Lymphocytes Percent Auto 20.1 % (25-40); Mean Corpuscular HGB Conc 34.1 % (30-36); Mean Corpuscular Hemoglobin 31.2 PG (26-34); Mean Corpuscular Volume 91.7 fL (80-100); Monocytes Absolute Auto 500 /uL (0-900); Monocytes Percent Auto 2.9 % (3-14); Neutrophils Absolute Auto 12300 /uL (1500-7000); Neutrophils Percent Auto 73.6 % (50-75); Platelet Count 169 X10^3/uL (150-400); Red Blood Cell Count 4.23 X10^6/uL (4.5-5.9); Red Cell Distribution Width 16.3 % (11.6-14.8); White Blood Cell Count 16.7 X10^3/uL (4.5-11.0)
[2021-10-01] MEDS: ACETAMINOPHEN 325 MG TABLET 650 MG PO ×2 (05:58→14:53)
[2021-10-01 06:12] LABS: BUN Creatinine Ratio 15.6 (6-22); Blood Urea Nitrogen 15 mg/dL (9-20); Calcium 7.5 mg/dL (8.4-10.2); Carbon Dioxide 27 mmol/L (22-32); Chloride 102 mmol/L (98-107); Estimated Glomerular Filt Rate > 60 mL/min (>60); Glucose 95 mg/dL (80-110); HEMOLYSIS < 15 (0-50); Potassium 3.9 mmol/L (3.4-5.1); Sodium 134 mmol/L (137-145)
--- NOTE | 2021-10-01 06:42 | PM.HP.1 ---
History of Present Illness History of Present Illness Date Patient Seen: 10/01/21 Time Patient Seen: 06:43 Chief complaint: LT. elbow swollen post op Narrative: 66-year-old male admitted via emergency department with infection in his left elbow. Underwent surgery on the left elbow on 09/17/2021. He had increasing elbow pain and low-grade fever with maximum of 100.2. Day prior to admission noticed some increased swelling with some drainage. I the time he presented to the emergency department he was unable to bend because of pain. Came to the ER for evaluation In the ER he was found to be modestly hypotensive with leukocytosis and obvious at least subcutaneous infection in the skin around the elbow Orthopedic surgery was consulted who felt like he could probably go home except for his vital signs and suggested he be admitted to the medical service. By the time patient left emergency department his vital signs it stabilized after some IV fluids etcetera. Patient History Medical History BPH w urinary obs/LUTS CAD (coronary artery disease) Cerebrovascular accident (CVA) (05/29/13) Chronic back pain Chronic rhinosinusitis Complex partial seizure disorder Easy bruisability Enlarged prostate Essential hypertension (06/01/16) GERD (gastroesophageal reflux disease) Gout Gout, chronic (01/26/11) HTN (hypertension) Mixed hyperlipidemia (06/23/16) Non-STEMI (non-ST elevated myocardial infarction) (06/2009) Osteopenia Steroid-dependent asthma Unspecified asthma (01/26/11) Surgical History Hx of LASIK Hx of sinus surgery S/P shoulder surgery (02/07/20) Status post arthroscopy (2002) Status post cardiac catheterization (06/2009) Family & Social History Social History: household members spouse,children Prior Living Arrangements House Safety & Behavioral: Feels Safe in Current Yes Environment Been Physically Hurt or No Threatened By a Person Tobacco & Substance use: Smoking Status Never smoker alcohol intake current alcohol intake frequency 3 or more drinks per day Substance Use Type does not use Meds Home Medications and Allergies Home Medications Medication Instructions Recorded Confirmed Type omeprazole 20 mg tablet,delayed 20 mg PO DAILY #90 tabs 11/12/19 09/30/21 Rx release albuterol sulfate 90 mcg/actuation 2 puff inhalation Q4-6H PRN 12/05/20 09/30/21 History aerosol inhaler Shortness Of Breath atorvastatin 80 mg tablet 80 mg PO HS #90 tabs 01/19/21 09/30/21 Rx lisinopril 40 mg tablet 40 mg PO QDAY #90 tabs 01/29/21 09/30/21 Rx Disabled Parking #1 ea 03/17/21 09/30/21 Rx levetiracetam 500 mg tablet 500 mg PO DAILY #90 tabs 06/26/21 09/30/21 Rx prednisone 10 mg tablet 10 mg PO DAILY #90 tabs 09/07/21 09/30/21 Rx probenecid 500 mg tablet 250 mg PO BID #60 tabs 09/07/21 09/30/21 Rx aspirin 81 mg tablet,delayed 81 mg PO DAILY 09/30/21 09/30/21 History release indomethacin 25 mg capsule 25 mg PO PRN PRN Gout 09/30/21 09/30/21 History Allergies Allergy/AdvReac Type Severity Reaction Status Date / Time No Known Drug Allergies Allergy Verified 09/30/21 14:16 Review of Systems Review of Systems ROS: Yes All systems reviewed with the patient and are negative except as otherwise documented Exam Vital Signs (past 8 hours): - 10/01/21 05:00 Temperature 97.1 F L Pulse Rate 66 Respiratory Rate 20 Blood Pressure 120/66 Pulse Oximetry 96 Oxygen Flow Rate 0 Oxygen Delivery Method Room Air Oxygen Flow Rate 0 Narrative Exam Narrative: Middle-aged male who looks older than stated age in no obvious distress lying in hospital bed HEENT-unremarkable Neck-no bruits Lungs-clear with good breath sounds Heart-regular rate and rhythm no murmur Abdomen-benign, positive bowel tones nontender nondistended Extremities-diffusely swollen left elbow area from mid humeral shaft to mid forearm, incision over olecranon process intact with Steri-Strips with mild diffuse erythema no fluctuance no tenderness to palpation no obvious fluid collection etcetera. Patient with limited passive and active flexion at the elbow Objective Labs Result Diagrams: 10/02/21 05:07 10/02/21 05:07 Labs: Laboratory Results - last 24 hr 09/30/21 09/30/21 09/30/21 14:30 14:30 14:30 WBC 16.1 H RBC 4.55 Hgb 14.3 Hct 41.8 MCV 91.8 MCH 31.5 MCHC 34.3 RDW 16.7 H Plt Count 187 Neut % (Auto) 80.4 H Lymph % (Auto) 13.9 L [place] % (Auto) 2.7 L Eos % (Auto) 2.0 Baso % (Auto) 1.0 Neut # (Auto) 08652 H Lymph # (Auto) 2200 [place] # (Auto) 400 Eos # (Auto) 300 Baso # (Auto) 200 H ESR PT 12.0 INR 1.0 APTT 30 Sodium 136 L Potassium 3.9 Chloride 101 Carbon Dioxide 27 BUN 22 H Creatinine 1.08 Estimated GFR > 60 BUN/Creatinine Ratio 20.4 Glucose 136 H Lactate Calcium 8.5 Total Bilirubin 0.7 AST 26 ALT 18 Alkaline Phosphatase 70 C-Reactive Protein Total Protein 6.9 Albumin 3.9 Globulin 3.0 Albumin/Globulin Ratio 1.3 Lipase 85 Procalcitonin 0.49 SARS-CoV-2 (PCR) 09/30/21 09/30/21 09/30/21 14:30 15:26 15:26 WBC RBC Hgb Hct MCV MCH MCHC RDW Plt Count Neut % (Auto) Lymph % (Auto) [place] % (Auto) Eos % (Auto) Baso % (Auto) Neut # (Auto) Lymph # (Auto) [place] # (Auto) Eos # (Auto) Baso # (Auto) ESR 22 H PT INR APTT Sodium Potassium Chloride Carbon Dioxide BUN Creatinine Estimated GFR BUN/Creatinine Ratio Glucose Lactate 1.2 Calcium Total Bilirubin AST ALT Alkaline Phosphatase C-Reactive Protein 3.9 H Total Protein Albumin Globulin Albumin/Globulin Ratio Lipase Procalcitonin SARS-CoV-2 (PCR) 09/30/21 10/01/21 10/01/21 19:10 05:28 05:28 WBC 16.7 H RBC 4.23 L Hgb 13.2 L Hct 38.8 L MCV 91.7 MCH 31.2 MCHC 34.1 RDW 16.3 H Plt Count 169 Neut % (Auto) 73.6 Lymph % (Auto) 20.1 L [place] % (Auto) 2.9 L Eos % (Auto) 1.9 L Baso % (Auto) 1.5 Neut # (Auto) 74229 H Lymph # (Auto) 3400 [place] # (Auto) 500 Eos # (Auto) 300 Baso # (Auto) 200 H ESR PT INR APTT Sodium 134 L Potassium 3.9 Chloride 102 Carbon Dioxide 27 BUN 15 Creatinine 0.96 Estimated GFR > 60 BUN/Creatinine Ratio 15.6 Glucose 95 Lactate Calcium 7.5 L Total Bilirubin AST ALT Alkaline Phosphatase C-Reactive Protein Total Protein Albumin Globulin Albumin/Globulin Ratio Lipase Procalcitonin SARS-CoV-2 (PCR) Negative Assessment & Plan Assessment & Plan narrative: 1. Cellulitis-patient placed on parental antibiotics. Cultures have been obtained both blood cultures and wound cultures. Patient may or may not have been septic upon admission with hypotension etcetera. This is resolved nicely with IV fluids. He is maintained his blood pressure adequately. No evidence abscess or obvious wound dehiscence or wound infection at this point. I suggest continue with IV antibiotics for another 24 hours or for least 24+ hours and then consider discharge with outpatient oral antibiotics, assuming patient remains clinically stable to improved. Ortho also to see patient this morning as per ER notes 2. History seizure disorder-continue patient's usual seizure medications 3. Gout-continue patient's probenecid for now 4. History of coronary disease-continue patient's usual medications 5. Hypertension-patient's normally on lisinopril, I am going to hold that this morning but if numbers go up can re-initiate comment will plan to restart tomorrow 6. Steroid dependent asthma-continue patient's prednisone for now. Given his improvement already is not clear that he is actually requiring stress dose steroids but that would be something to remember if his clinical course suggest he is having an element of adrenal insufficiency 7. VTE prophylaxis-SCDs 8. Code status-full code Time Spent With Patient Critical Care time: I spent a total of [] minutes of critical care time on this patient's care today; this time is exclusive of procedural time.
[2021-10-01] MEDS: ENOXAPARIN 40 MG/0.4 ML SYRINGE SUBCUT (09:38)
[2021-10-01] MEDS: levETIRAcetam 250 MG TABLET 500 MG PO (09:38)
[2021-10-01] MEDS: predniSONE 5 MG TABLET 10 MG PO (09:38)
[2021-10-01] MEDS: PROBENECID 500 MG TABLET 250 MG PO ×2 (09:39→20:08)
[2021-10-01] MEDS: PANTOPRAZOLE DR 20 MG TABLET PO (09:42)
--- NOTE | 2021-10-01 11:18 | CM.DANOTE ---
DCP Assessment: Payor: Gonzalo PCP: MD Yanet Pt is a 66 y.o. M who presented to the ED following a recent L elbow surgery for gout with Dr. Mckee on 09/17. Pt presented with a low-grade fever and pain and swelling. Pt stated that he woke up and had a fever and noticed some swelling and drainage. Pt was unable to bend it in the morning but improved throughout the day. Pt was admitted to the floor for possible sepsis and hypotensive episodes. Dr. Mckee was consulted and updated and he was OK with discharging the pt if medically stable and seeing him in the clinic as an outpatient, as the pt has an appointment with Dr. Mckee this week. Pt unable to discharge due to hypotension. Pt admitted to the floor for further evaluation and management of symptoms. DCP met with pt this morning to discuss discharge needs. Pt sitting up in bed. DCP introduced herself and role. Pt states he lives in a single story house in [place] with his , Lula. Pt has a local son, Brice, who stays with them sometimes. Pt states that he is independent at baseline and currently drives POV. Pt denies DME use. Pt denies any resources at this time. DCP identifies the need to r/o home IV abx. DCP to continue to follow. White board updated and instructed to call. Pt thankful for the discussion. P: Once pt is deemed medically stable, pt to discharge home via POV. R/O the need for home IV abx pending culture. Dorcas Montez RN/RODGER Discharge Planning/Care Management CM Discharge Assessment Start: 10/01/21 08:20 Freq: Status: Active Protocol: Document 10/01/21 11:16 EZEKIEL (Rec: 10/01/21 11:17 [email or web address] [id number]) Discharge Planning Assessment Assigned Retirement Assistant Dorcas Montez RN/RODGER Advance Directives? No History Provided By Patient Prior Living Arrangements House Household Members spouse Type of transporation used prior to Drives own vehicle admit Independent with ADL's Yes Is patient alert and oriented? Yes Barriers to Discharge No Discharge Plan Home Transportation Arrangement Spouse Referrals Initiated None needed Additional Comment At this time. Whiteboard Updated in Patient Room with Yes name and ext. # of Retirement Assistant Comment Instructed to call Review Status In Process Please Provide Date Initial DC 10/01/21 Assessment Was Performed Next Review Type Continued Stay Review
[2021-10-01 11:54] VITALS: BP 112/74; PULSE 83; RESP 16; TEMP 37.7; O2SAT 100
--- NOTE | 2021-10-01 11:55 | P.CONS_ITS ---
History of Present Illness Consult details Date Patient Seen: 10/01/21 Time Patient Seen: 10:30 Chief complaint: LT. elbow swollen post op Narrative: Mr Blount underwent excision of left elbow gouty tophus by Dr Mckee at the [facility] outpatient surgery center on 09/17/[address]. [address] Mckee's office yesterday complaining of low grade fever, fluid drainage from surgical site and swelling and was advised to come to the ED. He had an elevated WBC and was hypote nsive, and there was a concern for sepsis. His hypotension responded appropriately to IVF and he was admitted for observation. Pt sitting up in bed, comfortable. Meds Home Medications and Allergies Home Medications Medication Instructions Recorded Confirmed Type omeprazole 20 mg tablet,delayed 20 mg PO DAILY #90 tabs 11/12/19 09/30/21 Rx release albuterol sulfate 90 mcg/actuation 2 puff inhalation Q4-6H PRN 12/05/20 09/30/21 History aerosol inhaler Shortness Of Breath atorvastatin 80 mg tablet 80 mg PO HS #90 tabs 01/19/21 09/30/21 Rx lisinopril 40 mg tablet 40 mg PO QDAY #90 tabs 01/29/21 09/30/21 Rx Disabled Parking #1 ea 03/17/21 09/30/21 Rx levetiracetam 500 mg tablet 500 mg PO DAILY #90 tabs 06/26/21 09/30/21 Rx prednisone 10 mg tablet 10 mg PO DAILY #90 tabs 09/07/21 09/30/21 Rx probenecid 500 mg tablet 250 mg PO BID #60 tabs 09/07/21 09/30/21 Rx aspirin 81 mg tablet,delayed 81 mg PO DAILY 09/30/21 09/30/21 History release indomethacin 25 mg capsule 25 mg PO PRN PRN Gout 09/30/21 09/30/21 History Allergies Allergy/AdvReac Type Severity Reaction Status Date / Time No Known Drug Allergies Allergy Verified 09/30/21 14:16 Review of Systems Review of Systems ROS: Yes All systems reviewed with the patient and are negative except as otherwise documented Exam Vital Signs (past 8 hours): - 10/01/21 05:00 10/01/21 11:54 Temperature 97.1 F L 99.8 F H Pulse Rate 66 83 Respiratory Rate 20 16 Blood Pressure 120/66 112/74 Pulse Oximetry 96 100 Oxygen Flow Rate 0 0 Oxygen Delivery Method Room Air Oxygen Flow Rate 0 Narrative Exam Narrative: Fluid from elbow sent for GS and aerobic cx from ED; scant GPC, cx pending. Currently unable to express drainage from elbow, which is mildly swollen. Forearm is moderately swollen, warm, mildly and diffusely erythematous. Currently on IV ceftriaxone. Objective Labs Result Diagrams: 10/01/21 05:28 10/01/21 05:28 Labs: Laboratory Results - last 24 hr 09/30/21 09/30/21 09/30/21 14:30 14:30 14:30 WBC 16.1 H RBC 4.55 Hgb 14.3 Hct 41.8 MCV 91.8 MCH 31.5 MCHC 34.3 RDW 16.7 H Plt Count 187 Neut % (Auto) 80.4 H Lymph % (Auto) 13.9 L [place] % (Auto) 2.7 L Eos % (Auto) 2.0 Baso % (Auto) 1.0 Neut # (Auto) 81425 H Lymph # (Auto) 2200 [place] # (Auto) 400 Eos # (Auto) 300 Baso # (Auto) 200 H ESR PT 12.0 INR 1.0 APTT 30 Sodium 136 L Potassium 3.9 Chloride 101 Carbon Dioxide 27 BUN 22 H Creatinine 1.08 Estimated GFR > 60 BUN/Creatinine Ratio 20.4 Glucose 136 H Lactate Calcium 8.5 Total Bilirubin 0.7 AST 26 ALT 18 Alkaline Phosphatase 70 C-Reactive Protein Total Protein 6.9 Albumin 3.9 Globulin 3.0 Albumin/Globulin Ratio 1.3 Lipase 85 Procalcitonin 0.49 SARS-CoV-2 (PCR) 09/30/21 09/30/21 09/30/21 14:30 15:26 15:26 WBC RBC Hgb Hct MCV MCH MCHC RDW Plt Count Neut % (Auto) Lymph % (Auto) [place] % (Auto) Eos % (Auto) Baso % (Auto) Neut # (Auto) Lymph # (Auto) [place] # (Auto) Eos # (Auto) Baso # (Auto) ESR 22 H PT INR APTT Sodium Potassium Chloride Carbon Dioxide BUN Creatinine Estimated GFR BUN/Creatinine Ratio Glucose Lactate 1.2 Calcium Total Bilirubin AST ALT Alkaline Phosphatase C-Reactive Protein 3.9 H Total Protein Albumin Globulin Albumin/Globulin Ratio Lipase Procalcitonin SARS-CoV-2 (PCR) 09/30/21 10/01/21 10/01/21 19:10 05:28 05:28 WBC 16.7 H RBC 4.23 L Hgb 13.2 L Hct 38.8 L MCV 91.7 MCH 31.2 MCHC 34.1 RDW 16.3 H Plt Count 169 Neut % (Auto) 73.6 Lymph % (Auto) 20.1 L [place] % (Auto) 2.9 L Eos % (Auto) 1.9 L Baso % (Auto) 1.5 Neut # (Auto) 78954 H Lymph # (Auto) 3400 [place] # (Auto) 500 Eos # (Auto) 300 Baso # (Auto) 200 H ESR PT INR APTT Sodium 134 L Potassium 3.9 Chloride 102 Carbon Dioxide 27 BUN 15 Creatinine 0.96 Estimated GFR > 60 BUN/Creatinine Ratio 15.6 Glucose 95 Lactate Calcium 7.5 L Total Bilirubin AST ALT Alkaline Phosphatase C-Reactive Protein Total Protein Albumin Globulin Albumin/Globulin Ratio Lipase Procalcitonin SARS-CoV-2 (PCR) Negative [facility] Medical History BPH w urinary obs/LUTS CAD (coronary artery disease) Cerebrovascular accident (CVA) (05/29/13) Chronic back pain Chronic rhinosinusitis Complex partial seizure disorder Easy bruisability Enlarged prostate Essential hypertension (06/01/16) GERD (gastroesophageal reflux disease) Gout Gout, chronic (01/26/11) HTN (hypertension) Mixed hyperlipidemia (06/23/16) Non-STEMI (non-ST elevated myocardial infarction) (06/2009) Osteopenia Steroid-dependent asthma Unspecified asthma (01/26/11) Surgical History Hx of LASIK Hx of sinus surgery S/P shoulder surgery (02/07/20) Status post arthroscopy (2002) Status post cardiac catheterization (06/2009) Social History household members: spouse Tobacco & Substance Use Smoking Status: Never smoker alcohol intake: current Assessment & Plan Assessment and plan (1) Cellulitis of arm, left: Status: Acute Plan: No signs of joint infection. Per hospitalist note, likely continue hospitalization through today for IV abx x 24 hrs and then d/c w/ PO abx. Pt has appt w/ Dr Rafi dhillonorrow, 10/02/2021 @ [phone] office and should keep this appointment. Time Spent With Patient Critical Care time: I spent a total of [] minutes of critical care time on this patient's care today; this time is exclusive of procedural time.
[2021-10-01] MEDS: ATORVASTATIN 20 MG TABLET 80 MG PO (20:06)
[2021-10-01] MEDS: cefTRIAXone 1,000 MG in SODIUM CHLORIDE 0.9% 100 ML 200 MG IV (20:07)
[2021-10-01 21:00] VITALS: BP 111/63; PULSE 71; RESP 16; TEMP 36.8; O2SAT 98
[2021-10-02 05:00] VITALS: BP 130/74; PULSE 79; RESP 16; TEMP 37.3; O2SAT 96
[2021-10-02] MEDS: PANTOPRAZOLE DR 20 MG TABLET PO (05:07)
[2021-10-02] MEDS: ACETAMINOPHEN 325 MG TABLET 650 MG PO (05:09)
[2021-10-02 05:50] LABS: Add Manual Diff / Slide Review NO; BUN Creatinine Ratio 12.2 (6-22); Basophils Absolute Auto 100 /uL (0-100); Basophils Percent Auto 0.6 % (0-2); Blood Urea Nitrogen 11 mg/dL (9-20); Calcium 7.9 mg/dL (8.4-10.2); Carbon Dioxide 27 mmol/L (22-32); Chloride 104 mmol/L (98-107); Eosinophils Absolute Auto 300 /uL (0-450); Eosinophils Percent Auto 2.1 % (2-4); Estimated Glomerular Filt Rate > 60 mL/min (>60); Glucose 97 mg/dL (80-110); HEMOLYSIS < 15 (0-50); Hematocrit 35.9 % (41-53); Hemoglobin 12.2 g/dL (13.5-17.5); Lymphocytes Absolute Auto 2000 /uL (1100-4500); Lymphocytes Percent Auto 15.4 % (25-40); Mean Corpuscular HGB Conc 34.2 % (30-36); Mean Corpuscular Volume 90.7 fL (80-100); Monocytes Absolute Auto 300 /uL (0-900); Monocytes Percent Auto 2.5 % (3-14); Neutrophils Absolute Auto 10200 /uL (1500-7000); Neutrophils Percent Auto 79.4 % (50-75); Platelet Count 168 X10^3/uL (150-400); Potassium 3.7 mmol/L (3.4-5.1); Red Blood Cell Count 3.96 X10^6/uL (4.5-5.9); Red Cell Distribution Width 16.4 % (11.6-14.8); Sodium 136 mmol/L (137-145); White Blood Cell Count 12.8 X10^3/uL (4.5-11.0)
--- NOTE | 2021-10-02 07:28 | P.DS_ITS ---
History of Present Illness History of Present Illness Date Patient Seen: 10/02/21 Time Patient Seen: 07:28 Chief complaint: LT. elbow swollen post op Narrative: 66-year-old male admitted via emergency department with infection in his left elbow. Underwent surgery on the left elbow on 09/17/2021. He had increasing elbow pain and low-grade fever with maximum of 100.2. Day prior to admission noticed some increased swelling with some drainage. I the time he presented to the emergency department he was unable to bend because of pain. Came to the ER for evaluation In the ER he was found to be modestly hypotensive with leukocytosis and obvious at least subcutaneous infection in the skin around the elbow Orthopedic surgery was consulted who felt like he could probably go home except for his vital signs and suggested he be admitted to the medical service. By the time patient left emergency department his vital signs it stabilized after some IV fluids etcetera. Discharge Providers Provider Date of admission: 09/30/21 17:57 Discharge Date: 10/02/21 Primary care physician: Kelvin Holt MD Consults: 09/30/21 17:55 Consult to Orthopedic Surgery Stat Comment: Consulting Provider: Elio Alexander Reason for consultation: elbow infection Has provider been notified: Yes 09/30/21 19:42 Consult to Concrete Tester Routine Comment: Discharge provider: Kelvin Holt MD Summary Hospital Course Discharge Diagnosis: 1. Cellulitis left elbow growing Staph aureus 2. Possible sepsis/systemic inflammatory response with hypotension tachycardia, now resolved 3. Chronic back pain 4. Gout 5. Complex partial seizure disorder 6. Coronary artery disease, stable this hospitalization 7. Hypertension 8. BPH with lower urinary tract symptoms 9. GERD Hospital Course: Patient was admitted by the Hospital Emergency Department as above. Patient's pain erythema and other symptoms associated with his soft tissue infection improved after administration of antibiotics. Patient's white count slowly began to improve. Patient remained generally afebrile with peak temperature of 99.8? during the hospitalization. Cultures obtained from wound grew Staph aureus, that was not MRSA. Patient overall is felt to be doing well and received 2 doses of parental antibiotics. He was seen in consultation by Orthopedic surgery as well who felt like he could likely be safely discharged home if no complications were apparent in the first 24 hours. Patient did well without evidence of complications or issues and will be discharged to continue on a course of an oral first generation cephalosporin for the Staph aureus as an outpatient. He actually had an appointment on day of discharge with his orthopedic surgeon for postoperative evaluation which patient should be able to keep as well. Patient was modestly hypotensive during this hospitalization his lisinopril was held during this hospitalization. Blood pressure improved to normal without the lisinopril and patient will be discharged off of lisinopril until he can be re- evaluated by Dr. Holt his PCP. Exam Vital Signs (past 8 hours): - 10/02/21 05:00 Temperature 99.2 F Pulse Rate 79 Respiratory Rate 16 Blood Pressure 130/74 Pulse Oximetry 96 Oxygen Flow Rate 0 Oxygen Delivery Method Room Air Oxygen Flow Rate 0 Objective Labs Result Diagrams: 10/02/21 05:07 10/02/21 05:07 Labs: Laboratory Results - last 24 hr 10/02/21 10/02/21 05:07 05:07 WBC 12.8 H RBC 3.96 L Hgb 12.2 L Hct 35.9 L MCV 90.7 MCH 31.0 MCHC 34.2 RDW 16.4 H Plt Count 168 Neut % (Auto) 79.4 H Lymph % (Auto) 15.4 L [place] % (Auto) 2.5 L Eos % (Auto) 2.1 Baso % (Auto) 0.6 Neut # (Auto) 58239 H Lymph # (Auto) 2000 [place] # (Auto) 300 Eos # (Auto) 300 Baso # (Auto) 100 Sodium 136 L Potassium 3.7 Chloride 104 Carbon Dioxide 27 BUN 11 Creatinine 0.90 Estimated GFR > 60 BUN/Creatinine Ratio 12.2 Glucose 97 Calcium 7.9 L PFSH Medical History BPH w urinary obs/LUTS CAD (coronary artery disease) Cerebrovascular accident (CVA) (05/29/13) Chronic back pain Chronic rhinosinusitis Complex partial seizure disorder Easy bruisability Enlarged prostate Essential hypertension (06/01/16) GERD (gastroesophageal reflux disease) Gout Gout, chronic (01/26/11) HTN (hypertension) Mixed hyperlipidemia (06/23/16) Non-STEMI (non-ST elevated myocardial infarction) (06/2009) Osteopenia Steroid-dependent asthma Unspecified asthma (01/26/11) Surgical History Hx of ENEDELIA Hx of sinus surgery S/P shoulder surgery (02/07/20) Status post arthroscopy (2002) Status post cardiac catheterization (06/2009) Social History household members: spouse Smoking Status: Never smoker alcohol intake: current Discharge Assessment & Plan Assessment and Plan Assessment: Discharge on cephalexin and off of his lisinopril. Patient have a follow-up with Dr. Holt in 7-14 days Patient have postoperative follow-up with Dr. Mckee his orthopedic surgeon today the 02 of October as previously scheduled Discharge Plan Discharge Plan Patient Disposition: Home Provider Discharge Comment: Remain off lisinopril until seen by me in office Discharge orders & Medications Prescriptions: New cephalexin 500 mg tablet 500 mg PO TID Qty: 30 0RF Continued atorvastatin 80 mg tablet 80 mg PO HS Qty: 90 3RF levetiracetam 500 mg tablet 500 mg PO DAILY Qty: 90 3RF probenecid 500 mg tablet 250 mg PO BID Qty: 60 3RF prednisone 10 mg tablet 10 mg PO DAILY Qty: 90 0RF omeprazole 20 mg tablet,delayed release (DR/EC) 20 mg PO DAILY Qty: 90 3RF albuterol sulfate 90 mcg/actuation HFA aerosol inhaler 2 puff inhalation Q4-6H PRN (Reason: Shortness Of Breath) (DME) Disabled Parking See Rx Instructions .ROUTE .MEDSUPPLY Qty: 1 0RF Rx Instructions: Patient qualifies for disabled parking as per the attached form. aspirin 81 mg Tablet,Delayed Release (Dr/Ec) 81 mg PO DAILY indomethacin 25 mg capsule 25 mg PO PRN PRN (Reason: Gout) Label Comments: TAKE TWO CAPSULES BY MOUTH THREE TIMES DAILY FOR GOUT Discontinued lisinopril 40 mg tablet 40 mg PO QDAY Qty: 90 3RF Follow up/Referrals: Kelvin Holt MD [Primary Care Provider] - 2 Weeks Jovanni Mckee MD [Physician] - 1 Day (Keep surgical f/u appt with Dr. Mckee for 10/02/21 (today)) Discharge Health Status Multidrug resistant organism: No MDRO Diet/Activity/Treatments Diet: Diet as Tolerated Skin/Wound/Dressing Care Report to your healthcare provider any signs of infection, such as:: chills, fever, increased pain, unusual drainage and unusual redness Discharge Data Primary Care Provider: Kelvin Holt
[2021-10-02 08:10] VITALS: BP 141/80; PULSE 75; RESP 18; TEMP 36.8; O2SAT 97
[2021-10-02] MEDS: ENOXAPARIN 40 MG/0.4 ML SYRINGE SUBCUT (08:33)
[2021-10-02] MEDS: levETIRAcetam 250 MG TABLET 500 MG PO (08:33)
[2021-10-02] MEDS: PROBENECID 500 MG TABLET 250 MG PO (08:33)
[2021-10-02] MEDS: predniSONE 5 MG TABLET 10 MG PO (08:33)
--- NOTE | 2021-10-02 10:25 | PC.NURSE ---
Day Shift Pt left floor at 1026 via spouse and private vehicle, paperwork signed and all questions answered. Pt has personal belongings. MD script sent to Pt pharmacy electronic. Pt encouraged to f/u with Dr Mckee this afternoon, and encouraged to take all antibiotics. Pt instructed to keep wound dry until discussing care with Dr Mckee. Pt's spouse was in room for all discharge instructions.
== END 2021-10-02 10:29 | disposition home or self-care (01) | DRG 603 ==
LOC: ED 17:52 → AC 17:58
PROVIDERS: Admitting Provider Family Medicine; Emergency Provider Emergency Medicine; PCP Internal Medicine; Referring Provider Emergency Medicine; Visit Provider Internal Medicine
DX: L03.114 Cellulitis of left upper limb (principal); I95.9 Hypotension, unspecified; R00.0 Tachycardia, unspecified; G40.909 Epilepsy, unspecified, not intractable, without status epilepticus; M10.9 Gout, unspecified; I25.10 Atherosclerotic heart disease of native coronary artery without angina pectoris; J45.909 Unspecified asthma, uncomplicated; K21.9 Gastro-esophageal reflux disease without esophagitis; E78.2 Mixed hyperlipidemia; B95.61 Methicillin susceptible Staphylococcus aureus infection as the cause of diseases classified elsewhere; Z20.822 Contact with and (suspected) exposure to COVID-19
CPT/HCPCS: 36415; 36592; 71045; 73080; 80048; 80053; 83605; 83690; 84145; 85025; 85610; 85651; 85730; 86140; 87040; 87070; 87075; 87077; 87147; 87186; 87205; 87635; 93005; 99222; 99238; 99284; C9803; J0696; J1650

== ENCOUNTER → 2021-12-01 10:40 | Outpatient (CLI) | payer OTHER, MEDICARE, SELFPAY ==
[2021-09-30 19:35] VITALS: BMI 23.3
[2021-12-01 13:54] LABS: Influenza A - CEPHEID Flu A NEGATIVE (NEGATIVE); Influenza B - CEPHEID Flu B NEGATIVE (NEGATIVE)
[2021-12-01 14:17] LABS: COVID-19 CEPHEID PCR (VTM/NP) Negative (Negative)
== END ==
PROVIDERS: PCP Internal Medicine; Visit Provider Family Medicine
DX: R05.8 Other specified cough (principal); R09.81 Nasal congestion
CPT/HCPCS: 0240U

== ENCOUNTER → 2022-10-06 13:52 | Outpatient (CLI) | payer OTHER, MEDICARE, SELFPAY ==
[2021-09-30 19:35] VITALS: BMI 23.3
[2022-10-06 15:09] LABS: Add Manual Diff / Slide Review NO; Basophils Absolute Auto 0 /uL (0-100); Basophils Percent Auto 0.4 % (0-2); Eosinophils Absolute Auto 100 /uL (0-450); Eosinophils Percent Auto 0.7 % (2-4); Hematocrit 40.2 % (41-53); Hemoglobin 13.8 g/dL (13.5-17.5); Lymphocytes Absolute Auto 2100 /uL (1100-4500); Lymphocytes Percent Auto 24.5 % (25-40); Mean Corpuscular HGB Conc 34.3 % (30-36); Mean Corpuscular Hemoglobin 32.3 PG (26-34); Mean Corpuscular Volume 94.3 fL (80-100); Monocytes Absolute Auto 400 /uL (0-900); Neutrophils Absolute Auto 6000 /uL (1500-7000); Neutrophils Percent Auto 69.4 % (50-75); Platelet Count 176 X10^3/uL (150-400); Red Blood Cell Count 4.26 X10^6/uL (4.5-5.9); Red Cell Distribution Width 15.3 % (11.6-14.8); White Blood Cell Count 8.7 X10^3/uL (4.5-11.0)
[2022-10-06 15:23] LABS: Hemoglobin A1C% w Est Avg Glu 5.7 % (4.0-6.0)
[2022-10-06 15:30] LABS: BUN Creatinine Ratio 18.9 (6-22); Blood Urea Nitrogen 21 mg/dL (9-20); Calcium 9.3 mg/dL (8.4-10.2); Carbon Dioxide 28 mmol/L (22-32); Chloride 104 mmol/L (98-107); Estimated Glomerular Filt Rate > 60 mL/min (>60); Glucose 81 mg/dL (80-110); HEMOLYSIS < 15 (0-50); Sodium 141 mmol/L (137-145)
[2022-10-06 15:41] LABS: Appearance Urine UA CLEAR; Bilirubin Urine UA NEGATIVE (NEGATIVE); Color Urine UA YELLOW; Glucose Urine UA NEGATIVE (Negative); Ketones Urine UA NEGATIVE (NEGATIVE); Leukocyte Esterase Urine UA NEGATIVE (NEGATIVE); Nitrite Urine UA NEGATIVE (Negative); Occult Blood Urine UA NEGATIVE (Negative); Protein Urine UA NEGATIVE (Negative); Specific Gravity Urine UA 1.015 (1.000-1.035); Urobilinogen Urine UA 0.2 E.U./dL (0.2)
[2022-10-06 16:12] LABS: Bacteria Urine None Seen; Culture Indicated Urine Cult Not Indicated; RBC Urine None Seen (0-5/HPF); Squamous Epithelial Cell Urine None Seen (0-5/HPF); WBC Urine None Seen (0-5/HPF)
== END ==
PROVIDERS: PCP Internal Medicine; Referring Provider Orthopaedic Surgery; Visit Provider Orthopaedic Surgery
DX: Z01.818 Encounter for other preprocedural examination (principal); Z01.812 Encounter for preprocedural laboratory examination; R73.9 Hyperglycemia, unspecified; N39.0 Urinary tract infection, site not specified
CPT/HCPCS: 36415; 80048; 81001; 83036; 85025; 93005

== ENCOUNTER → 2023-01-07 07:20 | Outpatient (CLI) | payer OTHER, MEDICARE, SELFPAY ==
[2021-09-30 19:35] VITALS: BMI 23.3
[2023-01-07 08:35] LABS: Alanine Aminotransferase 28 IU/L (<50); Albumin Globulin Ratio 1.3 (1.0-2.8); Alkaline Phosphatase 71 U/L (38-126); Aspartate Aminotransferase 30 IU/L (17-59); BUN Creatinine Ratio 18.9 (6-22); Bilirubin Total 0.8 mg/dL (0.2-1.3); Blood Urea Nitrogen 18 mg/dL (9-20); Calcium 9.6 mg/dL (8.4-10.2); Carbon Dioxide 27 mmol/L (22-32); Chloride 100 mmol/L (98-107); Cholesterol 234 mg/dL (140-199); Estimated Glomerular Filt Rate > 60 mL/min (>60); Globulin 3.1 g/dL (1.7-4.1); Glucose 100 mg/dL (80-110); HDL Cholesterol 94 mg/dL (40-60); HEMOLYSIS < 15 (0-50); LDL Cholesterol Calculated 102 mg/dL (<100); Sodium 136 mmol/L (137-145); Total Protein 7.1 g/dL (6.3-8.2); Triglycerides 190 mg/dL (35-150)
[2023-01-07 09:01] LABS: Prostate Specific Antigen Scrn 1.05 ng/mL (0.1-4.0)
== END ==
PROVIDERS: PCP Internal Medicine; Referring Provider Internal Medicine; Visit Provider Internal Medicine
DX: I10 Essential (primary) hypertension (principal); E78.2 Mixed hyperlipidemia; Z12.5 Encounter for screening for malignant neoplasm of prostate
CPT/HCPCS: 36415; 80053; 80061; G0103

== ENCOUNTER 2023-02-11 09:26 | Day surgery (SDC) | payer OTHER, SELFPAY ==
[2021-09-30 19:35] VITALS: BMI 23.3
[2023-02-11] MEDS: ALBUTEROL/IPRATROPIUM 3 ML AMPUL INH (10:07)
[2023-02-11] MEDS: LACTATED RINGERS 1,000 ML 42 ML IV (10:07)
[2023-02-11 10:08] VITALS: BP 148/95; PULSE 82; RESP 16; TEMP 36.6; O2SAT 97; BMI 24.9
--- NOTE | 2023-02-11 10:55 | P.HP_ITS ---
History of Present Illness History of Present Illness Date Patient Seen: 02/11/23 Time Patient Seen: 10:55 Chief complaint: [facility] Narrative: First colonoscopy for colon cancer screening. [facility] Medical History Cellulitis of arm, left Easy bruisability Gout Enlarged prostate HTN (hypertension) Chronic back pain Chronic rhinosinusitis BPH w urinary obs/LUTS Complex partial seizure disorder Unspecified asthma (01/26/11) Gout, chronic (01/26/11) Steroid-dependent asthma Osteopenia GERD (gastroesophageal reflux disease) Non-STEMI (non-ST elevated myocardial infarction) (06/2009) CAD (coronary artery disease) Mixed hyperlipidemia (06/23/16) Essential hypertension (06/01/16) Cerebrovascular accident (CVA) (05/29/13) Surgical History Status post left partial knee replacement (~11/2022) Hx of sinus surgery Hx of LASIK S/P shoulder surgery (02/07/20) Status post cardiac catheterization (06/2009) Status post arthroscopy (2002) Social History household members: spouse Smoking Status: Never smoker alcohol intake: current Meds Home Medications and Allergies Home Medications Medication Instructions Recorded Confirmed Type Disabled Parking #1 ea 03/17/21 01/10/23 Rx aspirin 81 mg tablet,delayed 81 mg PO DAILY 09/30/21 02/11/23 History release indomethacin 25 mg capsule 25 mg PO PRN PRN Gout 09/30/21 02/11/23 History atorvastatin 80 mg tablet 80 mg PO HS #90 tabs 05/10/22 02/11/23 Rx omeprazole 20 mg tablet,delayed 20 mg PO BID 07/12/22 02/11/23 History release levetiracetam 500 mg tablet 500 mg PO DAILY #90 tabs 09/02/22 02/11/23 Rx prednisone 10 mg tablet 10 mg PO DAILY #90 tabs 12/01/22 02/11/23 Rx albuterol sulfate 90 mcg/actuation 2 puff inhalation Q4-6H PRN 12/10/22 02/11/23 Rx aerosol inhaler Shortness Of Breath #8.5 grams Allergies Allergy/AdvReac Type Severity Reaction Status Date / Time No Known Drug Allergies Allergy Verified 02/11/23 09:59 Review of Systems Review of Systems ROS: Yes All systems reviewed with the patient and are negative except as otherwise documented Exam Vital Signs (past 8 hours): - 02/11/23 10:08 Temperature 97.8 F Pulse Rate 82 Respiratory Rate 16 Blood Pressure 148/95 H Pulse Oximetry 97 Oxygen Delivery Method Room Air Oxygen Delivery Method Room Air Const General: cooperative, healthy appearing and comfortable Nutritional Appearance: average body habitus [facility] Head: normocephalic and atraumatic Eyes Conjunctivae: conjunctivae normal Sclera: sclerae normal Neck Neck: trachea midline Resp Effort & Inspection: normal respiratory effort and able to speak in complete sentences Cardio Rate: regular rate Rhythm: regular rhythm GI Inspection: non-distended Palpation: soft Skin General: atrophy, crusts and dry skin Neuro General: patient alert, patient awake and patient oriented x3 Cognition: normal cognition Psych Appearance: grossly normal Mental Status: mental status grossly normal Judgment: judgment good Assessment & Plan Assessment & Plan narrative: Colonoscopy for colon cancer screening using anesthesia Time Spent With Patient Time with patient: less than 30 minutes
--- NOTE | 2023-02-11 11:13 | PM.OP.COLON ---
Operative Date/Time/Diagnoses Date of procedure: 02/11/23 Time of procedure: 11:13 Pre-op diagnosis: Colon cancer screening Post-op diagnosis: same Procedure & Clinicians Study performed: Colonoscopy with anesthesia Same procedure as scheduled: Yes Indications: Colon cancer screening Surgeon: Belkis Kauffman Procedure Notes Procedure in detail: Preop diagnosis: Colon cancer screening Postop diagnosis: Same Operative procedure: Colonoscopy with anesthesia Surgeon: Melia Kauffman MD Findings: Normal colonoscopy. No diverticulosis, no polyps Procedure: Patient placed in a lateral position. Rectal exam performed showing normal tone no masses. Colonoscope inserted into the rectum and advanced to ileocecal valve with minimal difficulty. Insufflation and extraction scope including retroflex and the above findings. Impression: Normal colonoscopy. No polyps identified. Plan: Repeat colonoscopy in 10 years unless otherwise indicated by change in clinical condition Specimen(s): none sent Complications: none Post-procedure Recommendations: Colonoscopy in 10 years Follow up: as needed Disposition: PACU
[2023-02-11 11:15] VITALS: BP 98/59; PULSE 85; RESP 14; TEMP 36.7; O2SAT 97
[2023-02-11 11:20] VITALS: BP 105/73; PULSE 81; RESP 19; O2SAT 99
[2023-02-11 11:25] VITALS: BP 108/80; PULSE 78; RESP 16; O2SAT 98
[2023-02-11 11:40] VITALS: BP 156/90; PULSE 84; RESP 16; O2SAT 95
== END 2023-02-11 11:42 | disposition home or self-care (01) ==
PROVIDERS: PCP Internal Medicine; Referring Provider Surgery; Visit Provider Surgery
PROC: 0DJD8ZZ Inspection of Lower Intestinal Tract, Via Natural or Artificial Opening Endoscopic (ICD-10-PCS; CPT 45378; principal; 2023-02-11 10:30)
DX: Z12.11 Encounter for screening for malignant neoplasm of colon (principal)
CPT/HCPCS: 45378; J2704

== ENCOUNTER → 2023-07-08 06:33 | Outpatient (CLI) | payer OTHER, SELFPAY ==
[2021-09-30 19:35] VITALS: BMI 23.3
[2023-07-08 08:22] LABS: HEMOLYSIS < 15 (0-50); Potassium 4.3 mmol/L (3.4-5.1)
[2023-07-08 08:23] LABS: Alanine Aminotransferase 16 IU/L (<50); Albumin 3.8 g/dL (3.5-5.0); Albumin Globulin Ratio 1.3 (1.0-2.8); Alkaline Phosphatase 61 U/L (38-126); Aspartate Aminotransferase 28 IU/L (17-59); BUN Creatinine Ratio 12.9 (6-22); Bilirubin Total 0.6 mg/dL (0.2-1.3); Blood Urea Nitrogen 11 mg/dL (9-20); Calcium 9.1 mg/dL (8.4-10.2); Carbon Dioxide 30 mmol/L (22-32); Chloride 100 mmol/L (98-107); Cholesterol 252 mg/dL (140-199); Estimated Glomerular Filt Rate > 60 mL/min (>60); Glucose 86 mg/dL (80-110); Sodium 134 mmol/L (137-145); Total Protein 6.8 g/dL (6.3-8.2); Triglycerides 79 mg/dL (35-150)
[2023-07-08 08:32] LABS: HDL Cholesterol 116 mg/dL (40-60); LDL Cholesterol Calculated 120 mg/dL (<100)
== END ==
PROVIDERS: PCP Internal Medicine; Referring Provider Internal Medicine; Visit Provider Internal Medicine
DX: E78.2 Mixed hyperlipidemia (principal); I10 Essential (primary) hypertension; I25.10 Atherosclerotic heart disease of native coronary artery without angina pectoris
CPT/HCPCS: 36415; 80053; 80061

== ENCOUNTER 2023-10-15 14:28 | Emergency (ER) | payer OTHER, SELFPAY ==
[2021-09-30 19:35] VITALS: BMI 23.3
[2023-10-15 14:47] VITALS: BP 153/84; PULSE 81; RESP 16; TEMP 37; O2SAT 100; BMI 22.8
--- NOTE | 2023-10-15 14:50 | DI.RAD.S_ITS ---
PROCEDURE: XR CHEST 2V INDICATIONS: cough TECHNIQUE: 2 views of the chest were acquired. COMPARISON: [facility], CR, XR CHEST 1V, 09/30/2021, 14:43. [facility], CR, XR CHEST 2V, 12/23/2020, 9:56. FINDINGS: Surgical changes and devices: Partially imaged lumbar spine fusion. Lungs and pleura: Lungs are clear. No pleural effusions or pneumothorax. Mediastinum: Mediastinal contours are normal. Heart size is normal. Again seen are prominent hilar calcifications which are likely the sequela of prior granulomatous disease. Bones and chest wall: No suspicious bony abnormalities. Soft tissues appear unremarkable. IMPRESSION: No acute cardiopulmonary abnormality is seen. Dictated by: Cheryl Olmstead M.D. on 10/15/2023 at 14:10 Approved by: Cheryl Olmstead M.D. on 10/15/2023 at 14:11
[2023-10-15 15:42] LABS: Adenovirus Not Detected (Not Detect); B. parapertussis Not Detected (Not Detecte); Bordetella pertussis Not Detected (Not Detect); Chlamydophila pneumoniae Not Detected (Not Detect); Coronavirus 229E Not Detected (Not Detect); Coronavirus HKU1 Not Detected (Not Detect); Coronavirus NL 63 Not Detected (Not Detect); Coronavirus OC43 Not Detected (Not Detect); Human Metapneumovirus Not Detected (Not Detect); Human Rhinovirus/Enterovirus Detected (Not Detect); Influenza A Not Detected (Not Detect); Influenza B Not Detected (Not Detect); Mycoplasma pneumoniae Not Detected (Not Detect); Parainfluenza Virus 1 Not Detected (Not Detect); Parainfluenza Virus 2 Not Detected (Not Detect); Parainfluenza Virus 3 Not Detected (Not Detect); Parainfluenza Virus 4 Not Detected (Not Detect); Respiratory Syncytial Virus Not Detected (Not Detect); SARS- CoV-2 Not Detected (Not Detecte)
[2023-10-15 18:55] VITALS: BP 174/101; PULSE 70; RESP 20; O2SAT 100
--- NOTE | 2023-10-15 19:07 | ED_ITS ---
HPI - URI/Sore Throat General Chief Complaint: Upper Respiratory Symptoms Stated Complaint: thinks he has a lung Infection Time Seen by Provider: 10/15/23 19:05 Source: patient Mode of arrival: Ambulatory History of Present Illness HPI Narrative: Patient is a 68 year male history of asthma, coronary artery disease without stent, hypertension, CVA presents today with cough and upper respiratory symptoms. He says for the last week he has had coughing that continues to get worse. Every time he takes a breath he starts coughing. He denies any sort of chest pain he has not having fevers or sore throat. He says at night the coughing seems to be worse. He does not have any significant swelling of his leg Related Data Home Medications Medication Instructions Recorded Confirmed aspirin 81 mg tablet,delayed 81 mg PO DAILY 09/30/21 07/11/23 release omeprazole 20 mg tablet,delayed 20 mg PO BID 07/12/22 07/11/23 release Previous Rx's Medication Instructions Recorded Disabled Parking #1 ea 03/17/21 indomethacin 25 mg capsule 50 mg (2 x 25 mg) PO TID PRN for 03/01/23 gout pain #360 caps prednisone 10 mg tablet 10 mg PO DAILY #90 tabs 06/17/23 albuterol sulfate 90 mcg/actuation 2 puff inhalation Q4-6H PRN 06/20/23 aerosol inhaler Shortness Of Breath #8.5 grams levetiracetam 500 mg tablet 500 mg PO DAILY #90 tabs 08/18/23 atorvastatin 80 mg tablet 80 mg PO HS #90 tabs 09/27/23 prednisone 20 mg tablet 40 mg (2 x 20 mg) PO DAILY #10 tabs 10/15/23 Allergies Allergy/AdvReac Type Severity Reaction Status Date / Time No Known Drug Allergies Allergy Verified 10/15/23 14:47 Patient History Medical History Cellulitis of arm, left Easy bruisability Gout Enlarged prostate HTN (hypertension) Chronic back pain Chronic rhinosinusitis BPH w urinary obs/LUTS Complex partial seizure disorder Unspecified asthma (01/26/11) Gout, chronic (01/26/11) Steroid-dependent asthma Osteopenia GERD (gastroesophageal reflux disease) Non-STEMI (non-ST elevated myocardial infarction) (06/2009) CAD (coronary artery disease) Mixed hyperlipidemia (06/23/16) Essential hypertension (06/01/16) Cerebrovascular accident (CVA) (05/29/13) Surgical History Status post left partial knee replacement (~11/2022) Hx of sinus surgery Hx of LASIK S/P shoulder surgery (02/07/20) Status post cardiac catheterization (06/2009) Status post arthroscopy (2002) Social History household members: spouse Smoking Status: Never smoker alcohol intake: current Smoking Status: Never smoker alcohol intake frequency: 3 or more drinks per day Substance Use Type: does not use Exam Initial Vital Signs Initial Vital Signs: Vital Signs Temperature 98.6 F 10/15/23 14:47 Pulse Rate 81 10/15/23 14:47 Respiratory Rate 16 10/15/23 14:47 Blood Pressure 153/84 H 10/15/23 14:47 Pulse Oximetry 100 10/15/23 14:47 Oxygen Delivery Method Room Air 10/15/23 14:47 GENERAL: Alert 68-year-old male HEENT: Head atraumatic,EOMI, pupils reactive, face symmetric, CARDIOVASCULAR: Regular rate and rhythm without murmurs, rubs or gallops. RESPIRATORY: No conversational dyspnea, coughing with deep breath mild bilateral wheezing no tachypnea ABDOMEN: Soft, nontender. Normoactive bowel sounds all 4 quadrants. No guarding or rebound. EXTREMITIES: Normal range of motion, no clubbing or edema. Neurovascularly intact NEUROLOGICAL: Alert and oriented x4.Normal gait and speech. SKIN: Warm, dry, no laceration, no petechiae, no rashes or lesions. Course Orders Ordered: Discontinued Medications Albuterol/Ipratropium (Albuterol/Ipratropium 3 Ml Ampul) 3 ml INH NOW ONE Stop: 10/15/23 19:19 Last Admin: 10/15/23 19:36 Dose: 3 ml Documented By: VENU Albuterol/Ipratropium (Albuterol/Ipratropium 3 Ml Ampul) 3 ml INH NOW ONE Stop: 10/15/23 20:20 Last Admin: 10/15/23 20:26 Dose: 3 ml Documented By: MR Vital Signs Vital signs: Vital Signs - 8 hr 10/15/23 18:55 10/15/23 19:36 10/15/23 21:08 Temperature 97.9 F Pulse Rate 70 70 96 H Respiratory Rate 20 16 18 Blood Pressure 174/101 H 164/92 H Pulse Oximetry 100 93 98 Oxygen Delivery Method Room Air Room Air Room Air MDM - URI/Sore Throat Lab Data Labs: Lab Results 10/15/23 Range/Units 14:51 Chlamy pneumoniae PCR Not detected (Not Detect) Adenovirus (PCR) Not detected (Not Detect) B.parapertussis DNA PCR Not detected (Not Detecte) Coronavirus OC43 (PCR) Not detected (Not Detect) Coronavirus HKU1 (PCR) Not detected (Not Detect) Coronavirus 229E (PCR) Not detected (Not Detect) SARS-CoV-2 (PCR) Not detected (Not Detecte) Coronavirus NL63 (PCR) Not detected (Not Detect) Human Metapneumovir PCR Not detected (Not Detect) Influenza Type A (PCR) Not detected (Not Detect) Influenza Type B (PCR) Not detected (Not Detect) M. pneumoniae (PCR) Not detected (Not Detect) Parainfluenza 1 (PCR) Not detected (Not Detect) Parainfluenza 2 (PCR) Not detected (Not Detect) Parainfluenza 3 (PCR) Not detected (Not Detect) Parainfluenza 4 (PCR) Not detected (Not Detect) RSV (PCR) Not detected (Not Detect) Entero/Rhino (PCR) Detected H (Not Detect) Imaging Data Chest x-ray: Radiologist's Impression: PROCEDURE: XR CHEST 2V INDICATIONS: cough TECHNIQUE: 2 views of the chest were acquired. COMPARISON: [facility], , XR CHEST 1V, 09/30/2021, 14:43. [facility], , XR CHEST 2V, 12/23/2020, 9:56. FINDINGS: Surgical changes and devices: Partially imaged lumbar spine fusion. Lungs and pleura: Lungs are clear. No pleural effusions or pneumothorax. Mediastinum: Mediastinal contours are normal. Heart size is normal. Again seen are prominent hilar calcifications which are likely the sequela of prior granulomatous disease. Bones and chest wall: No suspicious bony abnormalities. Soft tissues appear unremarkable. IMPRESSION: No acute cardiopulmonary abnormality is seen. Dictated by: Cheryl Olmstead M.D. on 10/15/2023 at 14:10 Approved by: Cheryl Olmstead M.D. on 10/15/2023 at 14:11 [facility] Narrative Medical decision making narrative: Patient 68-year-old male history of hypertension hyperlipidemia coronary artery disease without stent or CABG presents today with cough. He denies significant shortness of breath or fever. He does have some mild wheezing bilaterally no evidence of any fluid overload or lower extremity edema. He has not in significant respiratory distress. Viral panel is positive for entero/rhinovirus. Chest x-ray does not show any evidence of pneumonia or fluid overload Patient did improve with albuterol. He takes prednisone daily he has been tapering down he is down to 10 mg once a day. He has albuterol inhalers at home he has been using them. At this will increase his prednisone to 40 mg. He overall appears well nontoxic. Symptoms are consistent with upper respiratory infection and viral panel confirms this. Discharge Plan Departure Patient Disposition: Home Clinical Impression: Upper respiratory infection Instructions: DI for Viral Upper Respiratory Infection -- Adult Activity Restrictions/Additional Instructions: *You have been diagnosed with upper respiratory infection *What to do: At this time you do have a virus your x-ray is clear. With increase your prednisone for few days and be sure to use your inhaler regularly *Continue to take medications as directed Prednisone 40 mg once a day for 5 days then resume your 10 mg daily Albuterol inhaler 1-2 puffs every 4 hours *Follow up with your primary care provider in 2-3 days or call [phone] *Return to ER if you should have increasing shortness of breath chest pain swelling weakness or any new, worsening or concerning symptoms Prescriptions: New prednisone 20 mg tablet 40 mg PO DAILY Qty: 10 0RF No Action indomethacin 25 mg capsule 50 mg PO TID PRN (Reason: for gout pain) Qty: 360 2RF prednisone 10 mg tablet 10 mg PO DAILY Qty: 90 0RF albuterol sulfate 90 mcg/actuation HFA aerosol inhaler 2 puff inhalation Q4-6H PRN (Reason: Shortness Of Breath) Qty: 8.5 2RF levetiracetam 500 mg tablet 500 mg PO DAILY Qty: 90 3RF atorvastatin 80 mg tablet 80 mg PO HS Qty: 90 3RF omeprazole 20 mg tablet,delayed release (DR/EC) 20 mg PO BID (DME) Disabled Parking See Rx Instructions .ROUTE .MEDSUPPLY Qty: 1 0RF Rx Instructions: Patient qualifies for disabled parking as per the attached form. aspirin 81 mg Tablet,Delayed Release (Dr/Ec) 81 mg PO DAILY Referrals: Kelvin Holt MD [Primary Care Provider] - Stand Alone Forms: Patient Portal/API
[2023-10-15 19:36] VITALS: PULSE 70; RESP 16; O2SAT 93
[2023-10-15] MEDS: ALBUTEROL/IPRATROPIUM 3 ML AMPUL INH ×2 (19:36→20:26)
[2023-10-15 21:08] VITALS: BP 164/92; PULSE 96; RESP 18; TEMP 36.6; O2SAT 98
== END 2023-10-15 21:09 | disposition home or self-care (01) ==
PROVIDERS: Emergency Medicine; Emergency Provider Emergency Medicine; PCP Internal Medicine
DX: J06.9 Acute upper respiratory infection, unspecified (principal); B34.8 Other viral infections of unspecified site; R06.2 Wheezing; Z11.52 Encounter for screening for COVID-19
CPT/HCPCS: 71046; 87633; 94640; 99283

== ENCOUNTER 2023-10-29 01:22 | Emergency (ER) | payer OTHER, SELFPAY ==
[2021-09-30 19:35] VITALS: BMI 23.3
[2023-10-29] VITALS (30 sets, daily range): BP systolic 83–122; BP diastolic 50–83; PULSE 68–89; RESP 9–18; TEMP 36.9; O2SAT 89–100; BMI 23.6
--- NOTE | 2023-10-29 01:40 | ED.UPPEXIN ---
HPI - Extremity Injury (Upper) General Chief Complaint: Extremity Problem,Nontraumatic Stated Complaint: rt wrist pain Time Seen by Provider: 10/29/23 01:28 History of Present Illness HPI narrative: 68-year-old male with history of steroid dependent chronic lung disease, most recently seen 10/14/2024 here with upper respiratory infection rhino virus positive, was given prescription for prednisone 40 mg pulse regimen to then resume his 10 mg daily chronic regimen of oral prednisone which he has been taking, did not run out of medications. Awoke early this morning with right-sided wrist pain. He does not believe that he slept on it or fell on it, no new activities, no change in activities. He has not feel feverish. He has got no rash or redness or warmth to the affected area. No other areas of joints affected. He does not recall history of rheumatoid arthritis. Chart history of gout noted, not taking allopurinol on chronic regimen medication list. No recent wrist procedures or injections. He had not recall any right wrist regional volar peripheral IV catheter during his recent ED evaluation. Related Data Home Medications Medication Instructions Recorded Confirmed aspirin 81 mg tablet,delayed 81 mg PO DAILY 09/30/21 07/11/23 release omeprazole 20 mg tablet,delayed 20 mg PO BID 07/12/22 07/11/23 release Previous Rx's Medication Instructions Recorded Disabled Parking #1 ea 03/17/21 indomethacin 25 mg capsule 50 mg (2 x 25 mg) PO TID PRN for 03/01/23 gout pain #360 caps albuterol sulfate 90 mcg/actuation 2 puff inhalation Q4-6H PRN 06/20/23 aerosol inhaler Shortness Of Breath #8.5 grams levetiracetam 500 mg tablet 500 mg PO DAILY #90 tabs 08/18/23 atorvastatin 80 mg tablet 80 mg PO HS #90 tabs 09/27/23 prednisone 20 mg tablet 40 mg (2 x 20 mg) PO DAILY #10 tabs 10/15/23 prednisone 10 mg tablet 10 mg PO DAILY #90 tabs 10/28/23 Allergies Allergy/AdvReac Type Severity Reaction Status Date / Time No Known Drug Allergies Allergy Verified 10/15/23 14:47 Review of Systems Review of Systems Narrative: see HPI Patient History Medical History Cellulitis of arm, left Easy bruisability Gout Enlarged prostate HTN (hypertension) Chronic back pain Chronic rhinosinusitis BPH w urinary obs/LUTS Complex partial seizure disorder Unspecified asthma (01/26/11) Gout, chronic (01/26/11) Steroid-dependent asthma Osteopenia GERD (gastroesophageal reflux disease) Non-STEMI (non-ST elevated myocardial infarction) (06/2009) CAD (coronary artery disease) Mixed hyperlipidemia (06/23/16) Essential hypertension (06/01/16) Cerebrovascular accident (CVA) (05/29/13) Surgical History Status post left partial knee replacement (~11/2022) Hx of sinus surgery Hx of LASIK S/P shoulder surgery (02/07/20) Status post cardiac catheterization (06/2009) Status post arthroscopy (2002) Social History household members: spouse Smoking Status: Never smoker alcohol intake: current Smoking Status: Never smoker alcohol intake frequency: 3 or more drinks per day Substance Use Type: does not use Exam Narrative Exam Narrative: GENERAL: Well-developed patient, in mild distress. HEAD: Atraumatic. Normocephalic. EYES: Pupils equal round and reactive. Extraocular motions intact. No scleral icterus. No injection or drainage. ENT: Nose without bleeding, purulent drainage. Throat without erythema, tonsillar hypertrophy or exudate. Airway patent. NECK: Trachea midline. Non tender CARDIOVASCULAR: Regular rate and rhythm without murmurs, gallops, or rubs. RESPIRATORY: Clear to auscultation. Breath sounds equal bilaterally. No wheezes, rales, or rhonchi. GASTROINTESTINAL: Abdomen soft, non-tender, nondistended. EXTREMITIES: Arthritic changes to bilateral hands PIPJ and DIPJ he has an MCPs. No gross right wrist deformity, nor any swelling or redness, no palpable cords, no gross deformity, not particularly warm compared to the same volar and dorsal area of the left asymptomatic wrist. No lymphatic swelling, full range of motion of right elbow and shoulder. BACK: Nontender without deformity or crepitance. No flank tenderness. NEURO: AOx3. Motor exam grossly nonfocal, limited by right wrist pain SKIN: No rash or erythema of visible areas Initial Vital Signs Initial Vital Signs: Vital Signs Temperature 98.5 F 10/29/23 01:25 Pulse Rate 82 10/29/23 01:25 Respiratory Rate 16 10/29/23 01:25 Blood Pressure 83/50 L 10/29/23 01:25 Pulse Oximetry 97 10/29/23 01:25 Oxygen Delivery Method Room Air 10/29/23 01:25 Course Orders Ordered: Discontinued Medications Heparin Sodium (Porcine) (Heparin 5,000 Unit/Ml Vial) 4,500 unit 60 unit/kg (4500 unit) IV NOW ONE Stop: 10/29/23 03:07 Last Admin: 10/29/23 03:15 Dose: 4,500 unit Documented By: AB Sodium Chloride (Normal Saline 0.9%) 1,000 mls @ 1,000 mls/hr IV BOLUS ONE Stop: 10/29/23 02:45 Last Infusion: 10/29/23 02:40 Dose: Infused Documented By: Admin: 10/29/23 01:54 Dose: 1,000 mls/hr Documented By: AB Sodium Chloride (Normal Saline 0.9%) 1,000 mls @ 1,000 mls/hr IV BOLUS ONE Stop: 10/29/23 03:01 Last Infusion: 10/29/23 03:26 Dose: Infused Documented By: Admin: 10/29/23 02:40 Dose: 1,000 mls/hr Documented By: AB Heparin Sodium/Dextrose (Heparin Drip) 25,000 unit in 500 mls @ 17.418 mls/hr IV CONT NGHIA; Protocol Last Titration: 10/29/23 08:04 Dose: 0 units/kg/hr, 0 mls/hr Documented By: SIMÓN Co-signed By: TRINITY Admin: 10/29/23 03:15 Dose: 12 units/kg/hr, 17.418 mls/hr Documented By: AB Co-signed By: RICHARD Ketorolac Tromethamine (Ketorolac 30 Mg/Ml Vial) 15 mg IV NOW ONE Stop: 10/29/23 02:32 Last Admin: 10/29/23 02:35 Dose: 15 mg Documented By: AB Methylprednisolone (Methylprednisolone 125 Mg/2 Ml Vial) 125 mg IV NOW ONE Stop: 10/29/23 02:33 Last Admin: 10/29/23 02:36 Dose: 125 mg Documented By: AB Morphine Sulfate (Morphine 4 Mg/Ml Inj) 4 mg IV NOW ONE Stop: 10/29/23 02:08 Last Admin: 10/29/23 02:10 Dose: 4 mg Documented By: AB Morphine Sulfate (Morphine 4 Mg/Ml Inj) 4 mg IV NOW ONE Stop: 10/29/23 03:24 Last Admin: 10/29/23 03:27 Dose: 4 mg Documented By: AB Ondansetron HCl (Ondansetron 4 Mg/2 Ml Inj) 4 mg IV NOW ONE Stop: 10/29/23 02:08 Last Admin: 10/29/23 02:10 Dose: 4 mg Documented By: AB Vital Signs Vital signs: Vital Signs - 8 hr 10/29/23 07:45 10/29/23 07:45 Pulse Rate 68 Respiratory Rate 14 Blood Pressure 122/83 Pulse Oximetry 97 MDM - Extremity Injury (Upper) Lab Data Attestation: I reviewed the patient's lab results. 10/29/23 01:45 10/29/23 01:45 Labs: Lab Results 10/29/23 10/29/23 Range/Units 01:45 03:35 WBC 23.8 H (4.5-11.0) X10^3/uL RBC 4.18 L (4.5-5.9) X10^6/uL Hgb 13.0 L (13.5-17.5) g/dL Hct 37.8 L (41-53) % MCV 90.6 (80-100) fL MCH 31.2 (26-34) PG MCHC 34.4 (30-36) % RDW 15.4 H (11.6-14.8) % Plt Count 125 L (150-400) X10^3/uL Neut % (Auto) 92.4 H (50-75) % Lymph % (Auto) 4.6 L (25-40) % [place] % (Auto) 2.7 L (3-14) % Eos % (Auto) 0.0 L (2-4) % Baso % (Auto) 0.3 (0-2) % Neut # (Auto) 09485 H (9277-8538) /uL Lymph # (Auto) 1100 (3560-6816) /uL [place] # (Auto) 600 (0-900) /uL Eos # (Auto) 0 (0-450) /uL Baso # (Auto) 100 (0-100) /uL ESR 44 H (0-15) MM/HR APTT 35 (25.1-36.5) SECONDS Sodium 128 L (137-145) mmol/L Potassium 3.8 (3.4-5.1) mmol/L Chloride 95 L (98-107) mmol/L Carbon Dioxide 23 (22-32) mmol/L BUN 24 H (9-20) mg/dL Creatinine 1.18 (0.66-1.25) mg/dL Estimated GFR > 60 (>60) mL/min BUN/Creatinine Ratio 20.3 (6-22) Glucose 104 (80-110) mg/dL Lactate 1.8 (0.7-2.1) mmol/L Calcium 8.5 (8.4-10.2) mg/dL Total Bilirubin 0.8 (0.2-1.3) mg/dL AST 85 H (17-59) IU/L ALT 26 (<50) IU/L Alkaline Phosphatase 79 (38-126) U/L Total Creatine Kinase 533 H (55-170) U/L Troponin I 14.100 H* 14.100 H* (0.01-0.034) ng/mL C-Reactive Protein 20.6 H (<1.0) mg/dL Total Protein 6.3 (6.3-8.2) g/dL Albumin 3.4 L (3.5-5.0) g/dL Globulin 2.9 (1.7-4.1) g/dL Albumin/Globulin Ratio 1.2 (1.0-2.8) Lipase 63 (23-300) U/L ECG Data Attestation: I personally reviewed and interpreted this ECG as follows: Interpretation: Normal sinus rhythm with rate of 86, no obvious ST segment elevation or depression changes. T-wave inversion inferior leads noted. Flat T-waves lead V6 but upright in lead 1. VT 122, QRS 78, QTC 473. MDM Narrative Medical decision making narrative: 68-year-old male with history of steroid dependent chronic lung disease, recent prednisone pulse for rhinovirus-positive upper respiratory infection illness 10/15/2023 ED visit here, taking 10 mg daily prednisone chronic daily dose, with atraumatic right wrist pain. Noted to have low blood pressure at triage, no fever. Patient can not recall what his usual blood pressure range would be, but does not recall being told that has been low. He denies black or red stools. He denies stopping or running out of chronic steroid medications. He does not feel particularly dizzy. He has no chest pain or shortness of breath. No diaphoresis or nausea or vomiting. He has not have pain radiating to the right shoulder or right upper arm or right elbow. Pain not obviously worse with right upper extremity wrist movement, not particularly warm, does not seem obviously swollen, nor warm, does not seem consistent with septic joint. No distal right hand ischemic change or cyanosis, good radial pulse, not obvious for distal thrombosis arterial occlusion. Labs pending. IV fluid bolus. Initial screening EKG had movement artifact, but no obvious ST elevation changes, we will repeat after pain meds if blood pressure improved with fluids. DDx atraumatic right wrist pain, consider occult injury/strain, arterial thrombosis/stenosis/embolus, radiculopathy, tyron lytic lesion, anginal equivalent, gouty flare, septic joint, compartment syndrome, other. Systolic blood pressure 110 after IV fluid 1st half bag. White blood cell count [id number] noted, however patient is on chronic steroids with recent pulse steroid for resp illness. Will add lactate, CRP, ESR. X-ray right wrist pending. We will also search for other sources of sepsis, chest x-ray, urinalysis, other labs pending. IV fluid bolus. Blood cultures sent. Consider [place] crisis but patient did not run out of his chronic steroids by report, if hypotension refractory to IV fluid bolus could add IV hydrocortisone. Lab called with abnormal results, troponin markedly elevated at 14.0. EKG initial attempt showed movement artifact, no obvious STEMI however, we will obtain better study. Add IV heparin. Transfer to cardiac prestressed concrete laborer capable facility. EKG shows no obvious ST segment elevation changes, T-wave inversions inferiorly noted. X-ray right wrist series. Impressions: ?Polyarticular osteoarthritic changes as detailed without acute traumatic injury.? See radiology report X-ray chest chest. Impressions: ?No acute cardiopulmonary abnormality is identified.? See radiology report Patient believes he has had a prior heart attack before, perhaps 10 years ago, believes he was treated at [facility], no coronary stent placed, he believes he had a stress test a few years ago, can not recall if this was at [facility] or [facility] or elsewhere, does not seem to be able to identify any particular hand picker that follows him. We will contact [facility] Cardiology. Case discussed with Dr. Ovalles cardiology at [facility], requests repeat troponin now, if still/further elevated we would like to patient to be transferred on heparin there. Repeat troponin 14.1 same value, still elevated. We will contact [facility] about possible transfer 0430, No beds at [facility], [facility] initiating transfer call list. [phone], via [facility] line [facility] reports possible transfer to [facility], await callback 05, patient decided that he does not want to stay, does not want to be transferred, does not want to have any further evaluation or treatment in the in the emergency department, is leaving against medical advice. He was informed he is clinically suspected to be having in active heart attack. He is at risk of progression of heart attack, leading to disability, loss of independence, even , even possibly imminent if he does not get urgent treatment. He expressed insight and seemed to be clinically competent to make this decision. He did not want to wait to talk to any family members. He persisted in his desire to leave, he left the emergency department against medical advice. Return precautions discussed Critical Care Time Critical Care Time Critical Care Time: Yes Total Critical Care Time: 35 Attestation: The high probability of a clinically significant, sudden or life threatening deterioration of the [cardiopulmonary, musculoskeletal] system(s) required my full and direct attention, intervention and personal management. The aggregate critical care time was [35] minutes. This time is in addition to time spent performing reported procedures but includes the following: [x] Data Review and interpretation [x] Patient assessment and monitoring of vital signs [x] Documentation [x] Medication orders and management Discharge Plan Departure Patient Disposition: Home Clinical Impression: Pain in right wrist, Hx of gout, Non-ST elevation MA (NSTEMI), Left against medical advice Activity Restrictions/Additional Instructions: Nontraumatic right wrist pain, markedly elevated troponin blood test, indicative of a form of heart attack. IV heparin blood thinner was initiated. Pain medications given. Symptoms improved. Case discussed with hand picker Dr. Ovalles at [facility] who recommended transfer but they had no beds there. Eventually calling multiple places you were able to have a possible bed at [facility] in [place]. However then you decided that you did not want to be transferred, then you decided that you did not want to stay in the emergency department any longer. You were informed that you are clinically diagnosed as having an active heart attack. Your condition could rapidly progress, worsen, leading to disability, intermediate loss of independence, even , even possibly imminently. You stated that you did not want any further treatment or evaluation in the emergency department. You request discharge home now. You are advised that you can come back to this or the nearest emergency department. You expressed understanding of these risks of refusal of further cardiac care right now, that includes . You persisted in your desire to leave against the advice of medical providers. You left emergency department against medical advice. Prescriptions: No Action indomethacin 25 mg capsule 50 mg PO TID PRN (Reason: for gout pain) Qty: 360 2RF albuterol sulfate 90 mcg/actuation HFA aerosol inhaler 2 puff inhalation Q4-6H PRN (Reason: Shortness Of Breath) Qty: 8.5 2RF levetiracetam 500 mg tablet 500 mg PO DAILY Qty: 90 3RF atorvastatin 80 mg tablet 80 mg PO HS Qty: 90 3RF prednisone 10 mg tablet 10 mg PO DAILY Qty: 90 0RF omeprazole 20 mg tablet,delayed release (DR/EC) 20 mg PO BID (DME) Disabled Parking See Rx Instructions .ROUTE .MEDSUPPLY Qty: 1 0RF Rx Instructions: Patient qualifies for disabled parking as per the attached form. aspirin 81 mg Tablet,Delayed Release (Dr/Ec) 81 mg PO DAILY prednisone 20 mg tablet 40 mg PO DAILY Qty: 10 0RF Referrals: Kelvin Holt MD [Primary Care Provider] - Stand Alone Forms: Patient Portal/API
--- NOTE | 2023-10-29 01:46 | DI.RAD.S_ITS ---
PROCEDURE: XR CHEST 1V INDICATIONS: lung infection TECHNIQUE: One view of the chest was acquired. COMPARISON: [facility], CR, XR CHEST 2V, 10/15/2023, 14:52. FINDINGS: Surgical changes and devices: None. Lungs and pleura: Lungs are clear. No pleural effusions or pneumothorax. Mediastinum: Mediastinal contours appear normal. Heart size is normal. Bones and chest wall: No suspicious bony lesions. Overlying soft tissues appear unremarkable. IMPRESSION: No acute cardiopulmonary pathology. No discrepancies from preliminary reading. Dictated by: Juan Ovalles M.D. on 10/29/2023 at 7:38 Approved by: Juan Ovalles M.D. on 10/29/2023 at 7:38
--- NOTE | 2023-10-29 01:46 | EKG_ITS ---
[address] [address] [place] [address] Test Date: 2023-10-29 Pat Name: Sal Blount Department: [facility] Room: Gender: Male Podiatric Surgeon: DILLON : 1955 Requested By: Order Number: [id number] Reading MD: Daniel Stapleton Measurements Intervals Baker Rate: 85 P: AK: QRS: -18 QRSD: 84 T: -32 QT: 376 QTc: 447 Interpretive Statements NORMAL SINUS RHYTHM with poor baseline tracing. Nonspecific T wave abnormality Electronically Signed On 10-30-2023 7:41:50 PDT by Daniel Stapleton
--- NOTE | 2023-10-29 01:48 | DI.RAD.S_ITS ---
PROCEDURE: XR WRIST RT MIN 3V INDICATIONS: right wrist pain TECHNIQUE: 3 views of the wrist were acquired. COMPARISON: None. FINDINGS: Bones: No definite acute fractures or dislocations. 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 No suspicious bony lesions. Soft tissues: No other suspicious soft tissue calcifications. IMPRESSION: No definite acute wrist fracture or dislocation. 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 No significant discrepancies from preliminary reading. Dictated by: Juan Ovalles M.D. on 10/29/2023 at 7:38 Approved by: Juan Ovalles M.D. on 10/29/2023 at 7:40
[2023-10-29 01:51] LABS: Add Manual Diff / Slide Review NO; Basophils Absolute Auto 100 /uL (0-100); Basophils Percent Auto 0.3 % (0-2); Eosinophils Absolute Auto 0 /uL (0-450); Hematocrit 37.8 % (41-53); Lymphocytes Absolute Auto 1100 /uL (1100-4500); Lymphocytes Percent Auto 4.6 % (25-40); Mean Corpuscular HGB Conc 34.4 % (30-36); Mean Corpuscular Hemoglobin 31.2 PG (26-34); Mean Corpuscular Volume 90.6 fL (80-100); Monocytes Absolute Auto 600 /uL (0-900); Monocytes Percent Auto 2.7 % (3-14); Neutrophils Absolute Auto 22000 /uL (1500-7000); Neutrophils Percent Auto 92.4 % (50-75); Platelet Count 125 X10^3/uL (150-400); Red Blood Cell Count 4.18 X10^6/uL (4.5-5.9); Red Cell Distribution Width 15.4 % (11.6-14.8); White Blood Cell Count 23.8 X10^3/uL (4.5-11.0)
[2023-10-29] MEDS: SODIUM CHLORIDE 0.9% 1,000 ML 1000 ML IV ×2 (01:54→02:40)
[2023-10-29 02:05] LABS: Alanine Aminotransferase 26 IU/L (<50); Albumin 3.4 g/dL (3.5-5.0); Albumin Globulin Ratio 1.2 (1.0-2.8); Alkaline Phosphatase 79 U/L (38-126); Aspartate Aminotransferase 85 IU/L (17-59); BUN Creatinine Ratio 20.3 (6-22); Bilirubin Total 0.8 mg/dL (0.2-1.3); Blood Urea Nitrogen 24 mg/dL (9-20); Calcium 8.5 mg/dL (8.4-10.2); Carbon Dioxide 23 mmol/L (22-32); Chloride 95 mmol/L (98-107); Creatine Kinase 533 U/L (55-170); Estimated Glomerular Filt Rate > 60 mL/min (>60); Globulin 2.9 g/dL (1.7-4.1); Glucose 104 mg/dL (80-110); HEMOLYSIS < 15 (0-50); Lactate (Lactic Acid) 1.8 mmol/L (0.7-2.1); Lipase 63 U/L (23-300); Potassium 3.8 mmol/L (3.4-5.1); Sodium 128 mmol/L (137-145); Total Protein 6.3 g/dL (6.3-8.2)
[2023-10-29] MEDS: ONDANSETRON 4 MG/2 ML INJ IV (02:10)
[2023-10-29] MEDS: MORPHINE 4 MG/ML INJ IV ×2 (02:10→03:27)
[2023-10-29] MEDS: KETOROLAC 30 MG/ML VIAL 15 MG IV (02:35)
[2023-10-29] MEDS: methylPREDNISolone 125 MG/2 ML VIAL IV (02:36)
[2023-10-29 02:42] LABS: Erythrocyte Sedimentation Rate 44 MM/HR (0-15)
--- NOTE | 2023-10-29 02:51 | EKG_ITS ---
[facility] [address] [place] [address] Test Date: 2023-10-29 Pat Name: Sal Blount Department: [facility] Room: Gender: Male Parimutuel Cashier: DILLON : 1955 Requested By: Order Number: [id number] Reading MD: Measurements Intervals Bruner Rate: 86 P: 65 ND: 122 QRS: -12 QRSD: 78 T: -12 QT: 396 QTc: 473 Interpretive Statements Normal sinus rhythm Nonspecific ST and T wave abnormality Prolonged QT Electronically Signed On 10-30-2023 7:42:03 PDT by Daniel Stapleton
[2023-10-29] MEDS: HEPARIN 5,000 UNIT/ML VIAL 4500 UNIT IV (03:15)
[2023-10-29] MEDS: HEPARIN DRIP 25,000 UNIT/500 ML IV.SOLN 17.418 UNIT IV (03:15)
[2023-10-29 03:17] LABS: C-Reactive Protein Quant 20.6 mg/dL (<1.0)
[2023-10-29 04:00] LABS: PTT Partial Thromboplastin Tim 35 SECONDS (25.1-36.5)
--- NOTE | 2023-10-29 05:15 | PC.NURSE ---
Lachelle from [facility] has a bed. She will page the hospitalist now.
--- NOTE | 2023-10-29 05:52 | PC.NURSE ---
pt has dx of NSTEMI and unstable angina and will need transfer for higher level of care. I spoke to the following facilities. [facility] -> Spoke with Cori at 0419 and she said that they are unable to take the pt at this time due to having no bed availability as well as several boarding pts in their ED [facility] -> Spoke with Ceferino at 0424 and he said that they are unable to take the pt at this time due to several boarding pts in their ED as well as a 48+ hour waitlist [facility] -> Spoke with Saskia at 0426 and she said that they are unable to take the pt at this time due to boarding pts at all facilities as well as a 72+hour waitlist -> Spoke with Lachelle at 0428 and she said that they most likely will have availability at their [facility] location and will call back with their hospitalist once paged. Imaging and facesheet was pushed at 0430. Pt is on waitlist at this time [facility] -> I spoke with Lisandra at 0433 and she said that they are unable to take the pt at this time due to a 48+ hour waitlist and waiting on several discharges with no estimated time frame Pt was asking about where he might be getting transferred to and I explained all of the facilities that we have reached out to and where might have possible bed availability. Pt expressed he did not want to go to any facilities south of here and would like to just go home and follow up with my Doctor on Tuesday. ALBERT May and Dr. Millan aware and both explained to the pt about going AMA and what that entails and pt was agreeable to going AMA. Lachelle from called back at 0530 with their hospitalist on the line to consult with Dr. Millan. I notified Lachelle at this time that the pt is going AMA and will no longer need the transfer request. Pt was removed from waitlist @ [address] Millan notified
--- NOTE | 2023-10-29 08:05 | PC.NURSE ---
Pt still adamant about leaving AMA. RN discussed risks of bleeding post heparin drip, advised to come back if any trauma occurs as risk of bleeding increases. Pt states he understands. Pt does not want to pursue further medical care. Pt called thomas for DC.
--- NOTE | 2023-10-29 08:09 | PC.NURSE ---
Pt remains on heparin gtt. Respirations regular and unlabored. No acute distress noted. Pt waiting on ride. Pt adamant about leaving AMA. AMA form has been addressed and signed.
--- NOTE | 2023-10-29 20:46 | EKG_ITS ---
[address] [address] Test Date: 2023-10-29 Pat Name: Sal Blount Department: [facility] Room: Gender: Male Parts Room Associate: MICHAEL : 1955 Requested By: Order Number: [id number] Reading MD: Daniel Stapleton Measurements Intervals Thornton Rate: 84 P: 69 ME: 128 QRS: -22 QRSD: 76 T: -34 QT: 380 QTc: 449 Interpretive Statements Normal sinus rhythm Inferior infarct , age undetermined Electronically Signed On 10-30-2023 7:42:43 PDT by Daniel Stapleton
[2023-10-29 21:33] LABS: Acinetobacter calcoa-baumannii Not Detected (Not Detect); Bacteroides fragilis Not Detected (Not Detect); Candida albicans Not Detected (Not Detect); Candida auris Not Detected (Not Detect); Candida glabrata Not Detected (Not Detect); Candida krusei Not Detected (Not Detect); Candida parapsilosis Not Detected (Not Detect); Candida tropicalis Not Detected (Not Detect); Cryptococcus neoformans/gatti Not Detected (Not Detect); Enterobacter cloacae complex Not Detected (Not Detect); Enterobacterales Not Detected (Not Detect); Enterococcus faecalis Not Detected (Not Detect); Enterococcus faecium Not Detected (Not Detect); Haemophilus influenzae Not Detected (Not Detect); Klebsiella aerogenes Not Detected (Not Detect); Listeria monocytogenes Not Detected (Not Detect); Proteus species Not Detected (Not Detect); Pseudomonas aeruginosa Not Detected (Not Detect); Salmonella species Not Detected (Not Detect); Serratia marcescens Not Detected (Not Detect); Staphylococcus epidermidis Not Detected (Not Detect); Staphylococcus lugdunensis Not Detected (Not Detect); Staphylococcus species Not Detected (Not Detect); Stenotrophomonas maltophilia Not Detected (Not Detect); Streptococcus agalactiae (Gr B Not Detected (Not Detect); Streptococcus pneumonia Not Detected (Not Detect); Streptococcus pyogenes (Gr A) Not Detected (Not Detect); Streptococcus species Not Detected (Not Detect)
[2023-10-30 06:56] LABS: Neisseria meningitidis Detected (Not Detect)
== END 2023-10-29 08:13 | disposition left against medical advice (07) ==
PROVIDERS: Emergency Provider Emergency Medicine; PCP Internal Medicine
DX: M25.531 Pain in right wrist (principal); I21.4 Non-ST elevation (NSTEMI) myocardial infarction; Z87.39 Personal history of other diseases of the musculoskeletal system and connective tissue; R79.89 Other specified abnormal findings of blood chemistry
CPT/HCPCS: 36415; 71045; 73110; 80053; 82550; 83605; 83690; 84484; 85025; 85651; 85730; 86140; 87040; 87154; 93005; 99284; J1644; J1885; J2270; J2405; J2919

== ENCOUNTER 2023-10-29 20:30 | Emergency (ER) | payer OTHER, SELFPAY ==
[2021-09-30 19:35] VITALS: BMI 23.3
[2023-10-29] VITALS (9 sets, daily range): BP systolic 110–121; BP diastolic 72–81; PULSE 80–89; RESP 16–27; TEMP 36.7; O2SAT 93–97; BMI 23.6
[2023-10-29 20:52] LABS: Add Manual Diff / Slide Review NO; Basophils Absolute Auto 0 /uL (0-100); Basophils Percent Auto 0.2 % (0-2); Eosinophils Absolute Auto 0 /uL (0-450); Eosinophils Percent Auto 0.1 % (2-4); Hematocrit 36.2 % (41-53); Hemoglobin 12.5 g/dL (13.5-17.5); Lymphocytes Absolute Auto 400 /uL (1100-4500); Lymphocytes Percent Auto 2.5 % (25-40); Mean Corpuscular HGB Conc 34.6 % (30-36); Mean Corpuscular Hemoglobin 31.1 PG (26-34); Monocytes Absolute Auto 400 /uL (0-900); Monocytes Percent Auto 2.4 % (3-14); Neutrophils Absolute Auto 15300 /uL (1500-7000); Neutrophils Percent Auto 94.8 % (50-75); Platelet Count 110 X10^3/uL (150-400); Red Blood Cell Count 4.03 X10^6/uL (4.5-5.9); Red Cell Distribution Width 15.4 % (11.6-14.8); White Blood Cell Count 16.1 X10^3/uL (4.5-11.0)
--- NOTE | 2023-10-29 20:53 | CM.MNRNOTE ---
Pt returns today with right hand pain, without chest pain, without SOB. Pt states today he is feeling better, advised pt at this time it is due to him getting a lot of heparin prior to him leaving A. He states that he will do whatever it takes to get him feeling better today. Updated contact informtation. Tyler our his #1 contacts.
[2023-10-29] MEDS: ASPIRIN 81 MG CHEW TAB 324 MG PO (20:58)
[2023-10-29] MEDS: SODIUM CHLORIDE 0.9% 1,000 ML 150 ML IV (20:59)
[2023-10-29 21:11] LABS: Alanine Aminotransferase 36 IU/L (<50); Albumin 3.5 g/dL (3.5-5.0); Albumin Globulin Ratio 1.1 (1.0-2.8); Alkaline Phosphatase 102 U/L (38-126); Aspartate Aminotransferase 82 IU/L (17-59); BUN Creatinine Ratio 27.7 (6-22); Bilirubin Total 0.9 mg/dL (0.2-1.3); Blood Urea Nitrogen 26 mg/dL (9-20); Calcium 8.4 mg/dL (8.4-10.2); Carbon Dioxide 20 mmol/L (22-32); Chloride 98 mmol/L (98-107); Creatine Kinase 478 U/L (55-170); Estimated Glomerular Filt Rate > 60 mL/min (>60); Globulin 3.1 g/dL (1.7-4.1); Glucose 150 mg/dL (80-110); HEMOLYSIS < 15 (0-50); Lipase 143 U/L (23-300); Potassium 4.5 mmol/L (3.4-5.1); Sodium 127 mmol/L (137-145); Total Protein 6.6 g/dL (6.3-8.2)
[2023-10-29 21:15] LABS: PTT Partial Thromboplastin Tim 34 SECONDS (25.1-36.5)
--- NOTE | 2023-10-29 21:40 | ED.CALLS ---
Critical Lab results: Troponin 9.36 and Blood cultures x2 positive for Gram Negative Diplococci. Monty RUBI given results verbally at this time. Initiated respiratory precautions.
--- NOTE | 2023-10-29 21:57 | ED_ITS ---
HPI - Chest Pain General Chief Complaint: Chest Pain Stated Complaint: thinks having a heart attack Time Seen by Provider: 10/29/23 20:37 Source: patient Mode of arrival: Ambulatory History of Present Illness HPI narrative: 68-year-old male here for likely transfer to cardiac catheterization lab capable facility, returns after Against Medical Advice discharge this morning from this ED facility. Patient was having right-sided wrist pain, did not seem to have any tenderness or swelling or warmth, no fever, initial presentation with low blood pressure, blood cultures were sent, elevated white blood cell count noted at that time [id number] but he had been on a recent prednisone pulse for respiratory rhinovirus illness and takes chronic prednisone for his chronic lung disease, no antibiotics were started, initial low BP responded to IV fluids, blood cultures were sent, never needed pressors, troponin was markedly elevated at 14, on repeat specimen same value 14, no obvious STEMI changes on EKG. Patient was on heparin drip after bolus while in the emergency department last night. Bed search was in progress previous night, possible transfer to [facility] at that time, but then he decided to leave against medical advice yesterday morning. Since discharge he still does not have chest pain or shortness of breath, no headache, no neck pain, no photophobia, no pain or swelling to the right wrist, no rashes, no abdominal pain, no dysuria or frequency of urination. Related Data Home Medications Medication Instructions Recorded Confirmed aspirin 81 mg tablet,delayed 81 mg PO DAILY 09/30/21 07/11/23 release omeprazole 20 mg tablet,delayed 20 mg PO BID 07/12/22 07/11/23 release Previous Rx's Medication Instructions Recorded Disabled Parking #1 ea 03/17/21 indomethacin 25 mg capsule 50 mg (2 x 25 mg) PO TID PRN for 03/01/23 gout pain #360 caps albuterol sulfate 90 mcg/actuation 2 puff inhalation Q4-6H PRN 06/20/23 aerosol inhaler Shortness Of Breath #8.5 grams levetiracetam 500 mg tablet 500 mg PO DAILY #90 tabs 08/18/23 atorvastatin 80 mg tablet 80 mg PO HS #90 tabs 09/27/23 prednisone 20 mg tablet 40 mg (2 x 20 mg) PO DAILY #10 tabs 10/15/23 prednisone 10 mg tablet 10 mg PO DAILY #90 tabs 10/28/23 Allergies Allergy/AdvReac Type Severity Reaction Status Date / Time No Known Drug Allergies Allergy Verified 10/15/23 14:47 Review of Systems Review of Systems Narrative: see HPI Patient History Medical History Cellulitis of arm, left Easy bruisability Gout Enlarged prostate HTN (hypertension) Chronic back pain Chronic rhinosinusitis BPH w urinary obs/LUTS Complex partial seizure disorder Unspecified asthma (01/26/11) Gout, chronic (01/26/11) Steroid-dependent asthma Osteopenia GERD (gastroesophageal reflux disease) Non-STEMI (non-ST elevated myocardial infarction) (06/2009) CAD (coronary artery disease) Mixed hyperlipidemia (06/23/16) Essential hypertension (06/01/16) Cerebrovascular accident (CVA) (05/29/13) Surgical History Status post left partial knee replacement (~11/2022) Hx of sinus surgery Hx of LASIK S/P shoulder surgery (02/07/20) Status post cardiac catheterization (06/2009) Status post arthroscopy (2002) Social History household members: spouse Smoking Status: Never smoker alcohol intake: current Smoking Status: Never smoker alcohol intake frequency: 3 or more drinks per day Substance Use Type: does not use Exam Narrative Exam Narrative: GENERAL: Well-developed patient, in mild distress. HEAD: Atraumatic. Normocephalic. EYES: Pupils equal round and reactive. Extraocular motions intact. No scleral icterus. No injection or drainage. ENT: Nose without bleeding, purulent drainage. Throat without erythema, tonsillar hypertrophy or exudate. Airway patent. NECK: Trachea midline. Non tender, supple neck nontender CARDIOVASCULAR: Regular rate and rhythm without murmurs, gallops, or rubs. RESPIRATORY: Clear to auscultation. Breath sounds equal bilaterally. No wheezes, rales, or rhonchi. GASTROINTESTINAL: Abdomen soft, non-tender, nondistended. EXTREMITIES: Still no tenderness to right wrist area, nor any warmth or effusion, can flex extend right wrist, also elbow shoulder fingers. No edema or joint tenderness. BACK: Nontender without deformity or crepitance. No flank tenderness. NEURO: AOx3. Motor functions grossly nonfocal SKIN: No rash or erythema of visible areas. No petechiae. Initial Vital Signs Initial Vital Signs: Vital Signs Pulse Rate 87 10/29/23 20:40 Respiratory Rate 21 10/29/23 20:40 Pulse Oximetry 97 10/29/23 20:40 Course Orders Ordered: Discontinued Medications Aspirin (Aspirin 81 Mg Chew Tab) 324 mg PO NOW ONE Stop: 10/29/23 20:38 Last Admin: 10/29/23 20:58 Dose: 324 mg Documented By: AB Doxycycline Hyclate (Doxycycline Hyclate 100 Mg Tablet) 100 mg PO NOW ONE Stop: 10/30/23 02:48 Last Admin: 10/30/23 03:00 Dose: 100 mg Documented By: AB Heparin Sodium (Porcine) (Heparin 5,000 Unit/Ml Vial) 4,500 unit 60 unit/kg (4500 unit) IV NOW ONE Stop: 10/29/23 21:59 Last Admin: 10/29/23 22:29 Dose: 4,500 unit Documented By: AB Sodium Chloride (Normal Saline 0.9%) 1,000 mls @ 150 mls/hr IV CONT NGHIA Last Infusion: 10/29/23 21:47 Dose: Infused Documented By: Admin: 10/29/23 20:59 Dose: 150 mls/hr Documented By: AB Ceftriaxone Sodium 2,000 mg/ (Sodium Chloride) 100 mls @ 200 mls/hr IV NOW ONE Stop: 10/29/23 22:02 Last Infusion: 10/29/23 22:40 Dose: Infused Documented By: Admin: 10/29/23 22:09 Dose: 200 mls/hr Documented By: AB Heparin Sodium/Dextrose (Heparin Drip) 25,000 unit in 500 mls @ 17.418 mls/hr IV CONT NGHIA; Protocol Last Admin: 10/29/23 22:28 Dose: 12 units/kg/hr, 17.418 mls/hr Documented By: Co-signed By: ARABELLA Morphine Sulfate (Morphine 4 Mg/Ml Inj) 4 mg IV NOW ONE Stop: 10/29/23 22:03 Last Admin: 10/29/23 22:27 Dose: 4 mg Documented By: Morphine Sulfate (Morphine 4 Mg/Ml Inj) 4 mg IV NOW ONE Stop: 10/30/23 00:51 Last Admin: 10/30/23 00:54 Dose: 4 mg Documented By: AB Vital Signs Vital signs: Vital Signs - 8 hr 10/29/23 23:00 10/29/23 23:00 10/29/23 23:30 Pulse Rate 84 Respiratory Rate 26 H Blood Pressure 121/72 114/81 Pulse Oximetry 94 Oxygen Delivery Method Oxygen Flow Rate 10/29/23 23:30 10/30/23 00:00 10/30/23 00:00 Pulse Rate 80 82 Respiratory Rate 17 22 Blood Pressure 133/83 Pulse Oximetry 95 95 Oxygen Delivery Method Room Air Oxygen Flow Rate 10/30/23 00:30 10/30/23 00:30 10/30/23 01:00 Pulse Rate 84 88 Respiratory Rate 22 23 Blood Pressure 124/82 Pulse Oximetry 95 90 L Oxygen Delivery Method Oxygen Flow Rate 10/30/23 01:00 10/30/23 01:30 10/30/23 01:30 Pulse Rate 84 Respiratory Rate 22 Blood Pressure 119/79 124/82 Pulse Oximetry 95 Oxygen Delivery Method Oxygen Flow Rate 10/30/23 02:00 10/30/23 02:30 10/30/23 03:00 Pulse Rate 86 89 80 Respiratory Rate 23 25 H 19 Blood Pressure Pulse Oximetry 93 93 94 Oxygen Delivery Method Nasal Cannula Oxygen Flow Rate 2 10/30/23 03:30 10/30/23 04:00 10/30/23 04:30 Pulse Rate 94 H 88 85 Respiratory Rate 21 21 23 Blood Pressure Pulse Oximetry 97 97 Oxygen Delivery Method Nasal Cannula Oxygen Flow Rate 2 10/30/23 05:00 10/30/23 05:30 10/30/23 06:00 Pulse Rate 88 86 129 H Respiratory Rate 27 H 26 H 33 H Blood Pressure Pulse Oximetry 100 100 95 Oxygen Delivery Method Oxygen Flow Rate 10/30/23 06:43 10/30/23 06:44 Pulse Rate 85 Respiratory Rate 23 Blood Pressure 136/77 Pulse Oximetry 98 Oxygen Delivery Method Room Air Oxygen Flow Rate MDM - Chest Pain Lab Data Attestation: I reviewed the patient's lab results. 10/30/23 04:35 10/29/23 20:44 Labs: Lab Results 10/29/23 10/30/23 Range/Units 20:44 04:35 WBC 16.1 H (4.5-11.0) X10^3/uL RBC 4.03 L (4.5-5.9) X10^6/uL Hgb 12.5 L 13.1 L (13.5-17.5) g/dL Hct 36.2 L 38.1 L (41-53) % MCV 90.0 (80-100) fL MCH 31.1 (26-34) PG MCHC 34.6 (30-36) % RDW 15.4 H (11.6-14.8) % Plt Count 110 L 115 L (150-400) X10^3/uL Neut % (Auto) 94.8 H (50-75) % Lymph % (Auto) 2.5 L (25-40) % [place] % (Auto) 2.4 L (3-14) % Eos % (Auto) 0.1 L (2-4) % Baso % (Auto) 0.2 (0-2) % Neut # (Auto) 00863 H (0216-1517) /uL Lymph # (Auto) 400 L (0968-5575) /uL [place] # (Auto) 400 (0-900) /uL Eos # (Auto) 0 (0-450) /uL Baso # (Auto) 0 (0-100) /uL APTT 34 54 H D (25.1-36.5) SECONDS Sodium 127 L (137-145) mmol/L Potassium 4.5 (3.4-5.1) mmol/L Chloride 98 (98-107) mmol/L Carbon Dioxide 20 L (22-32) mmol/L BUN 26 H (9-20) mg/dL Creatinine 0.94 (0.66-1.25) mg/dL Estimated GFR > 60 (>60) mL/min BUN/Creatinine Ratio 27.7 H (6-22) Glucose 150 H (80-110) mg/dL Calcium 8.4 (8.4-10.2) mg/dL Total Bilirubin 0.9 (0.2-1.3) mg/dL AST 82 H (17-59) IU/L ALT 36 (<50) IU/L Alkaline Phosphatase 102 (38-126) U/L Total Creatine Kinase 478 H (55-170) U/L Troponin I 9.360 H* (0.01-0.034) ng/mL Total Protein 6.6 (6.3-8.2) g/dL Albumin 3.5 (3.5-5.0) g/dL Globulin 3.1 (1.7-4.1) g/dL Albumin/Globulin Ratio 1.1 (1.0-2.8) Lipase 143 D (23-300) U/L ECG Data Attestation: I personally reviewed and interpreted this ECG as follows: Interpretation: Normal sinus rhythm with rate 84, no obvious ST segment elevation or depression changes. T-wave inversions again seen inferiorly. Similar to study last night. W[place] 128, QRS 76, QTC 449. MDM Narrative Medical decision making narrative: 68-year-old male with right wrist pain, elevated troponin, EKG without obvious STEMI changes, IV heparin, had refused transferred and then left this morning Against Medical Advice, he returns now willing to be transferred, still having left sided wrist discomfort, not worse with movement, no pain or swelling, no rashes. Afebrile, normotensive. Screening EKG with inferior T-wave inversions. White blood cell count 23690 not as high as yesterday 98976. Lactate normal. Sodium further decreased to 127 today. Troponin 9 today not as high as yesterday at 14 but still markedly elevated. IV heparin bolus and infusion per ACS restarted. Oral aspirin. While in the emergency department microbiology lab called RN, from initial visit yesterday, patient has blood culture growing Gram-negative diplococci, likely Neisseria, PCR suspicious for Neisseria meningitidis. IV ceftriaxone 2gm ordered. Respiratory droplet precautions. Patient does not seem to have meningismus. Patient does not seem to have painful swollen joints. No petechiae. Normotensive this visit so far. 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 Sensitivity information pending. See PCR blood culture report. 0100, case discussed with [facility] hospitalist Dr Sidhu, she requests consultation with Cardiology and Infectious diseases and Orthopedic surgery before she can accept for transfer 0115, case discussed with [facility] cardiology Dr Siegel, she has no additional recommendations, she will consult if patient is transferred 0130, case discussed with [facility] infectious diseases Dr Sam, agrees with IV Rocephin dose given, consider another set of blood cultures x2, consider repeat chest x-ray from yesterday, consider echocardiogram (not available here now), consider tapping in the wrist, he can consult further if patient is transfer 0140, case discussed with [facility] orthopedic surgery Dr Del Castillo, he is available for consultation as needed if patient is transferred I discussed wrist arthrocentesis with the patient, showed him the landmarks on myself how this typically would be done, showed on him where this can be done on his right wrist, can be more difficult in the setting of osteoarthritis with joint space might be smaller, but could be attempted here, he prefers not to have arthrocentesis at this time, and would defer wrist arthrocentesis to [facility] if needed Chest x-ray PA and lateral today. Impressions: ?Multifocal pulmonary infiltrates within the right upper middle and lower lobes. Follow up chest radiograph after appropriate treatment to document resolution. See telerad report. Of note chest x-ray from previous visit 10/29/23 yesterday read as negative, see that report. IV Ceftriaxone given prior, will add PO Doxycycline. Pneumonia added as transfer diagnosis. No Echo available at this hour. Blood cultures x2 sent from here [facility]. Consider right wrist tap but patient did not give verbal consent at this time DUPLICATING MACHINE OPERATOR phoned the [facility] Master Control Supervisor. relayed that requested consultations have been obtained, documented in the chart. [facility] has accepted patient for transfer, awaiting bed assignment. 0645, still awaiting transportation to [facility] for transfer admission, anticipated within the next 1/2 hour Critical Care Time Critical Care Time Critical Care Time: Yes Total Critical Care Time: 35 Attestation: The high probability of a clinically significant, sudden or life threatening deterioration of the [cardiopulmonary, musculoskeletal,] system(s) required my full and direct attention, intervention and personal management. The aggregate critical care time was [35] minutes. This time is in addition to time spent performing reported procedures but includes the following: [x] Data Review and interpretation [x] Patient assessment and monitoring of vital signs [x] Documentation [x] Medication orders and management Discharge Plan Departure Patient Disposition: [facility] Clinical Impression: Bacteremia, Acute pain of right wrist, Elevated troponin level, Hyponatremia, Pneumonia Prescriptions: No Action indomethacin 25 mg capsule 50 mg PO TID PRN (Reason: for gout pain) Qty: 360 2RF albuterol sulfate 90 mcg/actuation HFA aerosol inhaler 2 puff inhalation Q4-6H PRN (Reason: Shortness Of Breath) Qty: 8.5 2RF levetiracetam 500 mg tablet 500 mg PO DAILY Qty: 90 3RF atorvastatin 80 mg tablet 80 mg PO HS Qty: 90 3RF prednisone 10 mg tablet 10 mg PO DAILY Qty: 90 0RF omeprazole 20 mg tablet,delayed release (DR/EC) 20 mg PO BID (DME) Disabled Parking See Rx Instructions .ROUTE .MEDSUPPLY Qty: 1 0RF Rx Instructions: Patient qualifies for disabled parking as per the attached form. aspirin 81 mg Tablet,Delayed Release (Dr/Ec) 81 mg PO DAILY prednisone 20 mg tablet 40 mg PO DAILY Qty: 10 0RF Referrals: Kelvin Holt MD [Primary Care Provider] -
[2023-10-29] MEDS: cefTRIAXone 2,000 MG in SODIUM CHLORIDE 0.9% 100 ML 200 MG IV (22:09)
[2023-10-29] MEDS: MORPHINE 4 MG/ML INJ IV (22:27)
[2023-10-29] MEDS: HEPARIN DRIP 25,000 UNIT/500 ML IV.SOLN 17.418 UNIT IV (22:28)
[2023-10-29] MEDS: HEPARIN 5,000 UNIT/ML VIAL 4500 UNIT IV (22:29)
[2023-10-30] VITALS (15 sets, daily range): BP systolic 119–136; BP diastolic 77–83; PULSE 80–129; RESP 19–33; O2SAT 90–100
[2023-10-30] MEDS: MORPHINE 4 MG/ML INJ IV (00:54)
--- NOTE | 2023-10-30 01:42 | DI.RAD.S_ITS ---
PROCEDURE: XR CHEST 2V INDICATIONS: eval for pneumonia TECHNIQUE: 2 views of the chest were acquired. COMPARISON: [facility], CR, XR CHEST 2V, 10/15/2023, 14:52. [facility], CR, XR CHEST 1V, 10/29/2023, 2:10. FINDINGS: Surgical changes and devices: None. Lungs and pleura: Right lower lobe airspace opacity at the lung base only seen on lateral view. Patchy infiltrates within the right middle and upper lobes. No pleural effusions or pneumothorax. Mediastinum: Mediastinal contours are normal. Heart size is normal. Calcified mediastinal lymph nodes Bones and chest wall: No suspicious bony abnormalities. Soft tissues appear unremarkable. IMPRESSION: Multifocal airspace opacities opacity most prominent within the right lung base seen on the lateral suggestive of multifocal pneumonia. Concordant with overnight interpretation. Dictated by: Richi Alberto M.D. on 10/30/2023 at 7:56 Approved by: Richi Alberto M.D. on 10/30/2023 at 8:00
[2023-10-30] MEDS: DOXYCYCLINE HYCLATE 100 MG TABLET PO (03:00)
[2023-10-30 05:05] LABS: PTT Partial Thromboplastin Tim 54 SECONDS (25.1-36.5)
[2023-10-30 05:08] LABS: Hematocrit 38.1 % (41-53); Hemoglobin 13.1 g/dL (13.5-17.5); Platelet Count 115 X10^3/uL (150-400)
--- NOTE | 2023-10-30 06:32 | PC.NURSE ---
pt has dx of NSTEMI and unstable angina and will need transfer for higher level of care. I spoke to the following facilities. [facility] -> Spoke with Cori at 0009 and she said that they do have beds available and to send over a packet so she can page the hospitalist. Packet was pushed over at 0017 Prov/[place] -> Spoke with Octaviano at 0054 and he said that they are unable to take the pt at this time due to several boarding pts in their facilities as well as a 72+ hour wait ->Spoke with Julio at 2345 and he said that they have several other pts needing placement but most likely could get a bed for the pt by the end of the night. facesheet and imaging was pushed at 2355. pt is on waitlist at this time Pt was accepted at [facility] and was removed from all other waitlists ALBERT Sepulveda and Dr. Millan aware
--- NOTE | 2023-10-30 07:06 | PC.NURSE ---
Attempted to call [facility] 2 times without success. Day shift advised.
--- NOTE | 2023-11-04 08:37 | PC.NURSE ---
late entry- patient was transferred with Heparin drip infusing per RN
== END 2023-10-30 07:11 | disposition short-term general hospital (02) ==
PROVIDERS: Emergency Provider Emergency Medicine; PCP Internal Medicine
DX: J18.9 Pneumonia, unspecified organism (principal); E87.1 Hypo-osmolality and hyponatremia; R78.81 Bacteremia; M25.531 Pain in right wrist; R79.89 Other specified abnormal findings of blood chemistry; I21.4 Non-ST elevation (NSTEMI) myocardial infarction; Z87.39 Personal history of other diseases of the musculoskeletal system and connective tissue; Z53.29 Procedure and treatment not carried out because of patient's decision for other reasons
CPT/HCPCS: 36415; 71045; 71046; 73110; 80053; 82550; 83605; 83690; 84484; 85014; 85018; 85025; 85049; 85651; 85730; 86140; 87040; 87077; 87154; 87185; 93005; 96361; 96365; 96366; 96367; 96375; 96376; 99284; 99285; 99291; J0696; J1644; J1885; J2270; J2405; J2919